=== PATIENT | male | born 1980 | race African-American/Black ===

== ENCOUNTER 2018-01-26 19:13 | Observation (INO) | payer OTHER ==
[2018-01-26] MEDS ORDERED: SODIUM CHLORIDE 0.9% 500 ML INFUS.BAG IV ONE ×2 (20:24→22:55)
[2018-01-26] MEDS ORDERED: ONDANSETRON 4 MG/2 ML VIAL IVPUSH ONE (20:25)
--- NOTE | 2018-01-26 20:30 | PDOC ---
History of Present Illness - General Chief Complaint: Blood Sugar Problem Stated Complaint: VOMIT,DIABETIC,ABD PAIN Time Seen by Provider: 01/26/18 20:07 History Source: Patient Exam Limitations: No Limitations - History of Present Illness Initial Comments: 37 yo M w a hx of diabetes presents to the ER via taxi with his mother stating he has abdominal pain, SOB and difficulty breathing, nausea, vomiting, and fevers up to 102. He went to [facility] yesterday where he said they did bloodwork , urine work, and a chest X-ray but everything looked okay so they discharged him home. He says he is back here for the same reason. He is afebrile here in the ER and he reports that he has not taken any medications for pain or fever. PCP: Darrell Saldana Allergies: Penicillin Social Hx: Denies smoking, drinking, or other illicit drug usage Past History - Past Medical History Allergies/Adverse Reactions: Allergies Allergy/AdvReac Type Severity Reaction Status Date / Time Penicillins AdvReac Verified 01/26/18 19:36 Home Medications: Ambulatory Orders Dulaglutide [Trulicity] 0.75 mg SQ WEEKLY 01/27/18 Glipizide Xl [Glucotrol Xl -] 2.5 mg PO DAILY 01/27/18 Lisinopril 5 mg PO DAILY 01/27/18 - Suicide/Smoking/Psychosocial Hx Smoking History: Current some day smoker Have you smoked in the past 12 months: No Information on smoking cessation initiated: No Hx Alcohol Use: No Drug/Substance Use Hx: No Review of Systems - Review of Systems Able to Perform ROS?: Yes Comments:: CONSTITUTIONAL: Present: Fever, chills Absent: no fatigue EYES: Absent: visual changes ENT: Absent: ear pain, no sore throat CARDIOVASCULAR: Absent: chest pain, no palpitations RESPIRATORY: Present: SOB Absent: cough GI: Present: Abdominal pain, nausea Absent: no vomiting, no constipation, no diarrhea GENITOURINARY: Absent: dysuria, no frequency, no hematuria MUSKULOSKELETAL: Absent: back pain, no arthralgia, no myalgia SKIN: Absent: rash NEURO: Absent: headache *Physical Exam - Vital Signs Last Vital Signs Temp Pulse Resp BP Pulse Ox 98.3 F 103 H 18 125/80 100 01/26/18 19:32 01/26/18 19:32 01/26/18 19:32 01/26/18 19:32 01/26/18 19:32 - Physical Exam General Appearance: Yes: Nourished, Appropriately Dressed, Moderate Distress HEENT: positive: EOMI, PRO, Normal ENT Inspection, Normal Voice Neck: positive: Trachea midline. negative: Decreased range of motion, Stridor Respiratory/Chest: positive: Lungs Clear, Normal Breath Sounds. negative: Respiratory Distress, Accessory Muscle Use, Labored Respiration Cardiovascular: positive: S1, S2, Tachycardia. negative: Edema, Murmur Vascular Pulses: Dorsalis-Pedis (R): 2+, Doralis-Pedis (L): 2+ Gastrointestinal/Abdominal: positive: Normal Bowel Sounds, Tender, Flat, Soft. negative: Distended, Guarding, Rebound Lymphatic: negative: Adenopathy Musculoskeletal: positive: Normal Inspection. negative: CVA Tenderness Extremity: positive: Normal Capillary Refill Integumentary: positive: Normal Color, Dry, Warm Neurologic: positive: pay per click strategist II-XII NML intact, Fully Oriented, Alert, Normal Mood/ Affect Moderate Sedation - Procedure Monitoring Vital Signs: Procedure Monitoring Vital Signs Temperature 98.3 F 01/26/18 19:32 Pulse Rate 103 H 01/26/18 19:32 Respiratory Rate 18 01/26/18 19:32 Blood Pressure 125/80 01/26/18 19:32 O2 Sat by Pulse Oximetry (%) 100 01/26/18 19:32 ED Treatment Course - LABORATORY CBC & Chemistry Diagram: 01/26/18 21:45 01/26/18 21:45 Medical Decision Making - Medical Decision Making 37 yo M w a hx of diabetes presents to the ER via taxi with his mother stating he has abdominal pain, SOB and difficulty breathing, nausea, vomiting, and fevers up to 102. DDx IBNLT: DKA, HHNS, Appendicitis, cholecystitis, other infection, dehydration , URI, PNA Plan: Cbc, Cmp, Acetone, UA/UC, CXR, IV hydration, Zofran, CT with contrast, re- assess. Blood glucose mildly elevated in high 200's CTAP showed sigmoid colitis which can explain the patients symptoms. He has received 4 liters of fluid and still not urinated. Despite getting zofran he cannot tolerate PO. Will admit patient for colitis and dehydration. *DC/Admit/Observation/Transfer Diagnosis at time of Disposition: Colitis, Dehydration, Unable to eat - Discharge Dispostion Condition at time of disposition: Guarded Decision to Admit order: Yes - Referrals - Patient Instructions - Post Discharge Activity
[2018-01-26 21:54] LABS: EOS % 0.1 % (0-4.5); HEMOGLOBIN 14.9 GM/dL (11.7-16.9); LYMPH % 20.7 % (8-40); MCH 32.4 pg (25.7-33.7); MCHC 35.6 g/dl (32.0-35.9); MEAN PLT VOLUME 8.5 fl (7.5-11.1); MONO % 9.7 % (3.8-10.2); NEUT % 68.5 % (42.8-82.8); PLATELET COUNT 270 K/MM3 (134-434); RBC 4.61 M/mm3 (4.00-5.60); WHITE BLOOD COUNT 9.2 K/mm3 (4.0-10.0)
[2018-01-26] MEDS ORDERED: ONDANSETRON 4 MG/2 ML VIAL ONE (21:58)
[2018-01-26 22:13] LABS: ACETONE SERUM TRACE (NEGATIVE)
[2018-01-26 22:25] LABS: ALBUMIN 3.7 g/dl (3.4-5.0); ALK PHOS 80 U/L (45-117); ANION GAP 11 MMOL/L (8-16); BILIRUBIN,TOTAL 1.1 mg/dL (0.2-1); BLOOD UREA NITROGEN 22 mg/dL (7-18); CALCIUM 8.6 mg/dL (8.5-10.1); CHLORIDE 101 mmol/L (98-107); CO2 23 mmol/L (21-32); CREATININE 1.2 mg/dL (0.55-1.3); GLUCOSE,RANDOM 285 mg/dL (74-106); POTASSIUM 4.6 mmol/L (3.5-5.1); SGOT/AST 24 U/L (15-37); SGPT/ALT 29 U/L (13-61); SODIUM 135 mmol/L (136-145); TOT PROT 6.6 g/dl (6.4-8.2)
--- NOTE | 2018-01-26 22:55 | PDOC ---
Attending Attestation - Resident Resident Name: Murali Aburto - ED Attending Attestation I have performed the following: I have examined & evaluated the patient, The case was reviewed & discussed with the resident, I agree w/resident's findings & plan, Exceptions are as noted - HPI HPI: 01/26/18 22:50 37 yo male h/o DM here with c/o n/v since 3 days. pt states he hasn't urinated in few days. no f/c c/o generalized abd pain, worse in rlq . no diarreha. no prior abd surgeries. was seen at [facility], had ua cxr and labs. was dc home. since that time pt nausea nd pain has worsenend. unable to tolerate PO. no urinary complaints except he hasnt urinated. - Physicial Exam PE: 01/26/18 22:52 awake alert dry mucous membranes. lungs clear bilaterally heart reg tachycardia. abd soft mild rlq ttp. no rebound no guarding. no cva tenderness. extwwp no rash. no edema. nuero alert oriented. - Medical Decision Making 01/26/18 22:53 37 yo m with h/o dm n/v. differnetial diagnosis includes renal failure, appendicitis, renal colic, dka electrolyte abnormalityl. pt dry on exam. will hydrate with 2 L NS, labs ct a/p ua. antiemetics, Heart Score/ECG Review #1 General ECG Interpretation: Sinus Rhythm, Normal Rate (81), Normal Intervals, No acute ischemic changes
[2018-01-26] MEDS ORDERED: ACETAMINOPHEN 1000 MG/100 ML VIAL (NON FORMULARY) IVPB ONE (23:00)
[2018-01-26] MEDS ORDERED: ACETAMINOPHEN INJECTION 100 ML IVPB ONE (23:16)
[2018-01-27] MEDS ORDERED: SODIUM CHLORIDE 0.9% 500 ML INFUS.BAG IV ONE (01:27)
[2018-01-27] MEDS ORDERED: METOCLOPRAMIDE HCL INJECTION 10 MG/2 ML VIAL IVPUSH ONE (02:05)
[2018-01-27] MEDS ORDERED: METOCLOPRAMIDE HCL INJECTION 10 MG/2 ML VIAL ONE (02:24)
[2018-01-27] MEDS ORDERED: INSULIN SLIDING SCALE (NOVOLOG) 1 VIAL SQ SCH (03:30)
[2018-01-27] MEDS ORDERED: PANTOPRAZOLE SODIUM 40 MG VIAL IVPUSH ONE (03:34)
--- NOTE | 2018-01-27 03:34 | PN ---
Teaching Attending Note Name of Resident: Moshe Martinez ATTENDING PHYSICIAN STATEMENT I saw and evaluated the patient. I reviewed the resident's note and discussed the case with the resident. I agree with the resident's findings and plan as documented. SUBJECTIVE: Seen and examined; is a 37 y/o AAM with a PMH of IDDM2 and HTN who presents with a CC of abdominal pain and vomiting since thrsday; was seen at [facility] and discharged home, per him, without any medications at home. Nothing making his sx better or worse. There was some streaky red blood/dark vomit x1 earlier today; after the red blood went darkish and green, gastric occult blood pending but BUN slightly elevated. He does relay a h/o wretching. No h/o cirrhosis, etc. He tells us his last A1c >10. No prior h/o DM gastroparesis, no mmj use, etc. Denies any history of diarrhea, bloody stool, etc. CT scan shows colitis. Was hydrated and given antiemetics and analgesia in the ER which did improve his sx slightly. He hasn't seen GI or been scoped in the past. He will be willing to try oral abx once he is cleared by GI. 10 sys ROS done and negative aside from HPI PMH and PSH reviewed FH asked and noncontributory Socially he denies drug or alcohol abuse and is a former smoker Medication list reviewed OBJECTIVE: VS, labs, imaging reviewed NAD, resting in bed CN2-12 wnl, no fnd Mildly diffusely tender without any rebound or guarding, +BS, nondistended Normal mood, appropirate behavior Lungs CTAB, sym exp Labs reviewed; slightly elevated BUN. CBC wnl. Imaging reviewed; L-sided distal colitis from splenic flexure to sigmoid, final report to follow EKG reviewed Not on the monitor ASSESSMENT AND PLAN: This is a 37 y/o AAM presenting to the ER with a CC of abdominal pain and vomiting found to have colitis; he had 1x blood in vomit with wretching and cyclical vomiting which is also suspicious for MW tear 1) Acute Colitis -Seen on CT; no wbc, no fever here but was febrile at home -IV metro/levaquin; switch to oral when cleared to by GI -Followup blood and stool cx -Checking ESR/CRP, lactoferrin, Cdif 2) Blood in Vomit -History suggests MW tear but of course will be mindful of other causes. NPO, LR@100 when NPO, IV BID Protonix, GI consult. No h/o cirrhosis, etc. Plts normal. BUN slightly elevated. Change abx to PO when OK to tolerate PO. May need procedure. Appreciate subspecialist input. Will ultimately defer management to their service and of course will contact overnight should the patient decompensate. 3) Cyclical Vomiting -As colitis is acutely the issue on CT we will treat that and manage the vomiting PRN with zofran. -If persists despite treatment consider other causes (check for DM gastroparesis , etc.) 4) Uncontrolled DM -Check A1c, SSI q4h when NPO and then move to AC+HS when eating 5) HTN -Monitor, tx if >160, confirm medications with pharmacy and ensure is on optimal tx in accordance with guidelines. FENA -LR@100 -PRN replete -NPO -As tolerated Consultants: GI Dispo: Once cleared by GI, if he is tolerating PO abx and symptomatically improved can prep for DC Full Code
[2018-01-27] MEDS ORDERED: METOCLOPRAMIDE HCL INJECTION 10 MG/2 ML VIAL IVPUSH PRN (03:37)
[2018-01-27] MEDS ORDERED: ACETAMINOPHEN 1000 MG/100 ML VIAL (NON FORMULARY) IVPB PRN (03:38)
--- NOTE | 2018-01-27 03:41 | HP ---
CHIEF COMPLAINT: Nausea, vomiting, Abdominal pain PCP: Darrell Saldana HISTORY OF PRESENT ILLNESS: 37 yo male with NIDDM, HTN, admitted following 3 days of severe abdominal pain, nausea and vomiting with intolerance to PO intake. He states he has never had anything like this before, and he denies eating any unusual foods or anything he things could have possibly gone bad. He endorses now 3 days without tolerating anything PO, saying that most of everything he attempts to eat or drink is vomited up within 5 minutes. He endorses a fever today at home of 102 orally which prompted him to come to the ED for further evaluation. He endorses a very small amount of blood in his vomit that has started today and was not initially present but otherwise states that all of his vomit comes up brown regardless of what he has tried to eat or drink. He has had an episode of gastritis 10 years ago which was treated with pepsid and resolved. He states that this is very different from that episode and the pain is worse and located on the right side of his abdomen. When asked about his diabetic history he claims he follows up with his primary care physician every 3-6 months and that he thinks his last A1C was around 12. Of note he also states that he has not moved his bowels since (4 days ago) and has not urinated since Saturday ( 3 days ago). Pts mother is present for the entirety of the interview and exam. ER course was notable for: (1) 4L NS bolus (2) Zofran and Reglan without much relief (3) CT abd/pelv noted with wall thickening consistent for colitis and a large full bladder Recent Travel: none PAST MEDICAL HISTORY: NIDDM, HTN PAST SURGICAL HISTORY: T&A as a child Social History: Smoking: Former, quit 6 months ago, hx of one black and mild a day Alcohol: Denies Drugs: Denies Family History: Allergies Penicillins Adverse Reaction (Verified 01/26/18 19:36) HOME MEDICATIONS: Home Medications Medication Instructions Recorded Dulaglutide [Trulicity] 0.75 mg SQ WEEKLY 01/27/18 Glipizide Xl [Glucotrol Xl -] 2.5 mg PO DAILY 01/27/18 Lisinopril 5 mg PO DAILY 01/27/18 REVIEW OF SYSTEMS CONSTITUTIONAL: Absent: fever, chills, diaphoresis, generalized weakness, malaise, loss of appetite, weight change HEENT: Absent: rhinorrhea, nasal congestion, throat pain, throat swelling, difficulty swallowing, mouth swelling, ear pain, eye pain, visual changes CARDIOVASCULAR: Absent: chest pain, syncope, palpitations, irregular heart rate, lightheadedness , peripheral edema RESPIRATORY: Absent: cough, shortness of breath, dyspnea with exertion, orthopnea, wheezing , stridor, hemoptysis GASTROINTESTINAL: abdominal pain, nausea, vomiting Absent: abdominal distension, , diarrhea, constipation, melena, hematochezia GENITOURINARY: Absent: dysuria, frequency, urgency, hesitancy, hematuria, flank pain, genital pain MUSCULOSKELETAL: Absent: myalgia, arthralgia, joint swelling, back pain, neck pain SKIN: Absent: rash, itching, pallor HEMATOLOGIC/IMMUNOLOGIC: Absent: easy bleeding, easy bruising, lymphadenopathy, frequent infections ENDOCRINE: Absent: unexplained weight gain, unexplained weight loss, heat intolerance, cold intolerance NEUROLOGIC: Absent: headache, focal weakness or paresthesias, dizziness, unsteady gait, seizure, mental status changes, bladder or bowel incontinence PSYCHIATRIC: Absent: anxiety, depression, suicidal or homicidal ideation, hallucinations. PHYSICAL EXAMINATION Vital Signs - 24 hr 01/26/18 01/27/18 19:32 03:35 Temperature 98.3 F 98.4 F Pulse Rate 103 H Pulse Rate [ 85 Apical] Respiratory 18 18 Rate Blood Pressure 125/80 Blood Pressure 120/84 [Left] O2 Sat by Pulse 100 100 Oximetry (%) GENERAL: A&O, mild acute distress HEAD: Normocephalic, atraumatic. EYES: PERRL, no scleral icterus EARS, NOSE, THROAT: oropharynx clear without exudates. Moist mucous membranes. NECK: supple without lymphadenopathy LUNGS: CTA b/l, no crackles or wheezes HEART: Regular rate and rhythm, normal S1 and S2 without murmur ABDOMEN: Soft, mildly tender to palpation moreso on the right, hyperoactive bowel sounds EXTREMITIES: 2+ pulses, warm, well-perfused. No peripheral edema. NEUROLOGICAL: Cranial nerves II-XII grossly intact. Normal speech. PSYCHIATRIC: Cooperative. Good eye contact. Appropriate mood and affect. SKIN: Warm, dry, no rashes or lesions noted Laboratory Results - last 24 hr 01/26/18 01/26/18 21:45 21:45 WBC 9.2 RBC 4.61 Hgb 14.9 Hct 42.0 MCV 91.0 MCH 32.4 MCHC 35.6 RDW 13.0 Plt Count 270 MPV 8.5 Absolute Neuts (auto) 6.3 Neutrophils % 68.5 Lymphocytes % 20.7 Monocytes % 9.7 Eosinophils % 0.1 Basophils % 1.0 Nucleated RBC % 0 Sodium 135 L Potassium 4.6 Chloride 101 Carbon Dioxide 23 Anion Gap 11 BUN 22 H Creatinine 1.2 Creat Clearance w eGFR > 60 Random Glucose 285 H Calcium 8.6 Total Bilirubin 1.1 H AST 24 ALT 29 Alkaline Phosphatase 80 Total Protein 6.6 Albumin 3.7 Urine Acetone Cancelled Acetone, Qual Trace ASSESSMENT/PLAN: 37 yo male with NIDDM, HTN, admitted following 3 days of severe abdominal pain, nausea and vomiting with intolerance to PO intake. Nausea/Vomiting/Abdominal pain -CT scan noted with signs of colitis, though pt claims no bowel movements for 4 days -Febrile at home but not since arrival to the hospital -WBC count 9.2 -Pt claims 2 episodes of vomiting since arrival to the hospital though have not been witnessed by staff -Reglan and Zofran given with minimal relief -Reglan 10 mg Q6 PRN -Protonix 80 mg IV push followed by 40 mg IV BID -Levaquin/Flagyl -Gastric for occult blood -Consider GI evaluation and possibility of upper endoscopy for possible Dorinda Lopez tear -Lactoferrin -Stool for occult blood, WBCs, Ova and Parasites, C.dif, Culture, H. pylori -Lactic Acid, ESR, CRP, CK -Direct Bilirubin NIDDM -Elevated blood glucose at 285 on admission -Will recheck BGM now and administer insulin appropriately -BGMs Q4 while NPO with Sliding scale coverage -A1C -Pt states he did not take his weekly trulicity today HTN -Lisinopril 5 mg PO Daily DVT Prophylaxis -Heparin 5000 units SQ TID FEN -Fluids: NS @ 100 cc/hr -Electrolytes: No electrolyte abnormalities, BMP in AM -Nutrition: NPO Disposition Observation, may need full admission depending on next 24 hours Visit type - Emergency Visit Emergency Visit: Yes ED Registration Date: 01/27/18 Care time: The patient presented to the Emergency Department on the above date and was hospitalized for further evaluation of their emergent condition. - New Patient This patient is new to me today: Yes Date on this admission: 01/27/18 - Critical Care Critical Care patient: No
[2018-01-27] MEDS ORDERED: PANTOPRAZOLE SODIUM 40 MG VIAL ONE (04:14)
[2018-01-27] MEDS ORDERED: INSULIN (NOVOLOG) ASPART 100 UNITS/ML 10ML VIAL ONE (04:15)
[2018-01-27] MEDS: SODIUM CHLORIDE 1,000 ML IV SCH (04:29)
[2018-01-27] MEDS ORDERED: HEMOQUE TEST 1 EACH EACH ONE (04:34)
[2018-01-27 05:49] VITALS: BMI 22.4
[2018-01-27] MEDS ORDERED: PNEUMOC 13-VAL CONJ-DIP CRM/PF 0.5 ML DISP.SYRIN IM ONE (05:50)
[2018-01-27] MEDS: INSULIN SLIDING SCALE (NOVOLOG) 1 VIAL SQ SCH ×5 (06:08→21:59)
[2018-01-27] MEDS: HEPARIN NA (PORCINE) 5,000 UNITS/ML 1ML VIAL SQ SCH ×2 (06:09→13:42)
[2018-01-27 07:19] LABS: BASO % 0.4 % (0-2.0); EOS % 0.4 % (0-4.5); HEMATOCRIT 38.3 % (35.4-49); HEMOGLOBIN 12.9 GM/dL (11.7-16.9); LYMPH % 33.7 % (8-40); MCH 30.7 pg (25.7-33.7); MCHC 33.7 g/dl (32.0-35.9); MEAN CELL VOLUME 91.1 fl (80-96); MEAN PLT VOLUME 7.9 fl (7.5-11.1); NEUT % 54.5 % (42.8-82.8); PLATELET COUNT 209 K/MM3 (134-434); RBC 4.21 M/mm3 (4.00-5.60); RDW 12.7 % (11.9-15.9); WHITE BLOOD COUNT 8.5 K/mm3 (4.0-10.0)
[2018-01-27 07:49] LABS: ALK PHOS 66 U/L (45-117); ANION GAP 7 MMOL/L (8-16); BLOOD UREA NITROGEN 17 mg/dL (7-18); CALCIUM 7.6 mg/dL (8.5-10.1); CHLORIDE 109 mmol/L (98-107); CO2 24 mmol/L (21-32); CREATININE 1.1 mg/dL (0.55-1.3); GLUCOSE,RANDOM 90 mg/dL (74-106); MAGNESIUM 1.8 mg/dL (1.8-2.4); PHOSPHOROUS 1.9 mg/dL (2.5-4.9); POTASSIUM 3.2 mmol/L (3.5-5.1); SGOT/AST 18 U/L (15-37); SGPT/ALT 24 U/L (13-61); SODIUM 140 mmol/L (136-145); TOT PROT 5.6 g/dl (6.4-8.2)
[2018-01-27] MEDS ORDERED: POTASSIUM PHOSPHATE 30 MM in SODIUM CHLORIDE 250 ML IVPB ONE (08:43)
[2018-01-27] MEDS ORDERED: POTASSIUM PHOSPHATE 30 MM in SODIUM CHLORIDE 500 ML IVPB ONE (08:55)
[2018-01-27 09:08] LABS: URINE APPEARANCE CLEAR; URINE BILIRUBIN NEGATIVE (<2.0 mg/dL); URINE COLOR YELLOW; URINE GLUCOSE (UA) 3+ (NEGATIVE); URINE KETONE 2+ (NEGATIVE); URINE LEUK ESTERASE NEGATIVE (NEGATIVE); URINE NITRITE NEGATIVE (NEGATIVE); URINE PROTEIN NEGATIVE (NEGATIVE)
--- NOTE | 2018-01-27 09:48 | EKG ---
Test Reason : Blood Pressure : / mmHG Vent. Rate : 081 BPM Atrial Rate : 081 BPM P-R Int : 148 ms QRS Dur : 090 ms QT Int : 372 ms P-R-T Axes : 067 069 044 degrees QTc Int : 432 ms NORMAL SINUS RHYTHM NORMAL ECG NO PREVIOUS ECGS AVAILABLE Confirmed by SHAINA ABREU MD ([id number]) on 01/27/2018 9:48:12 AM Referred By: Confirmed By:SHAINA ABREU MD
[2018-01-27] MEDS ORDERED: PANTOPRAZOLE SODIUM 40 MG VIAL IVPUSH SCH (10:00)
[2018-01-27] MEDS: PANTOPRAZOLE SODIUM 40 MG VIAL IVPUSH SCH ×2 (10:01→21:59)
[2018-01-27] MEDS: LISINOPRIL 5 MG TABLET (FP) PO SCH (10:01)
[2018-01-27] MEDS ORDERED: PT OWN MED DRAWER 7, Y5N ONE (11:11)
[2018-01-27] MEDS ORDERED: ACETAMINOPHEN 1000 MG/100 ML VIAL (NON FORMULARY) IVPB ONE (14:23)
--- NOTE | 2018-01-27 14:28 | PN ---
Teaching Attending Note Name of Resident: Laith Singh ATTENDING PHYSICIAN STATEMENT I saw and evaluated the patient. I reviewed the resident's note and discussed the case with the resident. I agree with the resident's findings and plan as documented. SUBJECTIVE: Feeling better - no more episodes of vomiting since up from ER. No abdo discomfort currently. No melena/hematochezia. OBJECTIVE: Afebrile, Hemodynamically Stable. Last Vital Signs Temp Pulse Resp BP Pulse Ox 98.8 F 86 18 120/71 99 01/27/18 13:28 01/27/18 13:28 01/27/18 13:28 01/27/18 13:28 01/27/18 10:00 HEENT - No pharyngeal erythema/exudate. No lymphadenopathy. Heart - S1, S2, RRR Lungs - Clear to auscultation - no crackles/wheeze Abdomen - soft, non-tender. Bowel Sounds normal. Extremities - no edema, no calf tenderness. Laboratory Results - last 24 hr 01/26/18 01/26/18 01/27/18 21:45 21:45 04:43 WBC 9.2 RBC 4.61 Hgb 14.9 Hct 42.0 MCV 91.0 MCH 32.4 MCHC 35.6 RDW 13.0 Plt Count 270 MPV 8.5 Absolute Neuts (auto) 6.3 Neutrophils % 68.5 Lymphocytes % 20.7 Monocytes % 9.7 Eosinophils % 0.1 Basophils % 1.0 Nucleated RBC % 0 ESR Sodium 135 L Potassium 4.6 Chloride 101 Carbon Dioxide 23 Anion Gap 11 BUN 22 H Creatinine 1.2 Creat Clearance w eGFR > 60 POC Glucometer Random Glucose 285 H Hemoglobin A1c % Lactic Acid Calcium 8.6 Phosphorus Magnesium Total Bilirubin 1.1 H Direct Bilirubin 0.2 AST 24 ALT 29 Alkaline Phosphatase 80 Creatine Kinase Total Protein 6.6 Albumin 3.7 Urine Color Urine Appearance Urine pH Ur Specific [place] Urine Protein Urine Glucose (UA) Urine Ketones Urine Blood Urine Nitrite Urine Bilirubin Urine Acetone Cancelled Urine Urobilinogen Ur Leukocyte Esterase Acetone, Qual Trace 01/27/18 01/27/18 01/27/18 04:43 04:43 04:43 WBC RBC Hgb Hct MCV MCH MCHC RDW Plt Count MPV Absolute Neuts (auto) Neutrophils % Lymphocytes % Monocytes % Eosinophils % Basophils % Nucleated RBC % ESR 7 Sodium Potassium Chloride Carbon Dioxide Anion Gap BUN Creatinine Creat Clearance w eGFR POC Glucometer Random Glucose Hemoglobin A1c % Lactic Acid 0.9 Calcium Phosphorus Magnesium Total Bilirubin Direct Bilirubin AST ALT Alkaline Phosphatase Creatine Kinase 49 Total Protein Albumin Urine Color Urine Appearance Urine pH Ur Specific [place] Urine Protein Urine Glucose (UA) Urine Ketones Urine Blood Urine Nitrite Urine Bilirubin Urine Acetone Urine Urobilinogen Ur Leukocyte Esterase Acetone, Qual 01/27/18 01/27/18 01/27/18 06:06 07:00 07:00 WBC 8.5 RBC 4.21 Hgb 12.9 Hct 38.3 MCV 91.1 MCH 30.7 MCHC 33.7 RDW 12.7 Plt Count 209 D MPV 7.9 Absolute Neuts (auto) 4.7 Neutrophils % 54.5 D Lymphocytes % 33.7 D Monocytes % 11.0 H Eosinophils % 0.4 D Basophils % 0.4 Nucleated RBC % 0 ESR Sodium 140 Potassium 3.2 L Chloride 109 H Carbon Dioxide 24 Anion Gap 7 L BUN 17 Creatinine 1.1 Creat Clearance w eGFR > 60 POC Glucometer 205 Random Glucose 90 Hemoglobin A1c % Lactic Acid Calcium 7.6 L Phosphorus 1.9 L Magnesium 1.8 Total Bilirubin 1.0 Direct Bilirubin AST 18 ALT 24 Alkaline Phosphatase 66 Creatine Kinase Total Protein 5.6 L Albumin 3.0 L Urine Color Urine Appearance Urine pH Ur Specific [place] Urine Protein Urine Glucose (UA) Urine Ketones Urine Blood Urine Nitrite Urine Bilirubin Urine Acetone Urine Urobilinogen Ur Leukocyte Esterase Acetone, Qual 01/27/18 01/27/18 01/27/18 07:00 08:00 11:21 WBC RBC Hgb Hct MCV MCH MCHC RDW Plt Count MPV Absolute Neuts (auto) Neutrophils % Lymphocytes % Monocytes % Eosinophils % Basophils % Nucleated RBC % ESR Sodium Potassium Chloride Carbon Dioxide Anion Gap BUN Creatinine Creat Clearance w eGFR POC Glucometer 128 Random Glucose Hemoglobin A1c % 14.5 H Lactic Acid Calcium Phosphorus Magnesium Total Bilirubin Direct Bilirubin AST ALT Alkaline Phosphatase Creatine Kinase Total Protein Albumin Urine Color Yellow Urine Appearance Clear Urine pH 5.0 Ur Specific [place] > 1.060 H Urine Protein Negative Urine Glucose (UA) 3+ H Urine Ketones 2+ H Urine Blood Negative Urine Nitrite Negative Urine Bilirubin Negative Urine Acetone Urine Urobilinogen 2.0 Ur Leukocyte Esterase Negative Acetone, Qual Current Medications Generic Name Dose Route Start Last Admin Trade Name Freq PRN Reason Stop Dose Admin Acetaminophen 1,000 mg 01/27/18 03:38 Ofirmev Injection - IVPB Q6H PRN PAIN OR FEVER Heparin Sodium (Porcine) 5,000 unit 01/27/18 06:00 01/27/18 13:42 Heparin - SQ 5,000 unit TID ANDI Administration Sodium Chloride 1,000 mls @ 100 mls/hr 01/27/18 03:30 01/27/18 04:29 Normal Saline - IV 100 mls/hr ASDIR ANDI Administration Metronidazole 500 mg in 100 mls @ 100 mls/hr 01/27/18 03:45 01/27/18 10:01 Flagyl 500mg Premixed Ivpb - IVPB 100 mls/hr Q8H-IV ANDI Administration Levofloxacin 750 mg in 150 mls @ 100 mls/hr 01/27/18 04:45 01/27/18 11:18 Levaquin 750 Mg Premixed Ivpb - IVPB 100 mls/hr DAILY ANDI Administration Protocol Potassium Phosphate 30 mm/ 510 mls @ 62.5 mls/hr 01/27/18 08:55 01/27/18 13: 39 Sodium Chloride IVPB 01/27/18 17:04 62.5 mls/hr ONCE ONE Administration Insulin Aspart 1 vial 01/27/18 04:36 01/27/18 11:27 Novolog Vial Sliding Scale - SQ Not Given Q4HPO [facility] Protocol Lisinopril 5 mg 01/27/18 10:00 01/27/18 10:01 Prinivil PO 5 mg DAILY ANDI Administration Metoclopramide HCl 10 mg 01/27/18 03:37 Reglan Injection - IVPUSH Q6H PRN NAUSEA AND/OR VOMITING Pantoprazole Sodium 40 mg 01/27/18 10:00 01/27/18 10:01 Protonix Iv IVPUSH 40 mg BID ANDI Administration ASSESSMENT AND PLAN: 37 year old male with DM 2, HTN, admitted with 3 day history of abdominal pain/ nausea/vomiting/fever (subjective T 102 at home), with some bloody streaks in vomitus over past 1-[address] A/P on-call read suspicious for Colitis, not endorsed on final radiology report. 1. Acute Colitis ruled out No fever/chills/leukocytosis. Discontinue Levofloxacin/Flagyl No diarrhea. No further vomiting/hematemesis. No history of gastroparesis or recent MJ use to explain cyclic vomiting. Utox pending. 2. Hematemesis Possible MV tear. H/H appears stable. Will monitor. NPO, PPI, GI consult, IV Fluids. 3. DM 2 - Uncontrolled. Claims compliance with Trulicity and Glipizide. A1C 14.5 Continue SSI q4 whle NPO pending GI consult. 4. Electrolyte abnormalities - Hypokalemia/Hypophosphatemia - sec to Vomiting Repleted. 5. HTN - Continue Lisinopril. DVT Px - SCDs GI Px - PPI.
--- NOTE | 2018-01-27 16:41 | CON.GI ---
Consult Consult Specialty:: GI Referred by:: Medicine Reason for Consultation:: hematemesis - History of Present Illness Chief Complaint: N/V History of Present Illness: 36M with h/o DM, HTN admitted for evaluation of N/V that began on Saturday, with subjective fever at home to 102. He reports vomiting 15-20 times between Saturday and Saturday, and then on Saturday had a few episodes of blood streaked emesis. Denies abdominal pain. No vomiting today. No diarrhea - in fact no bm in a few days. No rectal bleeding. Most recent A1c 14.5. - Alcohol/Substance Use Hx Alcohol Use: No - Smoking History Smoking history: Current some day smoker Have you smoked in the past 12 months: No Home Medications - Allergies Allergies/Adverse Reactions: Allergies Allergy/AdvReac Type Severity Reaction Status Date / Time Penicillins AdvReac Verified 01/26/18 19:36 - Home Medications Home Medications: Ambulatory Orders Dulaglutide [Trulicity] 0.75 mg SQ WEEKLY 01/27/18 Glipizide Xl [Glucotrol Xl -] 2.5 mg PO DAILY 01/27/18 Lisinopril 5 mg PO DAILY 01/27/18 Review of Systems - Review of Systems Constitutional: reports: Chills Eyes: reports: No Symptoms HENT: reports: No Symptoms Neck: reports: No Symptoms Cardiovascular: reports: No Symptoms Respiratory: reports: No Symptoms Gastrointestinal: reports: Nausea, Vomiting, Vomiting Blood Genitourinary: reports: No Symptoms Musculoskeletal: reports: No Symptoms Integumentary: reports: No Symptoms Neurological: reports: No Symptoms Endocrine: reports: No Symptoms Hematology/Lymphatic: reports: No Symptoms Psychiatric: reports: No Symptoms Physical Exam-GI Vital Signs: Vital Signs Temperature 98.8 F 01/27/18 13:28 Pulse Rate 86 01/27/18 13:28 Respiratory Rate 18 01/27/18 13:28 Blood Pressure 120/71 01/27/18 13:28 O2 Sat by Pulse Oximetry (%) 99 01/27/18 10:00 Constitutional: Yes: Well Nourished, No Distress Eyes: Yes: Conjunctiva Clear, EOM Intact HENT: Yes: Atraumatic, Normocephalic Neck: Yes: Supple, Trachea Midline Cardiovascular: Yes: Regular Rate and Rhythm Respiratory: Yes: CTA Bilaterally ...Auscultate: Yes: Normoactive Bowel Sounds ...Palpate: Yes: Soft. No: Guarding, Tenderness ...Rectal Exam: Yes: Deferred Extremities: Yes: WNL Neurological: Yes: WNL, Alert, Oriented Psychiatric: Yes: WNL, Alert Labs: CBC, BMP 01/27/18 07:00 01/27/18 07:00 Hepatic Panel Total Bilirubin 1.0 mg/dL (0.2-1) 01/27/18 07:00 Direct Bilirubin 0.2 mg/dL (0.0-0.2) 01/27/18 04:43 AST 18 U/L (15-37) 01/27/18 07:00 ALT 24 U/L (13-61) 01/27/18 07:00 Alkaline Phosphatase 66 U/L (45-117) 01/27/18 07:00 Albumin 3.0 g/dl (3.4-5.0) L 01/27/18 07:00 Imaging - Results Cat Scan: Report Reviewed Assessment/Plan Hematemesis - likely Dorinda Lopez vs esophagitis in the setting of recurrent emesis. Would start BID PPI. Given resolution, no need for endoscopy at this point. Would start clears and advance as tolerated. Should have GI follow up on discharge.
--- NOTE | 2018-01-27 18:12 | PN ---
Physical Exam: SUBJECTIVE: Patient seen and examined. Says he feels better this morning. Denies pain, nausea, vomiting, melena, hematochezia. OBJECTIVE: Vital Signs Period Temp Pulse Resp BP Sys/Quiñonez Pulse Ox Last 24 Hr 98.3 F-98.8 F 20-103 18-18 116-127/55-84 99-100 GENERAL: The patient is awake, alert, and fully oriented, in no acute distress. EYES: PERRL, extraocular movements intact, sclera anicteric ENT: moist mucous membranes. NECK: supple. LUNGS: Breath sounds equal, clear to auscultation bilaterally HEART: RRR ABDOMEN: Soft, nontender, nondistended, normoactive bowel sounds EXTREMITIES: 2+ pulses NEUROLOGICAL: Cranial nerves II through XII grossly intact Laboratory Results - last 24 hr 01/26/18 01/26/18 01/27/18 21:45 21:45 04:43 WBC 9.2 RBC 4.61 Hgb 14.9 Hct 42.0 MCV 91.0 MCH 32.4 MCHC 35.6 RDW 13.0 Plt Count 270 MPV 8.5 Absolute Neuts (auto) 6.3 Neutrophils % 68.5 Lymphocytes % 20.7 Monocytes % 9.7 Eosinophils % 0.1 Basophils % 1.0 Nucleated RBC % 0 ESR Sodium 135 L Potassium 4.6 Chloride 101 Carbon Dioxide 23 Anion Gap 11 BUN 22 H Creatinine 1.2 Creat Clearance w eGFR > 60 POC Glucometer Random Glucose 285 H Hemoglobin A1c % Lactic Acid Calcium 8.6 Phosphorus Magnesium Total Bilirubin 1.1 H Direct Bilirubin 0.2 AST 24 ALT 29 Alkaline Phosphatase 80 Creatine Kinase Total Protein 6.6 Albumin 3.7 Urine Color Urine Appearance Urine pH Ur Specific [place] Urine Protein Urine Glucose (UA) Urine Ketones Urine Blood Urine Nitrite Urine Bilirubin Urine Acetone Cancelled Urine Urobilinogen Ur Leukocyte Esterase Acetone, Qual Trace 01/27/18 01/27/18 01/27/18 04:43 04:43 04:43 WBC RBC Hgb Hct MCV MCH MCHC RDW Plt Count MPV Absolute Neuts (auto) Neutrophils % Lymphocytes % Monocytes % Eosinophils % Basophils % Nucleated RBC % ESR 7 Sodium Potassium Chloride Carbon Dioxide Anion Gap BUN Creatinine Creat Clearance w eGFR POC Glucometer Random Glucose Hemoglobin A1c % Lactic Acid 0.9 Calcium Phosphorus Magnesium Total Bilirubin Direct Bilirubin AST ALT Alkaline Phosphatase Creatine Kinase 49 Total Protein Albumin Urine Color Urine Appearance Urine pH Ur Specific [place] Urine Protein Urine Glucose (UA) Urine Ketones Urine Blood Urine Nitrite Urine Bilirubin Urine Acetone Urine Urobilinogen Ur Leukocyte Esterase Acetone, Qual 01/27/18 01/27/18 01/27/18 06:06 07:00 07:00 WBC 8.5 RBC 4.21 Hgb 12.9 Hct 38.3 MCV 91.1 MCH 30.7 MCHC 33.7 RDW 12.7 Plt Count 209 D MPV 7.9 Absolute Neuts (auto) 4.7 Neutrophils % 54.5 D Lymphocytes % 33.7 D Monocytes % 11.0 H Eosinophils % 0.4 D Basophils % 0.4 Nucleated RBC % 0 ESR Sodium 140 Potassium 3.2 L Chloride 109 H Carbon Dioxide 24 Anion Gap 7 L BUN 17 Creatinine 1.1 Creat Clearance w eGFR > 60 POC Glucometer 205 Random Glucose 90 Hemoglobin A1c % Lactic Acid Calcium 7.6 L Phosphorus 1.9 L Magnesium 1.8 Total Bilirubin 1.0 Direct Bilirubin AST 18 ALT 24 Alkaline Phosphatase 66 Creatine Kinase Total Protein 5.6 L Albumin 3.0 L Urine Color Urine Appearance Urine pH Ur Specific [place] Urine Protein Urine Glucose (UA) Urine Ketones Urine Blood Urine Nitrite Urine Bilirubin Urine Acetone Urine Urobilinogen Ur Leukocyte Esterase Acetone, Qual 01/27/18 01/27/18 01/27/18 07:00 08:00 11:21 WBC RBC Hgb Hct MCV MCH MCHC RDW Plt Count MPV Absolute Neuts (auto) Neutrophils % Lymphocytes % Monocytes % Eosinophils % Basophils % Nucleated RBC % ESR Sodium Potassium Chloride Carbon Dioxide Anion Gap BUN Creatinine Creat Clearance w eGFR POC Glucometer 128 Random Glucose Hemoglobin A1c % 14.5 H Lactic Acid Calcium Phosphorus Magnesium Total Bilirubin Direct Bilirubin AST ALT Alkaline Phosphatase Creatine Kinase Total Protein Albumin Urine Color Yellow Urine Appearance Clear Urine pH 5.0 Ur Specific [place] > 1.060 H Urine Protein Negative Urine Glucose (UA) 3+ H Urine Ketones 2+ H Urine Blood Negative Urine Nitrite Negative Urine Bilirubin Negative Urine Acetone Urine Urobilinogen 2.0 Ur Leukocyte Esterase Negative Acetone, Qual 01/27/18 15:21 WBC RBC Hgb Hct MCV MCH MCHC RDW Plt Count MPV Absolute Neuts (auto) Neutrophils % Lymphocytes % Monocytes % Eosinophils % Basophils % Nucleated RBC % ESR Sodium Potassium Chloride Carbon Dioxide Anion Gap BUN Creatinine Creat Clearance w eGFR POC Glucometer 156 Random Glucose Hemoglobin A1c % Lactic Acid Calcium Phosphorus Magnesium Total Bilirubin Direct Bilirubin AST ALT Alkaline Phosphatase Creatine Kinase Total Protein Albumin Urine Color Urine Appearance Urine pH Ur Specific [place] Urine Protein Urine Glucose (UA) Urine Ketones Urine Blood Urine Nitrite Urine Bilirubin Urine Acetone Urine Urobilinogen Ur Leukocyte Esterase Acetone, Qual Active Medications Generic Name Dose Route Start Last Admin Trade Name Angq PRN Reason Stop Dose Admin Acetaminophen 1,000 mg 01/27/18 03:38 Ofirmev Injection - IVPB Q6H PRN PAIN OR FEVER Sodium Chloride 1,000 mls @ 100 mls/hr 01/27/18 03:30 01/27/18 04:29 Normal Saline - IV 100 mls/hr ASDIR ANDI Administration Potassium Phosphate 30 mm/ 510 mls @ 62.5 mls/hr 01/27/18 08:55 01/27/18 13: 39 Sodium Chloride IVPB 01/27/18 17:04 62.5 mls/hr ONCE ONE Administration Insulin Aspart 1 vial 01/27/18 04:36 01/27/18 15:22 Novolog Vial Sliding Scale - SQ Not Given Q4HPO [facility] Protocol Lisinopril 5 mg 01/27/18 10:00 01/27/18 10:01 Prinivil PO 5 mg DAILY ANDI Administration Metoclopramide HCl 10 mg 01/27/18 03:37 Reglan Injection - IVPUSH Q6H PRN NAUSEA AND/OR VOMITING Pantoprazole Sodium 40 mg 01/27/18 10:00 01/27/18 10:01 Protonix Iv IVPUSH 40 mg BID ANDI Administration ASSESSMENT/PLAN: 37 year old male with DM 2, HTN, admitted with 3 day history of abdominal pain/ nausea/vomiting/fever (subjective T 102 at home), with some bloody streaks in vomitus over past 1-2 days. #Acute Colitis - ruled out -Initial CT A/P on-call read suspicious for Colitis, not endorsed on final radiology report. No fever/chills/leukocytosis. Discontinue Levofloxacin/Flagyl No diarrhea. No further vomiting/hematemesis. No history of gastroparesis or recent MJ use to explain cyclic vomiting. Utox pending. GI following: #Hematemesis Likely MW tear vs Esophagitis Protonix 40mg BID IV per GI H/H appears stable. Will monitor. GI on board IV fluids Clear liquid diet #DM 2 -Uncontrolled. Claims compliance with Trulicity and Glipizide. -A1C 14.5 -Continue SSI q4 whle NPO pending GI consult. #Electrolyte abnormalities -Hypokalemia/Hypophosphatemia - sec to Vomiting -monitor -replete as needed #HTN -Continue Lisinopril. #DVT Px -SCDs #GI Px -PPI. dispo: monitor overnight. follow CBC tomorrow. possible AM d/c Visit type - Emergency Visit Emergency Visit: Yes ED Registration Date: 01/27/18 Care time: The patient presented to the Emergency Department on the above date and was hospitalized for further evaluation of their emergent condition. - New Patient This patient is new to me today: Yes Date on this admission: 01/27/18 - Critical Care Critical Care patient: No
[2018-01-27] MEDS: ACETAMINOPHEN 325 MG TABLET (FP) PO PRN (20:41)
[2018-01-27 21:00] LABS: METHADONE, UR NEGATIVE ng/ml (CUTOFF=300); PHENCYCLIDINE,URINE NEGATIVE ng/ml (CUTOFF=25); URINE BENZODIAZEPINES NEGATIVE ng/ml (CUTOFF=200)
[2018-01-27 21:01] LABS: COCAINE, UR NEGATIVE ng/ml (CUTOFF=300); URINE AMPHETAMINES NEGATIVE ng/ml (CUTOFF=500); URINE BARBITURATES NEGATIVE ng/ml (CUTOFF=200)
[2018-01-27 21:04] LABS: OPIATES, URI POSITIVE ng/ml (CUTOFF=300)
[2018-01-27] MEDS ORDERED: SODIUM CHLORIDE NASAL SPRAY 44 ML BOTTLE NS PRN (22:11)
[2018-01-28] MEDS: ACETAMINOPHEN 325 MG TABLET (FP) PO PRN (01:12)
[2018-01-28] MEDS: SODIUM CHLORIDE 1,000 ML IV SCH ×2 (01:17→03:31)
[2018-01-28] MEDS: INSULIN SLIDING SCALE (NOVOLOG) 1 VIAL SQ SCH ×3 (01:53→10:51)
[2018-01-28 07:22] LABS: HEMATOCRIT 36.6 % (35.4-49); HEMOGLOBIN 12.3 GM/dL (11.7-16.9); MCH 30.9 pg (25.7-33.7); MCHC 33.6 g/dl (32.0-35.9); MEAN CELL VOLUME 92.2 fl (80-96); MEAN PLT VOLUME 8.7 fl (7.5-11.1); PLATELET COUNT 198 K/MM3 (134-434); RBC 3.97 M/mm3 (4.00-5.60); RDW 12.8 % (11.9-15.9); WHITE BLOOD COUNT 7.1 K/mm3 (4.0-10.0)
[2018-01-28 07:58] LABS: ALK PHOS 59 U/L (45-117); ANION GAP 9 MMOL/L (8-16); BILIRUBIN,TOTAL 1.3 mg/dL (0.2-1); BLOOD UREA NITROGEN 9 mg/dL (7-18); CALCIUM 7.8 mg/dL (8.5-10.1); CHLORIDE 107 mmol/L (98-107); CO2 21 mmol/L (21-32); CREATININE 0.9 mg/dL (0.55-1.3); GLUCOSE,RANDOM 146 mg/dL (74-106); POTASSIUM 3.9 mmol/L (3.5-5.1); SGOT/AST 17 U/L (15-37); SGPT/ALT 21 U/L (13-61); SODIUM 138 mmol/L (136-145); TOT PROT 5.1 g/dl (6.4-8.2)
[2018-01-28 08:10] LABS: ALBUMIN 2.8 g/dl (3.4-5.0); MAGNESIUM 1.6 mg/dL (1.8-2.4)
--- NOTE | 2018-01-28 09:13 | PN ---
Teaching Attending Note Name of Resident: Félix Dukes ATTENDING PHYSICIAN STATEMENT I saw and evaluated the patient. I reviewed the resident's note and discussed the case with the resident. I agree with the resident's findings and plan as documented with exceptions below. SUBJECTIVE: Patient seen and examined. Reports one episode of watery stool after solid food. SOme epigastric soreness but improved. No further nausea, vomiting or blood noted. OBJECTIVE: Vital Signs Period Temp Pulse Resp BP Sys/Quiñonez Pulse Ox Last 24 Hr 98.3 F-98.8 F 80-92 18-20 116-145/55-76 99-99 Intake & Output 01/25/18 01/26/18 01/27/18 01/28/18 23:59 23:59 23:59 23:59 Intake Total 1475 1000 Balance 1475 1000 Weight 160 lb 156 lb 1 oz General: lying in bed in no acute distress Chest: CTAB, no rales or wheezing Abdomen: soft, mild epigastric tenderness, no voluntary or involuntary guarding or rigidity, NT otherwise, positive bowel sounds Extremities: no edema Home Medications Medication Instructions Recorded Dulaglutide [Trulicity] 0.75 mg SQ WEEKLY 01/27/18 Glipizide Xl [Glucotrol Xl -] 2.5 mg PO DAILY 01/27/18 Lisinopril 5 mg PO DAILY 01/27/18 Dapagliflozin/Metformin HCl 1 each PO DAILY 01/28/18 [Xigduo Xr 10 mg-1,000 mg Tab] Glipizide 10 mg PO DAILY 01/28/18 Pioglitazone HCl [Actos] 45 mg PO DAILY 01/28/18 Simvastatin 20 mg PO HS 01/28/18 Active Medications Acetaminophen (Tylenol -) 650 mg PO Q4H PRN PRN Reason: PAIN LEVEL 1-5 OR FEVER Last Admin: 01/28/18 01:12 Dose: 650 mg Sodium Chloride (Normal Saline -) 1,000 mls @ 100 mls/hr IV ASDIR [facility] Last Admin: 01/28/18 03:31 Dose: Not Given Insulin Aspart (Novolog Vial Sliding Scale -) 1 vial SQ Q4HPO [facility]; Protocol Last Admin: 01/28/18 07:16 Dose: Not Given Lisinopril (Prinivil) 5 mg PO DAILY [facility] Last Admin: 01/27/18 10:01 Dose: 5 mg Metoclopramide HCl (Reglan Injection -) 10 mg IVPUSH Q6H PRN PRN Reason: NAUSEA AND/OR VOMITING Pantoprazole Sodium (Protonix Iv) 40 mg IVPUSH BID ANDI Last Admin: 01/27/18 21:59 Dose: 40 mg Sodium Chloride ([place] -) 2 spray NS BID PRN PRN Reason: NASAL CONGESTION Last Admin: 01/27/18 23:24 Dose: 2 sprays Laboratory Results - last 24 hr 01/27/18 01/27/18 01/27/18 11:21 15:21 18:30 WBC RBC Hgb Hct MCV MCH MCHC RDW Plt Count MPV Sodium Potassium Chloride Carbon Dioxide Anion Gap BUN Creatinine Creat Clearance w eGFR POC Glucometer 128 156 Random Glucose Calcium Phosphorus Magnesium Total Bilirubin AST ALT Alkaline Phosphatase Total Protein Albumin Stool Occult Blood Opiates Screen Positive A* Methadone Screen Negative Barbiturate Screen Negative Phencyclidine Screen Negative Ur Amphetamines Screen Negative MDMA (Ecstasy) Screen Negative Benzodiazepines Screen Negative Cocaine Screen Negative U Marijuana (THC) Screen Positive A* 01/27/18 01/27/18 01/27/18 19:08 21:58 23:50 WBC RBC Hgb Hct MCV MCH MCHC RDW Plt Count MPV Sodium Potassium Chloride Carbon Dioxide Anion Gap BUN Creatinine Creat Clearance w eGFR POC Glucometer 207 120 Random Glucose Calcium Phosphorus Magnesium Total Bilirubin AST ALT Alkaline Phosphatase Total Protein Albumin Stool Occult Blood Negative Opiates Screen Methadone Screen Barbiturate Screen Phencyclidine Screen Ur Amphetamines Screen MDMA (Ecstasy) Screen Benzodiazepines Screen Cocaine Screen U Marijuana (THC) Screen 01/28/18 01/28/18 01/28/18 06:15 06:15 07:07 WBC 7.1 RBC 3.97 L Hgb 12.3 Hct 36.6 MCV 92.2 MCH 30.9 MCHC 33.6 RDW 12.8 Plt Count 198 MPV 8.7 D Sodium 138 Potassium 3.9 Chloride 107 Carbon Dioxide 21 Anion Gap 9 BUN 9 Creatinine 0.9 Creat Clearance w eGFR > 60 POC Glucometer 143 Random Glucose 146 H Calcium 7.8 L Phosphorus 3.0 Magnesium 1.6 L Total Bilirubin 1.3 H AST 17 ALT 21 Alkaline Phosphatase 59 Total Protein 5.1 L Albumin 2.8 L Stool Occult Blood Opiates Screen Methadone Screen Barbiturate Screen Phencyclidine Screen Ur Amphetamines Screen MDMA (Ecstasy) Screen Benzodiazepines Screen Cocaine Screen U Marijuana (THC) Screen Microbiology 01/27/18 08:00 Urine - Urine Clean Catch Urine Culture - Final NO GROWTH OBTAINED Utox results reviewed ASSESSMENT AND PLAN: 37 year old male with DM 2, HTN, admitted with 3 day history of abdominal pain/ nausea/vomiting/fever (subjective T 102 at home), with some bloody streaks in vomitus over past 1-[address] A/P on-call read suspicious for Colitis, not endorsed on final radiology report. -Nausea/vomiting, ?cyclical vomitting given positive utox for marihuana -Hemetemsis, suspect jeffrey zuniga tear, resolved -Poorly controlled IDDM, A1c 14.5 -Hypokalemia -Hypophosphatemia -HTN PLan: Off levaquin/flagyl. No fever/chills/leukocytosis. Marihuana cessation counseling. GI input noted. H/h stable, no further events. Continue PPI, advance diet. Diabetic education. Patient reports getting his medications from PCP Dr. Darrell Saldana's office. Hold metformin x 48 hours on d/c COntinue lisinopril Replete lytes prn Dispo later today if tolerating diet and no concerns. Plan discussed with patient and nursing in detail, all questions answered.
[2018-01-28] MEDS: PANTOPRAZOLE SODIUM 40 MG VIAL IVPUSH SCH (09:20)
[2018-01-28] MEDS: LISINOPRIL 5 MG TABLET (FP) PO SCH (09:20)
[2018-01-28] MEDS ORDERED: INSULIN (NOVOLOG) ASPART 100 UNITS/ML 10ML VIAL ONE (10:50)
--- NOTE | 2018-01-28 14:01 | DS ---
Physical Exam: SUBJECTIVE: Patient seen and examined this AM. He states that his n/v has improved. He states that he had one episode of diarrhea following breakfast this morning. Pt denied any blood in the stool. He states he is otherwise tolerating his diet well. OBJECTIVE: Vital Signs Period Temp Pulse Resp BP Sys/Quiñonez Pulse Ox Last 24 Hr 98.2 F-98.8 F 74-85 18-20 124-145/65-76 99-99 PHYSICAL EXAM GENERAL: A&O, no acute distress HEAD: Normocephalic, atraumatic. EYES: PERRL, no scleral icterus EARS, NOSE, THROAT: oropharynx clear without exudates. Moist mucous membranes. NECK: supple without lymphadenopathy LUNGS: CTA b/l, no crackles or wheezes HEART: Regular rate and rhythm, normal S1 and S2 without murmur ABDOMEN: Soft, mildly tender to palpation more so on the right, normoactive bowel sounds EXTREMITIES: 2+ pulses, warm, well-perfused. No peripheral edema. NEUROLOGICAL: Cranial nerves II-XII grossly intact. Normal speech. PSYCHIATRIC: Cooperative. Good eye contact. Appropriate mood and affect. SKIN: Warm, dry, no rashes or lesions noted LABS Laboratory Results - last 24 hr 01/27/18 01/27/18 01/27/18 15:21 18:30 19:08 WBC RBC Hgb Hct MCV MCH MCHC RDW Plt Count MPV Sodium Potassium Chloride Carbon Dioxide Anion Gap BUN Creatinine Creat Clearance w eGFR POC Glucometer 156 207 Random Glucose Calcium Phosphorus Magnesium Total Bilirubin AST ALT Alkaline Phosphatase Total Protein Albumin Stool Occult Blood Opiates Screen Positive A* Methadone Screen Negative Barbiturate Screen Negative Phencyclidine Screen Negative Ur Amphetamines Screen Negative MDMA (Ecstasy) Screen Negative Benzodiazepines Screen Negative Cocaine Screen Negative U Marijuana (THC) Screen Positive A* 01/27/18 01/27/18 01/28/18 21:58 23:50 06:15 WBC 7.1 RBC 3.97 L Hgb 12.3 Hct 36.6 MCV 92.2 MCH 30.9 MCHC 33.6 RDW 12.8 Plt Count 198 MPV 8.7 D Sodium Potassium Chloride Carbon Dioxide Anion Gap BUN Creatinine Creat Clearance w eGFR POC Glucometer 120 Random Glucose Calcium Phosphorus Magnesium Total Bilirubin AST ALT Alkaline Phosphatase Total Protein Albumin Stool Occult Blood Negative Opiates Screen Methadone Screen Barbiturate Screen Phencyclidine Screen Ur Amphetamines Screen MDMA (Ecstasy) Screen Benzodiazepines Screen Cocaine Screen U Marijuana (THC) Screen 01/28/18 01/28/18 01/28/18 06:15 07:07 10:49 WBC RBC Hgb Hct MCV MCH MCHC RDW Plt Count MPV Sodium 138 Potassium 3.9 Chloride 107 Carbon Dioxide 21 Anion Gap 9 BUN 9 Creatinine 0.9 Creat Clearance w eGFR > 60 POC Glucometer 143 237 Random Glucose 146 H Calcium 7.8 L Phosphorus 3.0 Magnesium 1.6 L Total Bilirubin 1.3 H AST 17 ALT 21 Alkaline Phosphatase 59 Total Protein 5.1 L Albumin 2.8 L Stool Occult Blood Opiates Screen Methadone Screen Barbiturate Screen Phencyclidine Screen Ur Amphetamines Screen MDMA (Ecstasy) Screen Benzodiazepines Screen Cocaine Screen U Marijuana (THC) Screen IMAGING: CXR: no evidence of active pulmonary disease CT Abd/Pelv: Essentially normal CT without any signs of acute pathology HOSPITAL COURSE: Date of Admission:01/27/18 Date of Discharge: 01/28/18 HPI on Admission: 37 yo male with NIDDM, HTN, admitted following 3 days of severe abdominal pain, nausea and vomiting with intolerance to PO intake. He states he has never had anything like this before, and he denies eating any unusual foods or anything he things could have possibly gone bad. He endorses now 3 days without tolerating anything PO, saying that most of everything he attempts to eat or drink is vomited up within 5 minutes. He endorses a fever today at home of 102 orally which prompted him to come to the ED for further evaluation. He endorses a very small amount of blood in his vomit that has started today and was not initially present but otherwise states that all of his vomit comes up brown regardless of what he has tried to eat or drink. He has had an episode of gastritis 10 years ago which was treated with pepsid and resolved. He states that this is very different from that episode and the pain is worse and located on the right side of his abdomen. When asked about his diabetic history he claims he follows up with his primary care physician every 3-6 months and that he thinks his last A1C was around 12. Of note he also states that he has not moved his bowels since (4 days ago) and has not urinated since Saturday ( 3 days ago). Pts mother is present for the entirety of the interview and exam. Hospital Course Pt was seen by GI who did not recommend any acute EGD at this point as n/v resolved and minimal blood in emesis likely secondary to small Dorinda-Lopez tear vs esophagitis. Recommended advancing diet as tolerated and outpatient GI follow up. Pts blood sugar was 285 on admission, though pt stated compliance with all of his medications. A1C resulted at 14. However, sugars were well controlled in the hospital with insulin sliding scale and minimal insulin requirement. Pt was deemed medically safe for discharge but stressed importance of close follow up with PCP for closer glycemic monitoring and control in addition to strict adherence to diabetic diet. Minutes to complete discharge: 35 Discharge Summary Reason For Visit: VOMIT,DIABETIC,ABD PAIN Current Active Problems Colitis (Acute) Dehydration (Acute) Unable to eat (Acute) Condition: Stable - Instructions Diet, Activity, Other Instructions: You were admitted to the hospital for severe abdominal pain with associated nausea and vomiting. A CT scan was performed which did not reveal any concerning abnormalities. You also had some blood in your vomit so there was some concern for a small tear in your esophagus. This resolved and you were seen by a GI specialist who did not recommend any emergent procedures or endoscopy, though recommended outpatient follow up in the office after you are discharged from the hospital. Your pain, nausea, and vomiting have improved and at this time you are medically safe for discharge. Of note, your blood sugar levels were noted to be very high when you were admitted to the hospital. Your A1C (shows how well your sugars are controlled) was 14 which is very high. Your blood sugars were controlled well in the hospital using insulin. It is important that you follow up with your primary care physician very soon after you are discharged from the hospital. You will likely require continued insulin therapy in addition to better diet management for better control of your blood sugar. DIET: Diabetic diet ACTIVITY: as tolerated. Strongly recommend marijuana cessation. Home blood glucose monitoring before meals and at bedtime and maintain a diary. Notify doctor if <75 or persistently > 140 noted. If you are not eating well or blood sugars persistently < 80 please come to ED or hold your diabetes medications and call your doctor. MEDICATION CHANGES: HOLD DAPAGLIFLOZIN/METFORMIN (XIGDUO XR 10-1000) FOR 48 HOURS AND THEN RESUME IF EATING WELL. Continue other medications as before. FOLLOW UP: You should follow up with your primary care physician within one week of discharge from the hospital. You should also follow up with the GI specialist that saw you in the hospital for further management and follow up. If you have any concerning nausea, vomiting, or abdominal pain or any concerning symptoms of any kind, it is important that you be seen by your primary care physician or return to the Emergency Department Referrals: Darrell Saldana MD [Non Staff, Medical] - Cassi Vieira MD [Staff Physician] - Disposition: HOME - Home Medications Comprehensive Discharge Medication List: Ambulatory Orders Dulaglutide [Trulicity] 0.75 mg SQ WEEKLY 01/27/18 Lisinopril 5 mg PO DAILY 01/27/18 Glipizide 10 mg PO DAILY 01/28/18 Pioglitazone HCl [Actos] 45 mg PO DAILY 01/28/18 Simvastatin 20 mg PO HS 01/28/18 This patient is new to me today: No Emergency Visit: Yes ED Registration Date: 01/27/18 Care time: The patient presented to the Emergency Department on the above date and was hospitalized for further evaluation of their emergent condition. Critical Care patient: No - Discharge Referral Referred to [facility] Med [facility] No
[2018-01-28 14:24] VITALS: BP 123/71; PULSE 71; TEMP 98.6
[2018-01-28] MEDS ORDERED: INSULIN SLIDING SCALE (NOVOLOG) 1 VIAL SQ SCH (16:30)
== END 2018-01-28 17:20 | disposition home or self-care (01) ==
LOC: JER 19:13 → JERBED 01-27 02:04 → J7W 01-27 05:15
PROVIDERS: ADMIT Internal Medicine; ATTEND Hospitalist
PROC: 3E03329 Introduction of Other Anti-infective into Peripheral Vein, Percutaneous Approach (ICD-10-PCS; principal; 2018-01-27)
PROC: 3E033NZ Introduction of Analgesics, Hypnotics, Sedatives into Peripheral Vein, Percutaneous Approach (ICD-10-PCS; 2018-01-27)
PROC: 3E033GC Introduction of Other Therapeutic Substance into Peripheral Vein, Percutaneous Approach (ICD-10-PCS; 2018-01-27)
PROC: 3E0337Z Introduction of Electrolytic and Water Balance Substance into Peripheral Vein, Percutaneous Approach (ICD-10-PCS; 2018-01-27)
PROC: 3E013VG Introduction of Insulin into Subcutaneous Tissue, Percutaneous Approach (ICD-10-PCS; 2018-01-27)
PROC: 3E013GC Introduction of Other Therapeutic Substance into Subcutaneous Tissue, Percutaneous Approach (ICD-10-PCS; 2018-01-27)
PROC: 3E0234Z Introduction of Serum, Toxoid and Vaccine into Muscle, Percutaneous Approach (ICD-10-PCS; 2018-01-27)
DX: K92.0 Hematemesis (principal); G43.A0 Cyclical vomiting, in migraine, not intractable; E86.0 Dehydration; E11.65 Type 2 diabetes mellitus with hyperglycemia; E87.8 Other disorders of electrolyte and fluid balance, not elsewhere classified; E87.6 Hypokalemia; E83.39 Other disorders of phosphorus metabolism; I10 Essential (primary) hypertension; R63.8 Other symptoms and signs concerning food and fluid intake; R79.89 Other specified abnormal findings of blood chemistry; F17.210 Nicotine dependence, cigarettes, uncomplicated; Z79.84 Long term (current) use of oral hypoglycemic drugs; Z88.0 Allergy status to penicillin; Z23 Encounter for immunization
CPT/HCPCS: 36415; 71046-TC-FY; 74177-TC; 80053; 80307; 81003; 82009; 82248; 82272; 82550; 82962; 83036; 83605; 83735; 84100; 85025; 85027; 85651; 87086; 87205; 87324; 87449; 90471; 90670; 93005; 93010; 96365; 96366; 96372; 96375; 96376; 99285-25; G0378; J0131; J1644; J7030; Q9967

== ENCOUNTER 2019-08-12 06:39 | Inpatient (IN) | payer OTHER ==
[2019-08-12] MEDS ORDERED: PANTOPRAZOLE SODIUM 40 MG VIAL IVPUSH ONE (07:38)
[2019-08-12] MEDS ORDERED: LACTATED RINGERS SOLUTION 1,000 ML/1,000 ML INFUS.BAG IV STA ×2 (07:38→09:07)
[2019-08-12] MEDS ORDERED: METOCLOPRAMIDE HCL INJECTION 10 MG/2 ML VIAL IVPUSH ONE ×2 (07:39→15:06)
[2019-08-12] MEDS ORDERED: METOCLOPRAMIDE HCL INJECTION 10 MG/2 ML VIAL ONE ×2 (07:43→15:06)
[2019-08-12] MEDS ORDERED: PANTOPRAZOLE SODIUM 80 MG/200 ML BAG IVPB ONE (07:44)
[2019-08-12 08:52] LABS: BASO % 0.1 % (0-2.0); HEMATOCRIT 45.4 % (35.4-49); HEMOGLOBIN 14.9 GM/dL (11.7-16.9); LYMPH % 7.7 % (8-40); MCH 31.5 pg (25.7-33.7); MCHC 32.9 g/dl (32.0-35.9); MEAN CELL VOLUME 95.7 fl (80-96); MEAN PLT VOLUME 9.2 fl (7.5-11.1); MONO % 5.6 % (3.8-10.2); NEUT % 86.6 % (42.8-82.8); PLATELET COUNT 285 K/MM3 (134-434); RBC 4.74 M/mm3 (4.00-5.60); RDW 14.4 % (11.9-15.9); WHITE BLOOD COUNT 13.3 K/mm3 (4.0-10.0)
[2019-08-12 09:00] LABS: INR 1.13 (0.83-1.09); PROTHROMBIN TIME (PATIENT) 13.3 SEC (9.7-13.0)
--- NOTE | 2019-08-12 09:06 | PDOC ---
Documentation entered by Lana Baldwin SCRIBE, acting as scribe for Martinez Chopra MD. Martinez Chopra MD: This documentation has been prepared by the Denny fenton Sydney, SCRIBE, under my direction and personally reviewed by me in its entirety. I confirm that the documentation accurately reflects all work, treatment, procedures, and medical decision making performed by me. History of Present Illness - General Chief Complaint: Nausea/Vomiting Stated Complaint: VOMITING History Source: Patient Exam Limitations: No Limitations - History of Present Illness Initial Comments: 08/12/19 07:49 Patient is a 38 year old male with a significant past medical history of DM, HTN who presents to the ED with one day of diffuse abdominal pain with associated nausea and vomiting. As per patient, his emesis originally had gastric contents, but now is coffee ground emesis. He notes his abdominal is severe, constant, and non-radiating. Patient reports an EGD six months ago that was unremarkable. Denies headache, fever, chills, chest pain, diarrhea, constipation. Denies dysuria, hematuria, frequency, or urgency. Social history: No reported hx of tobacco use, alcohol use or illicit drug use. Past History - Medical History Allergies/Adverse Reactions: Allergies Allergy/AdvReac Type Severity Reaction Status Date / Time Penicillins AdvReac Verified 06/30/19 15:00 Home Medications: Ambulatory Orders Lisinopril 5 mg PO DAILY 01/27/18 Simvastatin 20 mg PO HS 01/28/18 Albuterol Sulfate [Albuterol Sulfate Hfa] 8.5 gm IH Q6H PRN 06/30/19 Cholecalciferol (Vitamin D3) [Vitamin D3 -] 50,000 unit PO WEEKLY 06/30/19 Metoclopramide HCl [Reglan] 5 mg PO Q12H #14 tablet 07/02/19 Pantoprazole Sodium [Protonix] 40 mg PO DAILY #30 tablet. 07/02/19 Insulin Glargine,Hum.rec.anlog [Basaglar Kwikpen U-100] 20 unit SQ HS 08/12/19 Anemia: No Asthma: No Cancer: No Cardiac Disorders: No CVA: No COPD: No CHF: No Dementia: No Diabetes: Yes GI Disorders: No Disorders: No HTN: Yes Hypercholesterolemia: No Liver Disease: No Seizures: No Thyroid Disease: No - Surgical History Abdominal Surgery: No Appendectomy: No Cardiac Surgery: No Cholecystectomy: No Lung Surgery: No Neurologic Surgery: No Orthopedic Surgery: No - Immunization History Td Vaccination: Yes Immunization Up to Date: Yes - Psycho-Social/Smoking History Smoking History: Never smoked Have you smoked in the past 12 months: No If you are a former smoker, when did you quit?: 3 years Review of Systems - Review of Systems Able to Perform ROS?: Yes Comments:: 08/12/19 07:50 CONSTITUTIONAL: No fever, no chills, no fatigue EYES: No visual changes ENT: No ear pain, no sore throat CARDIOVASCULAR: No chest pain, no palpitations RESPIRATORY: No cough, no SOB GI: + abdominal pain, nausea, vomiting. No constipation, no diarrhea GENITOURINARY: No dysuria, no frequency, no hematuria MUSKULOSKELETAL: No back pain, no joint pain, no myalgias SKIN: No rash NEURO: No headache *Physical Exam - Physical Exam 08/12/19 09:01 EXAMINATION CONSTITUTIONAL: AOx3, well nourished, actively vomitting HEAD: Normocephalic; atraumatic EYES: PERRL; EOM intact, no icterus ENMT: External appears normal; mm-dry NECK: Supple; non-tender; no cervical lymphadenopathy CARD: Normal S1, S2; no murmurs, rubs, or gallops RESP: Normal chest excursion with respiration; breath sounds clear and equal bilaterally; no wheezes, rhonchi, or rales ABD: Soft, non-distended; +epig tender; no palpable organomegaly, no palpable hernias EXT: Normal ROM in all four extremities; non-tender to palpation; distal pulses intact SKIN: Warm, dry, no rash NEURO: No focal neurological deficiencies. ED Treatment Course - LABORATORY CBC & Chemistry Diagram: 08/12/19 14:00 08/12/19 07:40 Medical Decision Making - Medical Decision Making 08/12/19 09:04 Patient is a 38-year-old male with history of diabetes, diabetic gastroparesis, hypertension who presents with nausea, and persistent initially gastric content but now coffee-ground emesis associated with epigastric pain. Patient is hemodynamically stable with mild focal epigastric discomfort on physical exam. Vital signs are noted. I suspect Dorinda-Lopez versus gastritis versus esophagitis. Will administer IV fluids, IV Protonix, IV Reglan and Benadryl. Will obtain CBC/CMP/lipase. Will obtain type and screen. Will consult GI. Likely admission. 08/12/19 09:59 Patient hemodynamically stable. Vomiting has ceased. First hematocrit is noted to be 45. No indication for packed RBC transfusion at this time. Will consult GI. Will admit. 08/12/19 09:59 08/12/19 15:05 Patient complaining of nausea. Will administer Reglan and Benadryl. Discharge - Discharge Information Problems reviewed: Yes Clinical Impression/Diagnosis: Upper GI bleed, Diabetic gastroparesis, Coffee ground emesis Condition: Fair - Admission Yes - Follow up/Referral - Patient Discharge Instructions - Post Discharge Activity
[2019-08-12 09:38] LABS: ALBUMIN 4.4 g/dl (3.4-5.0); BILIRUBIN,TOTAL 1.2 mg/dL (0.2-1); BLOOD UREA NITROGEN 25.7 mg/dL (7-18); CALCIUM 9.6 mg/dL (8.5-10.1); TOT PROT 7.9 g/dl (6.4-8.2)
[2019-08-12 09:41] LABS: CREATININE 1.5 mg/dL (0.55-1.3)
--- NOTE | 2019-08-12 13:18 | CON.GI ---
Consult - History of Present Illness History of Present Illness: The patient is a 38 yo male who presents today for abdominal pain associated with nausea and coffee ground emesis. His pain is around a 6 out of 10. His last vomiting was on the way to the hospital. His GI physician is associated with [facility]. The last time he had an egd and colonoscopy were approximately 3 to 4 months ago and were negative as per the patient. He had a BM yesterday which was loose and then followed by a soft BM. He denies any fever/chills/cough. - History Source History Provided By: Patient Limitations to Obtaining History: No Limitations - Past Medical History Cardio/Vascular: Yes: HTN Pulmonary: Yes: Asthma (last used inhaler 1 week ago) Gastrointestinal: Yes: Gastritis (for 10-11 years, GI doctor at [facility] last EGD 3 to 4 months ago, as well as colonscopy(different times)), Other (gastroparesis) Hepatobiliary: Yes: Other (no history of HIV). No: Hepatitis A, Hepatitis B, Hepatitis C Heme/Onc: No: Bleeding Disorder Infectious Disease: No: HIV Endocrine: Yes: Diabetes Mellitus - Past Surgical History Past Surgical History: Yes: Tonsillectomy - Alcohol/Substance Use Hx Alcohol Use: No History of Substance Use: reports: None - Smoking History Smoking history: Never smoked Have you smoked in the past 12 months: No If you are a former smoker, when did you quit?: 3 years <Rody Shell - Last Filed: 08/12/19 13:51> Home Medications <Rody Shell - Last Filed: 08/12/19 13:51> <Irina Gagnon - Last Filed: 08/12/19 16:43> - Allergies Allergies/Adverse Reactions: Allergies Allergy/AdvReac Type Severity Reaction Status Date / Time Penicillins AdvReac Verified 06/30/19 15:00 - Home Medications Home Medications: Ambulatory Orders Lisinopril 5 mg PO DAILY 01/27/18 Simvastatin 20 mg PO HS 01/28/18 Albuterol Sulfate [Albuterol Sulfate Hfa] 8.5 gm IH Q6H PRN 06/30/19 Cholecalciferol (Vitamin D3) [Vitamin D3 -] 50,000 unit PO WEEKLY 06/30/19 Metoclopramide HCl [Reglan] 5 mg PO Q12H #14 tablet 07/02/19 Pantoprazole Sodium [Protonix] 40 mg PO DAILY #30 tablet. 07/02/19 Insulin Glargine,Hum.rec.anlog [Carlos A Vance U-100] 20 unit SQ HS 08/12/19 Review of Systems - Review of Systems Constitutional: denies: Chills, Fever Cardiovascular: denies: Chest Pain, Palpitations Respiratory: denies: Cough, SOB Gastrointestinal: reports: Abdominal Pain, Nausea, Vomiting Blood. denies: Constipation, Melena Genitourinary: denies: Burning, Dysuria <Metzen,Rody - Last Filed: 08/12/19 13:51> Physical Exam-GI Vital Signs: Vital Signs Temperature 98.7 F 08/12/19 08:12 Pulse Rate 85 08/12/19 08:12 Respiratory Rate 18 08/12/19 08:12 Blood Pressure 142/71 08/12/19 08:12 O2 Sat by Pulse Oximetry (%) 100 08/12/19 08:12 Eyes: No: Sclera Icterus HENT: Yes: Atraumatic, Normocephalic Cardiovascular: Yes: WNL, Regular Rate and Rhythm Respiratory: Yes: WNL, Regular, CTA Bilaterally Gastrointestinal Inspection: No: Distention ...Palpate: Yes: Mass, Soft, Tenderness, Epigastium (tenderness to epigastric ar ea>RUQ. Mild RUQ tenderness). No: Guarding, Tenderness, Rebound ...Rectal Exam: Yes: Sphincter Tone Normal, Other (no gross blood with examination). No: Mass Edema: No Psychiatric: Yes: WNL, Alert, Oriented Labs: CBC, BMP 08/12/19 07:40 08/12/19 07:40 INR, PTT INR 1.13 (0.83-1.09) H 08/12/19 07:40 Laboratory Tests 07/02/19 07/02/19 08/12/19 08:05 08:05 07:40 WBC 11.3 H Hgb 14.7 Hct 41.6 BUN 16.1 Creatinine 0.9 POC Glucometer Random Glucose 98 291 H Total Bilirubin 1.0 1.2 H AST 21 18 ALT 20 32 Alkaline Phosphatase 76 87 Total Protein 6.7 7.9 Albumin 3.6 4.4 Lipase 32 L COVID-19 ([facility]) 08/12/19 08/12/19 09:04 09:08 WBC Hgb Hct BUN Creatinine POC Glucometer 292 Random Glucose Total Bilirubin AST ALT Alkaline Phosphatase Total Protein Albumin Lipase COVID-19 ([facility]) Pending <Rody Shell - Last Filed: 08/12/19 13:51> Vital Signs: Vital Signs Temperature 98.7 F 08/12/19 08:12 Pulse Rate 85 08/12/19 08:12 Respiratory Rate 18 08/12/19 08:12 Blood Pressure 142/71 08/12/19 08:12 O2 Sat by Pulse Oximetry (%) 100 08/12/19 08:12 Labs: CBC, BMP 08/12/19 14:00 08/12/19 07:40 INR, PTT INR 1.13 (0.83-1.09) H 08/12/19 07:40 <Irina Gagnon - Last Filed: 08/12/19 16:43> Imaging - Results Other: Report Reviewed (no acute infiltrate/effusion) <Rody Shell - Last Filed: 08/12/19 13:51> Problem List - Problems (1) Nausea & vomiting Assessment/Plan: PATIENT WAS SEEN AND EXAMINED IMPRESSION: NAUSEA/ VOMITING SECONDARY TO GASTROPARESIS COMPLICATED BY GI BLEED/ COFFEE GROUND EMESIS DDX - EMANUEL LEBLANC TEAR / ESOPHAGITIS/ PUD. THERE IS NO SIGN OF AN OVERT GI BLEED AT THIS TIME HE IS HEMODYNAMICALLY STABLE. 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
[2019-08-12] MEDS ORDERED: FAMOTIDINE 20 MG/50 ML IVPB 20 MG/50 ML MG IVPB ONE ×2 (14:07→14:10)
[2019-08-12] MEDS ORDERED: MAG HYDROX/AL HYDROX/SIMETH 30 ML UNIT-DOSE CUP PO ONE (14:07)
[2019-08-12] MEDS ORDERED: MAG HYDROX/AL HYDROX/SIMETH 30 ML UNIT-DOSE CUP ONE (14:09)
[2019-08-12] MEDS: LACTATED RINGERS SOLUTION 1,000 ML/1,000 ML INFUS.BAG IV SCH (14:26)
--- NOTE | 2019-08-12 14:29 | HP ---
Admitting History and Physical - Primary Care Physician PCP: Meli Farias - Admission Chief Complaint: abdominal pain History of Present Illness: 38 year old male with a significant past medical history of DM, HTN who presents to the ED with one day of diffuse abdominal pain with associated nausea and vomiting. As per patient, his emesis originally had gastric contents, but now is coffee ground emesis. He notes his abdominal is severe, constant, and non- radiating. Patient reports an EGD six months ago that was unremarkable. Denies headache, fever, chills, chest pain, diarrhea, constipation. Denies dysuria, hematuria, frequency, or urgency. Social history: No reported hx of tobacco use, alcohol use or illicit drug use. - Past Medical History Cardiovascular: Yes: HTN Pulmonary: Yes: Asthma (last used inhaler 1 week ago) Gastrointestinal: Yes: Gastritis (for 10-11 years, GI doctor at [facility] last EGD 3 to 4 months ago, as well as colonscopy(different times)), Other (gastroparesis) Hepatobiliary: Yes: Other (no history of HIV). No: Hepatitis A, Hepatitis B, Hepatitis C Heme/Onc: No: Bleeding Disorder Infectious Disease: No: HIV Endocrine: Yes: Diabetes Mellitus - Past Surgical History Past Surgical History: Yes: Tonsillectomy - Smoking History Smoking history: Never smoked Have you smoked in the past 12 months: No If you are a former smoker, when did you quit?: 3 years - Alcohol/Substance Use Hx Alcohol Use: No History of Substance Use: reports: None Home Medications - Allergies Allergies/Adverse Reactions: Allergies Allergy/AdvReac Type Severity Reaction Status Date / Time Penicillins AdvReac Verified 06/30/19 15:00 - Home Medications Home Medications: Ambulatory Orders Lisinopril 5 mg PO DAILY 01/27/18 Simvastatin 20 mg PO HS 01/28/18 Albuterol Sulfate [Albuterol Sulfate Hfa] 8.5 gm IH Q6H PRN 06/30/19 Cholecalciferol (Vitamin D3) [Vitamin D3 -] 50,000 unit PO WEEKLY 06/30/19 Metoclopramide HCl [Reglan] 5 mg PO Q12H #14 tablet 07/02/19 Pantoprazole Sodium [Protonix] 40 mg PO DAILY #30 tablet. 07/02/19 Insulin Glargine,Hum.rec.anlog [Basaglar Kwikpen U-100] 20 unit SQ HS 08/12/19 Physical Examination Vital Signs: Vital Signs Temperature 98.7 F 08/12/19 08:12 Pulse Rate 85 08/12/19 08:12 Respiratory Rate 18 08/12/19 08:12 Blood Pressure 142/71 08/12/19 08:12 O2 Sat by Pulse Oximetry (%) 100 08/12/19 08:12 Constitutional: Yes: No Distress HENT: Yes: Atraumatic Neck: Yes: Supple Cardiovascular: Yes: Regular Rate and Rhythm Respiratory: Yes: CTA Bilaterally Gastrointestinal: Yes: Normal Bowel Sounds Extremities: Yes: WNL Neurological: Yes: Alert, Oriented Labs: CBC, BMP 08/12/19 07:40 08/12/19 07:40 Imaging - Results X-ray: Report Reviewed Problem List - Problems (1) Coffee ground emesis Assessment/Plan: bettr now, no more vomitting iv PROTONIX npo ivf gi eval/egd Code(s): K92.0 - HEMATEMESIS (2) Diabetic gastroparesis Assessment/Plan: insulin bgms Code(s): 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; K31.84 - GASTROPARESIS (3) Upper GI bleed Code(s): K92.2 - GASTROINTESTINAL HEMORRHAGE, UNSPECIFIED Assessment/Plan Laboratory Tests 08/12/19 08/12/19 08/12/19 07:40 07:40 07:40 WBC 13.3 H RBC 4.74 Hgb 14.9 Hct 45.4 MCV 95.7 MCH 31.5 MCHC 32.9 RDW 14.4 Plt Count 285 MPV 9.2 D Absolute Neuts (auto) 11.5 H Neutrophils % 86.6 H Lymphocytes % 7.7 L D Monocytes % 5.6 Eosinophils % 0.0 Basophils % 0.1 Nucleated RBC % 0 PT with INR 13.30 H INR 1.13 H Sodium 136 Potassium 4.0 Chloride 100 Carbon Dioxide 23 Anion Gap 13 BUN 25.7 H Creatinine 1.5 H Est GFR (CKD-EPI)AfAm 67.95 Est GFR (CKD-EPI)NonAf 58.63 POC Glucometer Random Glucose 291 H Calcium 9.6 Total Bilirubin 1.2 H AST 18 ALT 32 Alkaline Phosphatase 87 Total Protein 7.9 Albumin 4.4 Lipase 32 L Blood Type Antibody Screen 08/12/19 08/12/19 07:40 09:04 WBC RBC Hgb Hct MCV MCH MCHC RDW Plt Count MPV Absolute Neuts (auto) Neutrophils % Lymphocytes % Monocytes % Eosinophils % Basophils % Nucleated RBC % PT with INR INR Sodium Potassium Chloride Carbon Dioxide Anion Gap BUN Creatinine Est GFR (CKD-EPI)AfAm Est GFR (CKD-EPI)NonAf POC Glucometer 292 Random Glucose Calcium Total Bilirubin AST ALT Alkaline Phosphatase Total Protein Albumin Lipase Blood Type O POSITIVE Antibody Screen Negative Active Medications Generic Name Dose Route Start Last Admin Trade Name Freq PRN Reason Stop Dose Admin Famotidine/Sodium Chloride 20 mg in 50 mls @ 100 mls/hr 08/12/19 14:07 08/12/19 14:25 Pepcid 20 Mg Premixed Ivpb - IVPB 08/12/19 14:36 100 mls/hr ONCE ONE Administration Lactated Ringer's 1,000 ml in 1,000 mls @ 125 mls/hr 08/12/19 14:15 08/12/19 14:26 Lactated Ringers Solution IV 125 mls/hr ASDIR ANDI Administration
[2019-08-12 14:53] LABS: BASO % 0.2 % (0-2.0); HEMATOCRIT 40.2 % (35.4-49); HEMOGLOBIN 13.5 GM/dL (11.7-16.9); LYMPH % 8.7 % (8-40); MCH 31.8 pg (25.7-33.7); MCHC 33.6 g/dl (32.0-35.9); MEAN CELL VOLUME 94.6 fl (80-96); MEAN PLT VOLUME 8.9 fl (7.5-11.1); MONO % 9.5 % (3.8-10.2); NEUT % 81.6 % (42.8-82.8); PLATELET COUNT 260 K/MM3 (134-434); RBC 4.25 M/mm3 (4.00-5.60); RDW 13.8 % (11.9-15.9); WHITE BLOOD COUNT 12.8 K/mm3 (4.0-10.0)
[2019-08-12] MEDS: INSULIN SLIDING SCALE (NOVOLOG) 1 VIAL SQ SCH ×3 (16:38→23:10)
[2019-08-12] MEDS: SODIUM CHLORIDE 1,000 ML IV SCH (16:39)
[2019-08-13 03:59] VITALS: BMI 24.5
[2019-08-13] MEDS: INSULIN SLIDING SCALE (NOVOLOG) 1 VIAL SQ SCH ×4 (06:40→21:37)
[2019-08-13 08:08] LABS: BASO % 0.4 % (0-2.0); EOS % 0.1 % (0-4.5); HEMATOCRIT 43.3 % (35.4-49); HEMOGLOBIN 14.4 GM/dL (11.7-16.9); LYMPH % 10.3 % (8-40); MCH 31.9 pg (25.7-33.7); MCHC 33.2 g/dl (32.0-35.9); MEAN CELL VOLUME 96.1 fl (80-96); MEAN PLT VOLUME 9.2 fl (7.5-11.1); MONO % 10.6 % (3.8-10.2); NEUT % 78.6 % (42.8-82.8); PLATELET COUNT 229 K/MM3 (134-434); RDW 14.1 % (11.9-15.9); WHITE BLOOD COUNT 14.8 K/mm3 (4.0-10.0)
[2019-08-13 08:25] LABS: ALBUMIN 3.7 g/dl (3.4-5.0); BILIRUBIN,DIRECT 0.2 mg/dL (0.0-0.2); BILIRUBIN,TOTAL 1.1 mg/dL (0.2-1); BLOOD UREA NITROGEN 19.4 mg/dL (7-18); CALCIUM 8.7 mg/dL (8.5-10.1); CREATININE 1.1 mg/dL (0.55-1.3); TOT PROT 6.7 g/dl (6.4-8.2)
[2019-08-13] MEDS: LISINOPRIL 5 MG TABLET (FP) PO SCH (09:24)
[2019-08-13] MEDS: PANTOPRAZOLE SODIUM 40 MG VIAL IVPUSH SCH (09:24)
[2019-08-13] MEDS: SODIUM CHLORIDE 1,000 ML IV SCH (09:32)
[2019-08-13] MEDS ORDERED: ONDANSETRON 4 MG/2 ML VIAL IVPUSH PRN (11:49)
--- NOTE | 2019-08-13 13:12 | PN.GI ---
GI Progress Note Subjective: Some vomiting this morning States nausea better now, given zofran Patient follows with knitted goods shaper Dr. Frye in [place]. Spoke with : States that Jorge A has EGD/Colonoscopy 5-6 monthas ago (EGD OK, Polyps in colon per) and gastric emptying study revealing severe gastroparesis. Patient has been on regaln and zofran as outpatient without good result. Jorge A states that he last smoked marijuana 2 weeks ago. He says that he tried stopping and that it did not help his nausea - Objective Vital Signs: Vital Signs Oral Temp 99 on my exam Temperature 99 F 08/13/19 12:00 Pulse Rate 71 08/13/19 08:35 Respiratory Rate 18 08/13/19 08:35 Blood Pressure 137/74 08/13/19 08:35 O2 Sat by Pulse Oximetry (%) 98 08/13/19 09:00 Constitutional: Calm Eyes: No: Sclera Icterus Cardiovascular: Yes: Regular Rate and Rhythm Respiratory: Yes: CTA Bilaterally Gastrointestinal Inspection: No: Distention ...Auscultate: Yes: Normoactive Bowel Sounds ...Palpate: Yes: Soft. No: Guarding, Hepatomegaly, Splenomegaly, Tenderness Edema: No (No LE edema) Labs: CBC, BMP 08/13/19 06:57 08/13/19 06:57 INR, PTT INR 1.13 (0.83-1.09) H 08/12/19 07:40 Problem List - Problems (1) Diabetic gastroparesis Assessment/Plan: H/H quite stable. I do not think this is a primary bleeding event. I suspec he is vomiting retained gastric content and may have reflux esophagitis. No tyree vomiting of blood that would bve suggestive of a jeffrey zuniga tear. Advise: EGD deferred. No urgent indication at this time and COVID is still pending IV hydration Protonix 40mg once daily Ordered EKG. If no QT prolongation, will start low dose erythromycin 50mg IVPB Q8H for 4 doses Will need follow-up with his knitted goods shaper upon discharge and consideration would likely need to be given to have him evaluated at a motility center. 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
--- NOTE | 2019-08-13 15:15 | PN ---
Progress Note, Physician History of Present Illness: events noted gi eval reviewed - Current Medication List Current Medications: Active Medications Lactated Ringer's (Lactated Ringers Solution) 1,000 ml in 1,000 mls @ 75 mls/hr IV ASDIR ANDI Insulin Aspart (Novolog Vial Sliding Scale -) 1 vial SQ ACHS [facility]; Protocol Last Admin: 08/13/19 11:19 Dose: Not Given Documented by: Lisinopril (Prinivil) 5 mg PO DAILY [facility] Last Admin: 08/13/19 09:24 Dose: 5 mg Documented by: Ondansetron HCl (Zofran Injection) 4 mg IVPUSH Q6H PRN PRN Reason: NAUSEA AND/OR VOMITING Pantoprazole Sodium (Protonix Iv) 40 mg IVPUSH DAILY [facility] Last Admin: 08/13/19 09:24 Dose: 40 mg Documented by: - Objective Vital Signs: Vital Signs Temperature 98.8 F 08/13/19 14:30 Pulse Rate 72 08/13/19 14:30 Respiratory Rate 18 08/13/19 14:30 Blood Pressure 151/98 08/13/19 14:30 O2 Sat by Pulse Oximetry (%) 98 08/13/19 09:00 Constitutional: Yes: Anxious HENT: Yes: Atraumatic Neck: Yes: Supple Cardiovascular: Yes: Regular Rate and Rhythm Respiratory: Yes: Rhonchi Gastrointestinal: Yes: Normal Bowel Sounds Extremities: Yes: WNL Neurological: Yes: Alert, Oriented Labs: CBC, BMP 08/13/19 06:57 08/13/19 06:57 INR, PTT INR 1.13 (0.83-1.09) H 08/12/19 07:40 Problem List - Problems (1) Coffee ground emesis Assessment/Plan: on ivf, iv protonix gi evel noted Code(s): K92.0 - HEMATEMESIS (2) Diabetic gastroparesis Assessment/Plan: insulin bgms Code(s): 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
--- NOTE | 2019-08-13 15:27 | EKG ---
Test Reason : Blood Pressure : / mmHG Vent. Rate : 070 BPM Atrial Rate : 070 BPM P-R Int : 128 ms QRS Dur : 086 ms QT Int : 424 ms P-R-T Axes : 079 082 073 degrees QTc Int : 457 ms NORMAL SINUS RHYTHM WITH SINUS ARRHYTHMIA NORMAL ECG WHEN COMPARED WITH ECG OF 30-JUN-2019 15:29, NO SIGNIFICANT CHANGE WAS FOUND Confirmed by PATRICIA LUDWIG MD ([id number]) on 08/13/2019 3:27:30 PM Referred By: [facility] Confirmed By:PATRICIA LUDWIG MD
[2019-08-13] MEDS ORDERED: INSULIN (NOVOLOG) ASPART 100 UNITS/ML 10ML VIAL ONE ×2 (17:23→21:15)
[2019-08-13] MEDS: LACTATED RINGERS SOLUTION 1,000 ML/1,000 ML INFUS.BAG IV SCH (17:31)
[2019-08-13] MEDS: ONDANSETRON 4 MG/2 ML VIAL IVPUSH PRN (17:32)
[2019-08-13 18:11] LABS: COCAINE, UR NEGATIVE ng/ml (CUTOFF=300); METHADONE, UR NEGATIVE ng/ml (CUTOFF=300); OPIATES, URI NEGATIVE ng/ml (CUTOFF=300); PHENCYCLIDINE,URINE NEGATIVE ng/ml (CUTOFF=25)
[2019-08-13 18:13] LABS: URINE AMPHETAMINES NEGATIVE ng/ml (CUTOFF=500); URINE BARBITURATES NEGATIVE ng/ml (CUTOFF=200); URINE BENZODIAZEPINES NEGATIVE ng/ml (CUTOFF=200)
[2019-08-14] MEDS: ONDANSETRON 4 MG/2 ML VIAL IVPUSH PRN ×4 (01:42→21:41)
[2019-08-14] MEDS: INSULIN SLIDING SCALE (NOVOLOG) 1 VIAL SQ SCH ×4 (06:41→21:53)
[2019-08-14] MEDS: PANTOPRAZOLE SODIUM 40 MG VIAL IVPUSH SCH (09:26)
[2019-08-14] MEDS: LISINOPRIL 5 MG TABLET (FP) PO SCH (09:26)
[2019-08-14] MEDS ORDERED: INSULIN (NOVOLOG) ASPART 100 UNITS/ML 10ML VIAL ONE ×4 (11:41→21:32)
[2019-08-14] MEDS: LACTATED RINGERS SOLUTION 1,000 ML/1,000 ML INFUS.BAG IV SCH ×2 (11:47→15:28)
[2019-08-14] MEDS: SODIUM CHLORIDE 1,000 ML IV SCH (11:47)
--- NOTE | 2019-08-14 13:24 | PN ---
Progress Note, Physician History of Present Illness: pain much improved minimal in epigastric area vomit smal 1-2 times - Current Medication List Current Medications: Active Medications Lactated Ringer's (Lactated Ringers Solution) 1,000 ml in 1,000 mls @ 75 mls/hr IV ASDIR [facility] Last Admin: 08/13/19 17:31 Dose: 75 mls/hr Documented by: Insulin Aspart (Novolog Vial Sliding Scale -) 1 vial SQ ACHS [facility]; Protocol Last Admin: 08/14/19 11:46 Dose: 2 units Documented by: Lisinopril (Prinivil) 5 mg PO DAILY [facility] Last Admin: 08/14/19 09:26 Dose: 5 mg Documented by: Ondansetron HCl (Zofran Injection) 4 mg IVPUSH Q6H PRN PRN Reason: NAUSEA AND/OR VOMITING Last Admin: 08/14/19 08:31 Dose: 4 mg Documented by: Pantoprazole Sodium (Protonix Iv) 40 mg IVPUSH DAILY [facility] Last Admin: 08/14/19 09:26 Dose: 40 mg Documented by: - Objective Vital Signs: Vital Signs Temperature 98.7 F 08/14/19 09:00 Pulse Rate 82 08/14/19 09:00 Respiratory Rate 16 08/14/19 09:00 Blood Pressure 147/88 08/14/19 09:00 O2 Sat by Pulse Oximetry (%) 93 L 08/14/19 08:48 Constitutional: Yes: No Distress HENT: Yes: Atraumatic Neck: Yes: Supple Cardiovascular: Yes: Regular Rate and Rhythm Respiratory: Yes: CTA Bilaterally Gastrointestinal: Yes: Normal Bowel Sounds, Tenderness (mild in epigastric area) Extremities: Yes: WNL Edema: No Neurological: Yes: Alert, Oriented Labs: CBC, BMP 08/13/19 06:57 08/13/19 06:57 INR, PTT INR 1.13 (0.83-1.09) H 08/12/19 07:40 Problem List - Problems (1) Coffee ground emesis Assessment/Plan: on ivf, iv protonix clear liquid diet Code(s): K92.0 - HEMATEMESIS (2) Diabetic gastroparesis Assessment/Plan: insulin bgms Code(s): 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 id eval pending will fu wbc count Code(s): D72.829 - ELEVATED WHITE BLOOD CELL COUNT, UNSPECIFIED
[2019-08-14] MEDS ORDERED: METOCLOPRAMIDE HCL INJECTION 10 MG/2 ML VIAL IVPUSH SCH (14:00)
--- NOTE | 2019-08-14 14:39 | PN ---
Progress Note (short form) - Note Progress Note: Gastroenterology note: Pt with coffee ground emesis yesterday, complains of mild abd pain with nausea. He had ice chips and medicaiton this am, otherwise npo. Vomited the medications today but not coffee ground in color. Vital Signs Period Temp Pulse Resp BP Sys/Quiñonez Pulse Ox Last 24 Hr 97.9 F-99.7 F 70-83 16-18 142-169/80-96 93-99 GEN: A&0x3, NAD ABD: soft, non-distended, mild epigastric pain. No guarding. CBC, BMP 08/13/19 06:57 08/13/19 06:57 CT scan:mild concentric thickening of the ascending colon <Rody Shell - Last Filed: 08/14/19 15:12> - Note Progress Note: PATIENT WAS SEEN AND EXAMINED AGREE WITH ASSESSMENT AND PLAN OUTLINED ABOVE. <Irina Gagnon - Last Filed: 08/16/19 08:17> Problem List - Problems (1) Diabetic gastroparesis Assessment/Plan: Pt with further emesis yeaterday, recommend to continue npo. EKG with borderline QT interval, awaiting Cardiology review of EKG prior to dose of erythromyocin. 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 Recommend to begin IV abx Levaquin/flagyl. CBC/BMP ordered for repeat evaluation today. Trend daily. Pt with mild epigastric tenderness otherwise abd non-tender D/w Dr. 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
--- NOTE | 2019-08-14 14:45 | CON.ID ---
Consult - History of Present Illness History of Present Illness: 38 y.o. male with PMH of DM, HTN, gastritis, gastroparesis, and benign colon polyps presented with c/o epigastric pain/n/vomiting x 1 day. Pt states that he had brown/coffee ground vomitus similar to previous episodes for which he had endoscopy 4 months ago without evidence of active bleeding. He denies any diarrhea/lower abd pain/fever or chills. In the ER noted to have mild leukocytosis and impaired renal function but afebrile. Evaluated by GI and symptoms attributed to severe gastroparesis with UGIB. Pt states his DM has been relatively well controlled with HgbAIC of 6.0 three months ago but glucose on admission was 290. Today he was noted to have an increase in wbc, with mild temp elevation to 99.7F. Abd CT reveals colitis in ascending colon. Pt denies lower abd pain/diarrhea/dark or bloody BMs. Still reports vomiting episodes of clear/greenish fluid and sharp epigastric pain (6/10 intensity). Currently afebrile. No other specific complaints. - History Source History Provided By: Patient - Past Medical History Cardio/Vascular: Yes: HTN Pulmonary: Yes: Asthma (last used inhaler 1 week ago) Gastrointestinal: Yes: Gastritis (for 10-11 years, GI doctor at [facility] last EGD 3 to 4 months ago, as well as colonscopy(different times)), Other (gastroparesis) Hepatobiliary: Yes: Other (no history of HIV). No: Hepatitis A, Hepatitis B, Hepatitis C Infectious Disease: No: HIV Endocrine: Yes: Diabetes Mellitus - Past Surgical History Past Surgical History: Yes: Tonsillectomy - Alcohol/Substance Use Hx Alcohol Use: No History of Substance Use: reports: None - Smoking History Smoking history: Never smoked Have you smoked in the past 12 months: No If you are a former smoker, when did you quit?: 3 years - Social History ADL: Independent Home Medications - Allergies Allergies/Adverse Reactions: Allergies Allergy/AdvReac Type Severity Reaction Status Date / Time Penicillins AdvReac Verified 06/30/19 15:00 - Home Medications Home Medications: Ambulatory Orders Lisinopril 5 mg PO DAILY 01/27/18 Simvastatin 20 mg PO HS 01/28/18 Albuterol Sulfate [Albuterol Sulfate Hfa] 8.5 gm IH Q6H PRN 06/30/19 Cholecalciferol (Vitamin D3) [Vitamin D3 -] 50,000 unit PO WEEKLY 06/30/19 Metoclopramide HCl [Reglan] 5 mg PO Q12H #14 tablet 07/02/19 Pantoprazole Sodium [Protonix] 40 mg PO DAILY #30 tablet. 07/02/19 Insulin Glargine,Hum.rec.anlog [Basaglar Kwikpen U-100] 20 unit SQ HS 08/12/19 Review of Systems - Review of Systems Constitutional: reports: No Symptoms Eyes: reports: No Symptoms HENT: reports: No Symptoms Neck: reports: No Symptoms Cardiovascular: reports: No Symptoms Respiratory: reports: No Symptoms Gastrointestinal: reports: Abdominal Pain, Nausea, Vomiting Genitourinary: reports: No Symptoms Musculoskeletal: reports: No Symptoms Integumentary: reports: No Symptoms Neurological: reports: No Symptoms Endocrine: reports: No Symptoms Hematology/Lymphatic: reports: No Symptoms Psychiatric: reports: No Symptoms Pain Intensity: 6 Physical Exam Vital Signs: Vital Signs Temperature 97.9 F 08/14/19 13:00 Pulse Rate 70 08/14/19 13:00 Respiratory Rate 18 08/14/19 13:00 Blood Pressure 169/96 08/14/19 13:00 O2 Sat by Pulse Oximetry (%) 93 L 08/14/19 08:48 Constitutional: Yes: No Distress, Calm Eyes: Yes: Conjunctiva Clear Cardiovascular: Yes: Regular Rate and Rhythm Respiratory: Yes: CTA Bilaterally Gastrointestinal: Yes: Normal Bowel Sounds, Soft, Tenderness (epigastric), Vomiting Renal/: Yes: WNL Extremities: Yes: WNL Integumentary: Yes: WNL Neurological: Yes: Alert, Oriented Labs: CBC, BMP 08/13/19 06:57 08/13/19 06:57 Laboratory Tests 08/12/19 08/12/19 08/12/19 07:40 07:40 07:40 WBC 13.3 H RBC 4.74 Hgb 14.9 Hct 45.4 MCV 95.7 MCH 31.5 MCHC 32.9 RDW 14.4 Plt Count 285 MPV 9.2 D Absolute Neuts (auto) 11.5 H Neutrophils % 86.6 H Lymphocytes % 7.7 L D Monocytes % 5.6 Eosinophils % 0.0 Basophils % 0.1 Nucleated RBC % 0 PT with INR 13.30 H INR 1.13 H Sodium 136 Potassium 4.0 Chloride 100 Carbon Dioxide 23 Anion Gap 13 BUN 25.7 H Creatinine 1.5 H Est GFR (CKD-EPI)AfAm 67.95 Est GFR (CKD-EPI)NonAf 58.63 POC Glucometer Random Glucose 291 H Calcium 9.6 Total Bilirubin 1.2 H Direct Bilirubin AST 18 ALT 32 Alkaline Phosphatase 87 Total Protein 7.9 Albumin 4.4 Lipase 32 L Opiates Screen Methadone Screen Barbiturate Screen Phencyclidine Screen Ur Amphetamines Screen MDMA (Ecstasy) Screen Benzodiazepines Screen Cocaine Screen U Marijuana (THC) Screen COVID-19 ([facility]) Blood Type Antibody Screen 08/12/19 08/12/19 08/12/19 07:40 09:04 09:08 WBC RBC Hgb Hct MCV MCH MCHC RDW Plt Count MPV Absolute Neuts (auto) Neutrophils % Lymphocytes % Monocytes % Eosinophils % Basophils % Nucleated RBC % PT with INR INR Sodium Potassium Chloride Carbon Dioxide Anion Gap BUN Creatinine Est GFR (CKD-EPI)AfAm Est GFR (CKD-EPI)NonAf POC Glucometer 292 Random Glucose Calcium Total Bilirubin Direct Bilirubin AST ALT Alkaline Phosphatase Total Protein Albumin Lipase Opiates Screen Methadone Screen Barbiturate Screen Phencyclidine Screen Ur Amphetamines Screen MDMA (Ecstasy) Screen Benzodiazepines Screen Cocaine Screen U Marijuana (THC) Screen COVID-19 ([facility]) Not detected Blood Type O POSITIVE Antibody Screen Negative 08/12/19 08/12/19 08/12/19 14:00 16:37 22:24 WBC 12.8 H RBC 4.25 Hgb 13.5 Hct 40.2 MCV 94.6 MCH 31.8 MCHC 33.6 RDW 13.8 Plt Count 260 MPV 8.9 Absolute Neuts (auto) 10.5 H Neutrophils % 81.6 Lymphocytes % 8.7 Monocytes % 9.5 Eosinophils % 0.0 Basophils % 0.2 Nucleated RBC % 0 PT with INR INR Sodium Potassium Chloride Carbon Dioxide Anion Gap BUN Creatinine Est GFR (CKD-EPI)AfAm Est GFR (CKD-EPI)NonAf POC Glucometer 216 215 Random Glucose Calcium Total Bilirubin Direct Bilirubin AST ALT Alkaline Phosphatase Total Protein Albumin Lipase Opiates Screen Methadone Screen Barbiturate Screen Phencyclidine Screen Ur Amphetamines Screen MDMA (Ecstasy) Screen Benzodiazepines Screen Cocaine Screen U Marijuana (THC) Screen COVID-19 ([facility]) Blood Type Antibody Screen 08/13/19 08/13/19 08/13/19 06:38 06:57 06:57 WBC 14.8 H RBC 4.50 Hgb 14.4 Hct 43.3 MCV 96.1 H MCH 31.9 MCHC 33.2 RDW 14.1 Plt Count 229 MPV 9.2 Absolute Neuts (auto) 11.6 H Neutrophils % 78.6 Lymphocytes % 10.3 Monocytes % 10.6 H Eosinophils % 0.1 D Basophils % 0.4 Nucleated RBC % 0 PT with INR INR Sodium 138 Potassium 4.0 Chloride 105 Carbon Dioxide 25 Anion Gap 9 BUN 19.4 H Creatinine 1.1 Est GFR (CKD-EPI)AfAm 98.87 Est GFR (CKD-EPI)NonAf 85.31 POC Glucometer 219 Random Glucose 180 H Calcium 8.7 Total Bilirubin 1.1 H Direct Bilirubin 0.2 AST 24 ALT 25 Alkaline Phosphatase 72 Total Protein 6.7 Albumin 3.7 Lipase Opiates Screen Methadone Screen Barbiturate Screen Phencyclidine Screen Ur Amphetamines Screen MDMA (Ecstasy) Screen Benzodiazepines Screen Cocaine Screen U Marijuana (THC) Screen COVID-19 ([facility]) Blood Type Antibody Screen 08/13/19 08/13/19 08/13/19 06:57 11:13 17:15 WBC RBC Hgb Hct MCV MCH MCHC RDW Plt Count MPV Absolute Neuts (auto) Neutrophils % Lymphocytes % Monocytes % Eosinophils % Basophils % Nucleated RBC % PT with INR INR Sodium Potassium Chloride Carbon Dioxide Anion Gap BUN Creatinine Est GFR (CKD-EPI)AfAm Est GFR (CKD-EPI)NonAf POC Glucometer 89 Random Glucose Calcium Total Bilirubin Direct Bilirubin 0.2 AST ALT Alkaline Phosphatase Total Protein Albumin Lipase Opiates Screen Negative Methadone Screen Negative Barbiturate Screen Negative Phencyclidine Screen Negative Ur Amphetamines Screen Negative MDMA (Ecstasy) Screen Negative Benzodiazepines Screen Negative Cocaine Screen Negative U Marijuana (THC) Screen Positive A* COVID-19 ([facility]) Blood Type Antibody Screen 08/13/19 08/13/19 08/14/19 17:19 21:34 06:33 WBC RBC Hgb Hct MCV MCH MCHC RDW Plt Count MPV Absolute Neuts (auto) Neutrophils % Lymphocytes % Monocytes % Eosinophils % Basophils % Nucleated RBC % PT with INR INR Sodium Potassium Chloride Carbon Dioxide Anion Gap BUN Creatinine Est GFR (CKD-EPI)AfAm Est GFR (CKD-EPI)NonAf POC Glucometer 137 87 150 Random Glucose Calcium Total Bilirubin Direct Bilirubin AST ALT Alkaline Phosphatase Total Protein Albumin Lipase Opiates Screen Methadone Screen Barbiturate Screen Phencyclidine Screen Ur Amphetamines Screen MDMA (Ecstasy) Screen Benzodiazepines Screen Cocaine Screen U Marijuana (THC) Screen COVID-19 ([facility]) Blood Type Antibody Screen 08/14/19 11:17 WBC RBC Hgb Hct MCV MCH MCHC RDW Plt Count MPV Absolute Neuts (auto) Neutrophils % Lymphocytes % Monocytes % Eosinophils % Basophils % Nucleated RBC % PT with INR INR Sodium Potassium Chloride Carbon Dioxide Anion Gap BUN Creatinine Est GFR (CKD-EPI)AfAm Est GFR (CKD-EPI)NonAf POC Glucometer 136 Random Glucose Calcium Total Bilirubin Direct Bilirubin AST ALT Alkaline Phosphatase Total Protein Albumin Lipase Opiates Screen Methadone Screen Barbiturate Screen Phencyclidine Screen Ur Amphetamines Screen MDMA (Ecstasy) Screen Benzodiazepines Screen Cocaine Screen U Marijuana (THC) Screen COVID-19 ([facility]) Blood Type Antibody Screen Imaging - Results X-ray: Report Reviewed Cat Scan: Report Reviewed Assessment/Plan Leukocytosis UGIB Gastroparesis ? Acute colitis Gastritis IDDM HTN -- wbc increased after improvement but pt still with epigastric pain/vomiting episodes. Leukocytosis possibly due to UGIB. -- Abd CT suggestive of Colitis but pt without Lower abd pain/diarrhea -- repeat cbc to monitor wbc trend off of antibiotics for now, monitor temps. If no improvement or upward trend will start empiric antibiotics. -- GI following -- renal function improved -- Covid screening - negative Will follow up Thank you
--- NOTE | 2019-08-14 15:31 | CON.CARD ---
Consult Consult Specialty:: Cardiology Referred by:: Dr. Farias Reason for Consultation:: Cardiac evaluation - History of Present Illness Chief Complaint: Admitted with abdominal pain, nausea, vomiting History of Present Illness: Patient is a 38 year old male with history of DM and HTN who presented with diffuse abdominal pain with nausea and vomiting. It was reported as coffee ground emesis. He denies chest pain, shortness of breath or palpitations. He denies paroxysmal nocturnal dyspnea or orthopnea. He denies fever or chills. He denies headache or lightheadedness. He complains of nausea and vomiting. - History Source History Provided By: Patient, Medical Record Limitations to Obtaining History: No Limitations - Past Medical History Cardio/Vascular: Yes: HTN Pulmonary: Yes: Asthma (last used inhaler 1 week ago) Gastrointestinal: Yes: Gastritis (for 10-11 years, GI doctor at [facility] last EGD 3 to 4 months ago, as well as colonscopy(different times)), Other (ga stroparesis) Endocrine: Yes: Diabetes Mellitus - Past Surgical History Past Surgical History: Yes: Tonsillectomy - Alcohol/Substance Use Hx Alcohol Use: No History of Substance Use: reports: None - Smoking History Smoking history: Never smoked Have you smoked in the past 12 months: No If you are a former smoker, when did you quit?: 3 years - Social History ADL: Independent Home Medications - Allergies Allergies/Adverse Reactions: Allergies Allergy/AdvReac Type Severity Reaction Status Date / Time Penicillins AdvReac Verified 06/30/19 15:00 - Home Medications Home Medications: Ambulatory Orders Lisinopril 5 mg PO DAILY 01/27/18 Simvastatin 20 mg PO HS 01/28/18 Albuterol Sulfate [Albuterol Sulfate Hfa] 8.5 gm IH Q6H PRN 06/30/19 Cholecalciferol (Vitamin D3) [Vitamin D3 -] 50,000 unit PO WEEKLY 06/30/19 Metoclopramide HCl [Reglan] 5 mg PO Q12H #14 tablet 07/02/19 Pantoprazole Sodium [Protonix] 40 mg PO DAILY #30 tablet. 07/02/19 Insulin Glargine,Hum.rec.anlog [Bipinaglloan Vance U-100] 20 unit SQ HS 08/12/19 Family Medical History Other Family History: DM Review of Systems - Review of Systems Constitutional: denies: Chills, Fever Cardiovascular: denies: Chest Pain, Palpitations, Shortness of Breath Respiratory: denies: Cough, Hemoptysis, Orthopnea, PND, SOB, SOB on Exertion Gastrointestinal: reports: Abdominal Pain, Vomiting. denies: Constipation, Diarrhea, Melena, Nausea, Rectal Bleeding Neurological: denies: Dizziness, Headache, Seizure, Syncope Vital Signs: Vital Signs Temperature 97.9 F 08/14/19 13:00 Pulse Rate 70 08/14/19 13:00 Respiratory Rate 18 08/14/19 13:00 Blood Pressure 169/96 08/14/19 13:00 O2 Sat by Pulse Oximetry (%) 93 L 08/14/19 08:48 Eyes: Yes: PERRL HENT: Yes: Atraumatic Neck: Yes: Supple Respiratory: Yes: CTA Bilaterally Gastrointestinal: Yes: Normal Bowel Sounds, Soft. No: Tenderness JVD: No Carotid Bruit: No PMI: Non-Displaced Heart Sounds: Yes: S1, S2. No: Gallop Murmur: No: Systolic Murmur, Diastolic Murmur Edema: No - Other Data Labs, Other Data: CBC, BMP 08/13/19 06:57 08/13/19 06:57 INR, PTT INR 1.13 (0.83-1.09) H 08/12/19 07:40 Laboratory Results - last 24 hr 08/13/19 08/13/19 08/13/19 17:15 17:19 21:34 POC Glucometer 137 87 Opiates Screen Negative Methadone Screen Negative Barbiturate Screen Negative Phencyclidine Screen Negative Ur Amphetamines Screen Negative MDMA (Ecstasy) Screen Negative Benzodiazepines Screen Negative Cocaine Screen Negative U Marijuana (THC) Screen Positive A* 08/14/19 08/14/19 06:33 11:17 POC Glucometer 150 136 Opiates Screen Methadone Screen Barbiturate Screen Phencyclidine Screen Ur Amphetamines Screen MDMA (Ecstasy) Screen Benzodiazepines Screen Cocaine Screen U Marijuana (THC) Screen Normal sinus rhythm, normal ECG QTc 457 ms Imaging - Results Chest X-ray: Report Reviewed (Unremarkable) X-ray: Report Reviewed (AXR unremarkable) Cat Scan: Report Reviewed (Abd CT: thickened ascending colon) EKG: Report Reviewed Problem List - Problems (1) HTN (hypertension) Code(s): I10 - ESSENTIAL (PRIMARY) HYPERTENSION (2) Hypercholesterolemia Code(s): E78.00 - PURE HYPERCHOLESTEROLEMIA, UNSPECIFIED (3) Coffee ground emesis Code(s): K92.0 - HEMATEMESIS (4) Diabetic gastroparesis Code(s): 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; K31.84 - GASTROPARESIS (5) Colitis Code(s): K52.9 - NONINFECTIVE GASTROENTERITIS AND COLITIS, UNSPECIFIED Assessment/Plan 1. HTN 2. DM 3. Hypercholesterolemia 4. Clinical presentation suggests colitis 5. Leukocytosis due to above PLAN: 1. May give Erythromycin and monitor QTc 2. Increase Lisinopril to 10 mg QD and monitor BP 3. Statin may be held while getting Erythromycin 4. Fluid resuscitation and monitor renal function and electrolytes 5. GI input noted 6. Echocardiography to assess LV/RV and valvular function when feasible Further plans are to follow Sanjeev Lawson MD
[2019-08-14] MEDS: METOCLOPRAMIDE HCL INJECTION 10 MG/2 ML VIAL IVPUSH PRN (16:39)
[2019-08-14] MEDS ORDERED: LISINOPRIL 10 MG TABLET (FP) PO SCH (18:28)
[2019-08-14 20:19] LABS: BASO % 0.8 % (0-2.0); HEMATOCRIT 43.2 % (35.4-49); HEMOGLOBIN 14.6 GM/dL (11.7-16.9); LYMPH % 14.8 % (8-40); MCH 32.1 pg (25.7-33.7); MCHC 33.7 g/dl (32.0-35.9); MEAN CELL VOLUME 95.3 fl (80-96); MEAN PLT VOLUME 8.7 fl (7.5-11.1); MONO % 11.9 % (3.8-10.2); NEUT % 72.5 % (42.8-82.8); PLATELET COUNT 258 K/MM3 (134-434); RBC 4.53 M/mm3 (4.00-5.60); RDW 13.5 % (11.9-15.9); WHITE BLOOD COUNT 10.6 K/mm3 (4.0-10.0)
[2019-08-14 20:49] LABS: BLOOD UREA NITROGEN 19.6 mg/dL (7-18); CALCIUM 8.7 mg/dL (8.5-10.1); CREATININE 1.3 mg/dL (0.55-1.3); POTASSIUM 3.7 mmol/L (3.5-5.1)
[2019-08-15] MEDS: METOCLOPRAMIDE HCL INJECTION 10 MG/2 ML VIAL IVPUSH PRN ×2 (02:21→16:42)
[2019-08-15] MEDS: INSULIN SLIDING SCALE (NOVOLOG) 1 VIAL SQ SCH ×4 (06:10→21:19)
--- NOTE | 2019-08-15 09:10 | PN.GI ---
GI Progress Note Subjective: STATES HE IS FEELING BETTER TOLERATED CLEAR LIQUID DIET ; STATES HIS PAIN IS IN THE EPIGASTRIUM AND IS NOW IMPROVING. NO NAUSEA / VOMITING OVERNIGHT - Objective Vital Signs: Vital Signs Temperature 98.6 F 08/15/19 05:12 Pulse Rate 68 08/15/19 05:12 Respiratory Rate 18 08/15/19 05:12 Blood Pressure 157/87 08/15/19 05:12 O2 Sat by Pulse Oximetry (%) 96 08/14/19 21:00 Constitutional: Well Nourished, No Distress, Calm Eyes: Yes: WNL Cardiovascular: Yes: WNL, Regular Rate and Rhythm Respiratory: Yes: WNL, Regular, CTA Bilaterally Gastrointestinal Inspection: Yes: WNL ...Auscultate: Yes: Normoactive Bowel Sounds Extremities: Yes: WNL Edema: No Labs: CBC, BMP 08/14/19 20:05 08/14/19 20:05 INR, PTT INR 1.13 (0.83-1.09) H 08/12/19 07:40 Problem List - Problems (1) Nausea & vomiting Assessment/Plan: CLEAR LIQUID DIET CAN BE ADVANCED TO A FULL LIQUI DIET TOMORROW IF CONTINUES TO IMPROVE. APPEARS TO BE REPOSNDING TO REGLAN THERAPY THEREFORE WOULD CONTINUE THE THERAPY DOUBT ACTIVE COLITIS - CT SCAN WAS WITHOUT CONTRAST AND NOT SPECIFIC. DEFER ABX TO ID AVOID NARCOTICS MONITOR H/H QD - NO SIGN OF GI BLEED. Code(s): R11.2 - NAUSEA WITH VOMITING, UNSPECIFIED (2) Coffee ground emesis Code(s): K92.0 - HEMATEMESIS (3) Diabetic gastroparesis Code(s): 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; K31.84 - GASTROPARESIS
[2019-08-15] MEDS: PANTOPRAZOLE SODIUM 40 MG VIAL IVPUSH SCH (10:40)
--- NOTE | 2019-08-15 14:23 | PN ---
Progress Note, Physician Chief Complaint: No new events overnight History of Present Illness: Patient was seen and examined. Awake and alert. Chart was reviewed Denies chest pain, SOB or palpitations - Current Medication List Current Medications: Active Medications Lactated Ringer's (Lactated Ringers Solution) 1,000 ml in 1,000 mls @ 75 mls/hr IV ASDIR [facility] Last Admin: 08/14/19 15:28 Dose: 75 mls/hr Documented by: Insulin Aspart (Novolog Vial Sliding Scale -) 1 vial SQ ACHS [facility]; Protocol Last Admin: 08/15/19 11:38 Dose: 4 units Documented by: Lisinopril (Prinivil) 10 mg PO DAILY [facility] Last Admin: 08/15/19 10:40 Dose: 10 mg Documented by: Metoclopramide HCl (Reglan Injection -) 10 mg IVPUSH Q6H PRN PRN Reason: NAUSEA AND/OR VOMITING Last Admin: 08/15/19 02:21 Dose: 10 mg Documented by: Ondansetron HCl (Zofran Injection) 4 mg IVPUSH Q6H PRN PRN Reason: NAUSEA AND/OR VOMITING Last Admin: 08/14/19 21:41 Dose: 4 mg Documented by: Pantoprazole Sodium (Protonix Iv) 40 mg IVPUSH DAILY [facility] Last Admin: 08/15/19 10:40 Dose: 40 mg Documented by: - Objective Vital Signs: Vital Signs Temperature 98.3 F 08/15/19 13:38 Pulse Rate 64 08/15/19 13:38 Respiratory Rate 18 08/15/19 13:38 Blood Pressure 142/92 08/15/19 13:38 O2 Sat by Pulse Oximetry (%) 96 08/15/19 09:00 Neck: Yes: Supple Cardiovascular: Yes: Regular Rate and Rhythm, S1, S2 Respiratory: Yes: CTA Bilaterally Gastrointestinal: Yes: Normal Bowel Sounds, Soft. No: Tenderness Edema: No Additional Findings/Remarks: - Review of Systems Constitutional: denies: Chills, Fever Cardiovascular: denies: Chest Pain, Palpitations, Shortness of Breath Respiratory: denies: Cough, Hemoptysis, Orthopnea, PND, SOB, SOB on Exertion Gastrointestinal: reports: Abdominal Pain, Vomiting. denies: Constipation, Diarrhea, Melena, Nausea, Rectal Bleeding Neurological: denies: Dizziness, Headache, Seizure, Syncope Labs: CBC, BMP 08/14/19 20:05 08/14/19 20:05 Problem List - Problems (1) HTN (hypertension) Code(s): I10 - ESSENTIAL (PRIMARY) HYPERTENSION (2) Hypercholesterolemia Code(s): E78.00 - PURE HYPERCHOLESTEROLEMIA, UNSPECIFIED (3) Coffee ground emesis Code(s): K92.0 - HEMATEMESIS (4) Diabetic gastroparesis Code(s): 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; K31.84 - GASTROPARESIS (5) Colitis Code(s): K52.9 - NONINFECTIVE GASTROENTERITIS AND COLITIS, UNSPECIFIED Assessment/Plan 1. HTN 2. DM 3. Hypercholesterolemia 4. Clinical presentation suggests colitis 5. Leukocytosis due to above PLAN: 1. May give Erythromycin if needed and monitor QTc 2. Increase Lisinopril to 20 mg QD and monitor BP 3. Statin may be held while receiving Erythromycin 4. Fluid resuscitation and monitor renal function and electrolytes 5. GI input to follow 6. Echocardiography to assess LV/RV and valvular function when feasible Further plans are to follow Sanjeev Lawson MD
[2019-08-15] MEDS ORDERED: LISINOPRIL 20 MG TABLET (FP) PO SCH (14:24)
[2019-08-15] MEDS: LACTATED RINGERS SOLUTION 1,000 ML/1,000 ML INFUS.BAG IV SCH (16:20)
--- NOTE | 2019-08-15 16:33 | PN ---
Progress Note, Physician History of Present Illness: tolerated clear liquid diet no movitting no pain in belly passing gas - Current Medication List Current Medications: Active Medications Lactated Ringer's (Lactated Ringers Solution) 1,000 ml in 1,000 mls @ 75 mls/hr IV ASDIR [facility] Last Admin: 08/15/19 16:20 Dose: 75 mls/hr Documented by: Insulin Aspart (Novolog Vial Sliding Scale -) 1 vial SQ ACHS [facility]; Protocol Last Admin: 08/15/19 11:38 Dose: 4 units Documented by: Lisinopril (Prinivil) 20 mg PO DAILY [facility] Metoclopramide HCl (Reglan Injection -) 10 mg IVPUSH Q6H PRN PRN Reason: NAUSEA AND/OR VOMITING Last Admin: 08/15/19 02:21 Dose: 10 mg Documented by: Ondansetron HCl (Zofran Injection) 4 mg IVPUSH Q6H PRN PRN Reason: NAUSEA AND/OR VOMITING Last Admin: 08/14/19 21:41 Dose: 4 mg Documented by: Pantoprazole Sodium (Protonix Iv) 40 mg IVPUSH DAILY [facility] Last Admin: 08/15/19 10:40 Dose: 40 mg Documented by: - Objective Vital Signs: Vital Signs Temperature 98.3 F 08/15/19 13:38 Pulse Rate 64 08/15/19 13:38 Respiratory Rate 18 08/15/19 13:38 Blood Pressure 142/92 08/15/19 13:38 O2 Sat by Pulse Oximetry (%) 96 08/15/19 09:00 Constitutional: Yes: No Distress HENT: Yes: Atraumatic Neck: Yes: Supple Cardiovascular: Yes: Regular Rate and Rhythm Respiratory: Yes: CTA Bilaterally Gastrointestinal: Yes: Normal Bowel Sounds Extremities: Yes: WNL Neurological: Yes: Alert, Oriented Labs: CBC, BMP 08/14/19 20:05 08/14/19 20:05 INR, PTT INR 1.13 (0.83-1.09) H 08/12/19 07:40 Problem List - Problems (1) Coffee ground emesis Assessment/Plan: advance diet to regular dc ivf continue other meds Code(s): K92.0 - HEMATEMESIS (2) Diabetic gastroparesis Assessment/Plan: insulin bgms Code(s): 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; K31.84 - GASTROPARESIS (3) Upper GI bleed Code(s): K92.2 - GASTROINTESTINAL HEMORRHAGE, UNSPECIFIED (4) Elevated WBC count Assessment/Plan: wbc count improving will fu Code(s): D72.829 - ELEVATED WHITE BLOOD CELL COUNT, UNSPECIFIED (5) HTN (hypertension) Assessment/Plan: on meds monitor Code(s): I10 - ESSENTIAL (PRIMARY) HYPERTENSION (6) Nausea & vomiting Assessment/Plan: resolved Code(s): R11.2 - NAUSEA WITH VOMITING, UNSPECIFIED
--- NOTE | 2019-08-15 18:16 | PN ---
Progress Note, Physician History of Present Illness: Pt is feeling a bit better. Tolerating liquid diet, less epigastric pain and no n/v today. wbc trended down, afebrile. - Current Medication List Current Medications: Active Medications Insulin Aspart (Novolog Vial Sliding Scale -) 1 vial SQ ACHS [facility]; Protocol Last Admin: 08/15/19 16:42 Dose: 4 units Documented by: Lisinopril (Prinivil) 20 mg PO DAILY [facility] Metoclopramide HCl (Reglan Injection -) 10 mg IVPUSH Q6H PRN PRN Reason: NAUSEA AND/OR VOMITING Last Admin: 08/15/19 16:42 Dose: 10 mg Documented by: Ondansetron HCl (Zofran Injection) 4 mg IVPUSH Q6H PRN PRN Reason: NAUSEA AND/OR VOMITING Last Admin: 08/14/19 21:41 Dose: 4 mg Documented by: Pantoprazole Sodium (Protonix Iv) 40 mg IVPUSH DAILY [facility] Last Admin: 08/15/19 10:40 Dose: 40 mg Documented by: - Objective Vital Signs: Vital Signs Temperature 98.3 F 08/15/19 13:38 Pulse Rate 64 08/15/19 13:38 Respiratory Rate 18 08/15/19 13:38 Blood Pressure 142/92 08/15/19 13:38 O2 Sat by Pulse Oximetry (%) 96 08/15/19 09:00 Constitutional: Yes: No Distress, Calm Cardiovascular: Yes: Regular Rate and Rhythm Respiratory: Yes: Regular Gastrointestinal: Yes: Normal Bowel Sounds, Soft Genitourinary: Yes: WNL Neurological: Yes: Alert Labs: CBC, BMP 08/14/19 20:05 08/14/19 20:05 INR, PTT INR 1.13 (0.83-1.09) H 08/12/19 07:40 Problem List - Problems (1) Coffee ground emesis Code(s): K92.0 - HEMATEMESIS (2) Diabetic gastroparesis Code(s): 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; K31.84 - GASTROPARESIS (3) Elevated WBC count Code(s): D72.829 - ELEVATED WHITE BLOOD CELL COUNT, UNSPECIFIED (4) HTN (hypertension) Code(s): I10 - ESSENTIAL (PRIMARY) HYPERTENSION (5) Hypercholesterolemia Code(s): E78.00 - PURE HYPERCHOLESTEROLEMIA, UNSPECIFIED (6) Nausea & vomiting Code(s): R11.2 - NAUSEA WITH VOMITING, UNSPECIFIED (7) Upper GI bleed Code(s): K92.2 - GASTROINTESTINAL HEMORRHAGE, UNSPECIFIED Assessment/Plan Leukocytosis UGIB Gastroparesis ? Acute colitis - asymptomatic Gastritis IDDM HTN -- wbc trended down to normal, vomiting appears to have resolved, tolerating liquid diet -- no symptoms of colitis at this time, suggest hold off antibiotic treatment -- GI following -- renal function improved -- Covid screening - negative
[2019-08-15] MEDS: ONDANSETRON 4 MG/2 ML VIAL IVPUSH PRN (21:18)
[2019-08-16] MEDS: INSULIN SLIDING SCALE (NOVOLOG) 1 VIAL SQ SCH ×2 (06:59→11:12)
--- NOTE | 2019-08-16 08:20 | PN.GI ---
GI Progress Note Subjective: FEELING BETTER - Objective Vital Signs: Vital Signs Temperature 99.7 F H 08/16/19 05:17 Pulse Rate 68 08/16/19 05:17 Respiratory Rate 18 08/16/19 05:17 Blood Pressure 150/80 08/16/19 05:17 O2 Sat by Pulse Oximetry (%) 96 08/15/19 21:00 Constitutional: Well Nourished, No Distress, Calm Eyes: Yes: WNL HENT: Yes: WNL Neck: Yes: WNL Cardiovascular: Yes: WNL, Regular Rate and Rhythm Respiratory: Yes: WNL, Regular, CTA Bilaterally Gastrointestinal Inspection: Yes: WNL ...Auscultate: Yes: Normoactive Bowel Sounds Edema: No Labs: CBC, BMP 08/14/19 20:05 08/14/19 20:05 INR, PTT INR 1.13 (0.83-1.09) H 08/12/19 07:40 Problem List - Problems (1) Nausea & vomiting Assessment/Plan: LOW RESIDUE LACTOSE FREE DIET C/W REGLAN TIDAC MONITOR H/H QD WHILE HOSPITALIZED PPI THERAPY Code(s): R11.2 - NAUSEA WITH VOMITING, UNSPECIFIED (2) Coffee ground emesis Code(s): K92.0 - HEMATEMESIS (3) Diabetic gastroparesis Code(s): 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; K31.84 - GASTROPARESIS
[2019-08-16 09:10] VITALS: BP 128/85; PULSE 82; TEMP 98.2
[2019-08-16 09:38] LABS: BASO % 0.4 % (0-2.0); EOS % 1.4 % (0-4.5); HEMATOCRIT 41.8 % (35.4-49); HEMOGLOBIN 14.3 GM/dL (11.7-16.9); LYMPH % 33.6 % (8-40); MCH 32.4 pg (25.7-33.7); MCHC 34.3 g/dl (32.0-35.9); MEAN CELL VOLUME 94.4 fl (80-96); MEAN PLT VOLUME 8.5 fl (7.5-11.1); NEUT % 48.6 % (42.8-82.8); PLATELET COUNT 250 K/MM3 (134-434); RBC 4.42 M/mm3 (4.00-5.60); RDW 13.3 % (11.9-15.9); WHITE BLOOD COUNT 9.5 K/mm3 (4.0-10.0)
[2019-08-16] MEDS: PANTOPRAZOLE SODIUM 40 MG VIAL IVPUSH SCH (09:44)
--- NOTE | 2019-08-17 17:16 | DS ---
Physical Examination Vital Signs: Vital Signs Temperature 98.2 F 08/16/19 09:09 Pulse Rate 82 08/16/19 09:09 Respiratory Rate 18 08/16/19 09:09 Blood Pressure 128/85 08/16/19 09:09 O2 Sat by Pulse Oximetry (%) 98 08/16/19 09:00 Constitutional: Yes: No Distress HENT: Yes: Atraumatic Neck: Yes: Supple Cardiovascular: Yes: Regular Rate and Rhythm Respiratory: Yes: CTA Bilaterally Gastrointestinal: Yes: Normal Bowel Sounds Extremities: Yes: WNL Neurological: Yes: Alert, Oriented Labs: CBC, BMP 08/16/19 09:05 08/14/19 20:05 Discharge Summary Problems reviewed: Yes Reason For Visit: UPPER GASTROINTESTINAL HEMORRHAGE Condition: Improved - Instructions Disposition: HOME - Home Medications Comprehensive Discharge Medication List: Ambulatory Orders Simvastatin 20 mg PO HS 01/28/18 Albuterol Sulfate [Albuterol Sulfate Hfa] 8.5 gm IH Q6H PRN 06/30/19 Cholecalciferol (Vitamin D3) [Vitamin D -] 50,000 unit PO WEEKLY 06/30/19 Metoclopramide HCl [Reglan] 5 mg PO Q12H #14 tablet 07/02/19 Pantoprazole Sodium [Protonix] 40 mg PO DAILY #30 tablet. 07/02/19 Insulin Glargine,Hum.rec.anlog [Bipinaglloan Vance U-100] 20 unit SQ HS 08/12/19 Lisinopril [Prinivil] 20 mg PO DAILY #30 tablet 08/15/19 tolerated diet doing well dc home fu pmd/gi as out patient
== END 2019-08-16 13:55 | disposition home or self-care (01) | DRG 253 ==
LOC: JER 06:39 → JERBED 10:00 → J6S 08-13 03:30
PROVIDERS: ADMIT Internal Medicine; ATTEND Internal Medicine
DX: K92.0 Hematemesis (principal); E11.43 Type 2 diabetes mellitus with diabetic autonomic (poly)neuropathy; K31.84 Gastroparesis; R11.2 Nausea with vomiting, unspecified; R10.9 Unspecified abdominal pain; D72.829 Elevated white blood cell count, unspecified; E78.00 Pure hypercholesterolemia, unspecified; K21.0 Gastro-esophageal reflux disease with esophagitis; K29.70 Gastritis, unspecified, without bleeding; I10 Essential (primary) hypertension
CPT/HCPCS: 36415; 71045-TC-FY; 74019-TC-FY; 74176-TC; 80048; 80053; 80076; 80307; 82248; 82962; 83690; 85025; 85610; 86850; 86900; 86901; 93005; 93010; 99285-25; Q9967; U0003

== ENCOUNTER 2019-09-14 17:20 | Inpatient (IN) | payer OTHER ==
[2019-09-14] MEDS ORDERED: ONDANSETRON 4 MG/2 ML VIAL IVPUSH ONE (17:30)
[2019-09-14] MEDS ORDERED: SODIUM CHLORIDE 1,000 ML IV STA (17:30)
[2019-09-14] MEDS ORDERED: PANTOPRAZOLE SODIUM 40 MG VIAL IVPUSH ONE (17:30)
--- NOTE | 2019-09-14 17:32 | PDOC ---
Rapid Medical Evaluation Chief Complaint: Pain Time Seen by Provider: 09/14/19 17:29 Medical Evaluation: Allergies Allergy/AdvReac Type Severity Reaction Status Date / Time Penicillins AdvReac Verified 06/30/19 15:00 Vital Signs Temp Pulse Resp BP Pulse Ox 98.0 F 81 16 148/94 100 09/14/19 17:28 09/14/19 17:28 09/14/19 17:28 09/14/19 17:28 09/14/19 17:28 09/14/19 17:30 CC: n/v since this am with gen abd cramping, no diarrhea, hx dm, last smoked marijuana 2 days ago, hx gastroparesis Exam: vss, marychuy vomiting bilious fluid Plan: labs, urine, ivf, meds Discharge Disposition - Diagnosis Nausea & vomiting - Referrals - Patient Instructions - Post Discharge Activity
[2019-09-14] MEDS ORDERED: PANTOPRAZOLE SODIUM 40 MG VIAL ONE (18:41)
--- NOTE | 2019-09-14 19:20 | PDOC ---
History of Present Illness - General Chief Complaint: Pain Stated Complaint: VOMITING/NAUSEA/ABD/PAIN Time Seen by Provider: 09/14/19 17:29 - History of Present Illness Initial Comments: Pt is a 38yo M with PMH T2DM, hx of gastroparesis who presents with nausea/vomiting. Pt reports n/v since yesterday. Has about 6 episodes of emesis per day, described as food-like, then bilious/yellow-green. Was able to tolerate dinner last night, but has not been able to eat today and has had emesis following water consumption. A/w diffuse abdominal pain that is worse with vomiting. Was seen here in August and told he has colitis, treated with antibiotics. Last colonoscopy/endoscopy in February, which was normal per patient's mother. Reports associated chills, weakness, fatigue, lightheadedness. Denies fevers, chest pain, syncope, SOB, diarrhea, constipation. PCP: GI: PMH: see above Meds: insulin All: penicillin Social: denies tobacco, etoh use. Reports marijuana use, last used 2 days ago. Review of Systems CONSTITUTIONAL:reports chills, generalized weakness, denies fever, diaphoresis, loss of appetite HEENT:denies rhinorrhea, nasal congestion, sore throat, ear pain, eye pain, visual Changes CARDIOVASCULAR:reports lightheadedness, denies chest pain, syncope, palpitations, peripheral edema RESPIRATORY:denies cough, shortness of breath, wheezing GASTROINTESTINAL: reports abdominal pain, nausea, vomiting; denies diarrhea, constipation, melena, hematochezia GENITOURINARY:denies dysuria, frequency, urgency, hesitancy, hematuria, flank pain, genital pain MUSCULOSKELETAL:denies myalgia, arthralgia, neck pain, back pain HEMATOLOGIC/IMMUNOLOGIC:denies easy bleeding, easy bruising NEUROLOGIC:denies headache, loss of consciousness, focal weakness or paresthesias, unsteady gait, seizure, mental status changes, bladder or bowel incontinence SKIN:denies rash, itching, pallor PSYCHIATRIC:denies anxiety, depression, suicidal or homicidal ideation, hallucinations. Physical Exam General: awake, alert, oriented, in mild distress, well developed, well nourished Head: normocephalic, atraumatic Eyes: PERRL, EOMI, anicteric sclera, conjunctiva clear ENT: hearing grossly normal, oropharynx clear without exudates. No nasal congestion, Moist mucous membranes Lung: equal breath sounds b/l, CTA b/l, no crackles, wheezes Heart: RRR, normal S1, S2, no murmurs, rubs, gallops Abdomen: soft, non tender, normoactive bowel sounds, no guarding, rebound, masses Extremities: no edema, no erythema or tenderness, DP/PT pulses 2+ and symmetric, no clubbing, cyanosis Neuro: CN2-12 grossly intact, moves all extremities, normal speech, sensation intact Skin: warm, dry, no rashes or lesions noted Past History - Medical History Allergies/Adverse Reactions: Allergies Allergy/AdvReac Type Severity Reaction Status Date / Time Penicillins AdvReac Verified 06/30/19 15:00 Home Medications: Ambulatory Orders Simvastatin 20 mg PO HS 01/28/18 Albuterol Sulfate [Albuterol Sulfate Hfa] 8.5 gm IH Q6H PRN 06/30/19 Cholecalciferol (Vitamin D3) [Vitamin D -] 50,000 unit PO WEEKLY 06/30/19 Metoclopramide HCl [Reglan] 5 mg PO Q12H #14 tablet 07/02/19 Pantoprazole Sodium [Protonix] 40 mg PO DAILY #30 tablet. 07/02/19 Insulin Glargine,Hum.rec.anlog [Basaglar Kwikpen U-100] 20 unit SQ HS 08/12/19 Lisinopril [Prinivil] 20 mg PO DAILY #30 tablet 08/15/19 Anemia: No Asthma: No Cancer: No Cardiac Disorders: No CVA: No COPD: No CHF: No Dementia: No Diabetes: Yes GI Disorders: No Disorders: No HTN: Yes Hypercholesterolemia: No Liver Disease: No Seizures: No Thyroid Disease: No - Surgical History Abdominal Surgery: No Appendectomy: No Cardiac Surgery: No Cholecystectomy: No GI Surgery: No Lung Surgery: No Neurologic Surgery: No Orthopedic Surgery: No - Immunization History Td Vaccination: Yes Immunization Up to Date: Yes - Psycho-Social/Smoking History Smoking History: Never smoked Have you smoked in the past 12 months: No If you are a former smoker, when did you quit?: 3 years Information on smoking cessation initiated: No - Substance Abuse Hx (Audit-C & DAST Scrn) How often the patient has a drink containing alcohol: Never Score: In Men: 4 or > Positive; In Women: 3 or > Positive: 0 Screen Result (Pos requires Nsg. Audit-10AR): Negative In the last yr the pt used illegal drug/Rx for NonMed reason: No Score: Yes response is considered Positive: 0 Screen Result (Positive result requires Nsg. DAST-10): Negative *Physical Exam - Vital Signs Last Vital Signs Temp Pulse Resp BP Pulse Ox 98.0 F 81 16 148/94 100 09/14/19 17:28 09/14/19 17:28 09/14/19 17:28 09/14/19 17:28 09/14/19 17:28 ED Treatment Course - LABORATORY CBC & Chemistry Diagram: 09/14/19 18:37 09/14/19 18:37 - Medications Given in the ED: ED Medications Discontinued Medications Generic Name Dose Route Start Last Admin Trade Name Freq PRN Reason Stop Dose Admin Sodium Chloride 1,000 mls @ 1,000 mls/hr 09/14/19 17:30 09/14/19 18:49 Normal Saline - IV 09/14/19 18:29 1,000 mls/hr ASDIR STA Administration Ondansetron HCl 4 mg 09/14/19 17:30 09/14/19 18:49 Zofran Injection IVPUSH 09/14/19 17:31 4 mg ONCE ONE Administration Pantoprazole Sodium 40 mg 09/14/19 17:30 09/14/19 18:49 Protonix Iv IVPUSH 09/14/19 17:31 40 mg ONCE ONE Administration Medical Decision Making - Medical Decision Making Pt is a 38yo M with PMH T2DM, hx of gastroparesis, UGIB, who presents with nausea/vomiting Vital Signs Period Temp Pulse Resp BP Sys/Quiñonez Pulse Ox Last 24 Hr 98.0 F 81 16 148/94 100 DDx: gastroparesis, Plan: labs, IVF, anti-emetics Laboratory Tests 09/14/19 09/14/19 18:37 18:37 WBC 11.9 H RBC 4.72 Hgb 15.3 Hct 45.9 MCV 97.3 H MCH 32.4 MCHC 33.3 RDW 14.1 Plt Count 285 MPV 8.8 Absolute Neuts (auto) 9.9 H Neutrophils % 83.1 H D Lymphocytes % 10.4 D Monocytes % 5.5 Eosinophils % 0.1 D Basophils % 0.9 Nucleated RBC % 0 Sodium 139 Potassium 4.9 Chloride 108 H Carbon Dioxide 20 L Anion Gap 10 BUN 10.6 Creatinine 1.3 Est GFR (CKD-EPI)AfAm 80.79 Est GFR (CKD-EPI)NonAf 69.70 Random Glucose 221 H Calcium 9.7 Magnesium 1.8 Total Bilirubin 0.7 AST 22 ALT 26 Alkaline Phosphatase 82 Total Protein 7.6 Albumin 4.1 Lipase 33 L 09/14/19 19:40 Labs: leukocytosis, no anemia, hyperchlorinemia, LFTs WNL On reassessment,after zofran and pepcid, patient reports no improvement. Gave ice chips, patient immediately vomited afterwards. 09/14/19 22:44 Pt unable to tolerate ice chips, continues to vomit with PO intake, this time with hematemesis Patient signed out to night team, pending admission Disposition Admit Discharge - Discharge Information Problems reviewed: Yes Clinical Impression/Diagnosis: Nausea & vomiting Qualifiers: Vomiting type: unspecified Vomiting Intractability: intractable Qualified Code (s): R11.2 - Nausea with vomiting, unspecified Condition: Stable - Admission Yes - Follow up/Referral - Patient Discharge Instructions - Post Discharge Activity
[2019-09-14 19:28] LABS: BASO % 0.9 % (0-2.0); EOS % 0.1 % (0-4.5); HEMATOCRIT 45.9 % (35.4-49); HEMOGLOBIN 15.3 GM/dL (11.7-16.9); LYMPH % 10.4 % (8-40); MCH 32.4 pg (25.7-33.7); MCHC 33.3 g/dl (32.0-35.9); MEAN CELL VOLUME 97.3 fl (80-96); MEAN PLT VOLUME 8.8 fl (7.5-11.1); MONO % 5.5 % (3.8-10.2); NEUT % 83.1 % (42.8-82.8); PLATELET COUNT 285 K/MM3 (134-434); RBC 4.72 M/mm3 (4.00-5.60); RDW 14.1 % (11.9-15.9); WHITE BLOOD COUNT 11.9 K/mm3 (4.0-10.0)
--- NOTE | 2019-09-14 20:26 | PDOC ---
Documentation entered by Elizabeth Bazzi SCRIBE, acting as scribe for Evelyn Clark MD. Evelyn Clark MD: This documentation has been prepared by the Rose Mary fenton Brenda, SCRIBE, under my direction and personally reviewed by me in its entirety. I confirm that the documentation accurately reflects all work, treatment, procedures, and medical decision making performed by me. Attending Attestation - Resident Resident Name: BairesGeno - ED Attending Attestation I have performed the following: I have examined & evaluated the patient, The case was reviewed & discussed with the resident, I agree w/resident's findings & plan, Exceptions are as noted - HPI HPI: 09/14/19 18:59 The patient is a 38 year old male with a significant PMH of NIDDM and gastroporesis who presents to the emergency department for evaluation of 1 day of nausea and vomitting. Patient notes about 6 episodes of vomitting per day which evolved into bilious color-like. Reports he hasn't been able to eat today. Also endorses diffuse abdominal pain. The patient denies chest pain, shortness of breath, headache and dizziness. Denies fever, diarrhea and constipation. Denies dysuria, frequency, urgency and hematuria. Allergies: Penicillins Social history: No reported hx of tobacco use, alcohol use or illicit drug use. - Physicial Exam PE: 09/14/19 19:00 GENERAL: slender 38 yo male with fatigued due to persistent vomiting HEENT: Normocephalic, atraumatic. PERRL, EOM intact. CARDIOVASCULAR: Normal S1, S2. Regular rate and rhythm. PULMONARY: Clear to auscultation bilaterally. ABDOMEN: Soft, non-distended, non-tender. EXTREMITIES: Normal ROM in all four extremities. No gross deformities. SKIN: Warm, dry. No rash NEUROLOGICAL: conversant,moving all extremities 09/14/19 20:24 - Medical Decision Making 09/14/19 20:26 38 yo male w Diabetes was recently seen by his primary doctor Dr. Geovani Acosta .. He is also followed by his biofuels product development manager for his gastroparesis. 09/14/19 20:34 cbc wbc=11.9, no anemia chemistries reveal glucose 221 09/14/19 22:55 pt failed po challenge, he keeps vomiting Discharge - Discharge Information Problems reviewed: Yes Clinical Impression/Diagnosis: Nausea & vomiting, Diabetic gastroparesis Condition: Stable - Follow up/Referral - Patient Discharge Instructions - Post Discharge Activity
[2019-09-14] MEDS ORDERED: METOCLOPRAMIDE HCL INJECTION 10 MG/2 ML VIAL IVPUSH ONE (20:27)
[2019-09-14 20:32] LABS: ALBUMIN 4.1 g/dl (3.4-5.0); BILIRUBIN,TOTAL 0.7 mg/dL (0.2-1); BLOOD UREA NITROGEN 10.6 mg/dL (7-18); CALCIUM 9.7 mg/dL (8.5-10.1); CREATININE 1.3 mg/dL (0.55-1.3); MAGNESIUM 1.8 mg/dL (1.8-2.4); POTASSIUM 4.9 mmol/L (3.5-5.1); TOT PROT 7.6 g/dl (6.4-8.2)
[2019-09-14] MEDS ORDERED: METOCLOPRAMIDE HCL INJECTION 10 MG/2 ML VIAL ONE (21:18)
--- NOTE | 2019-09-15 01:52 | PDOC ---
*Physical Exam - Vital Signs Last Vital Signs Temp Pulse Resp BP Pulse Ox 98.9 F 67 16 121/73 99 09/14/19 19:55 09/14/19 19:55 09/14/19 17:28 09/14/19 19:55 09/14/19 19:55 ED Treatment Course - LABORATORY CBC & Chemistry Diagram: 09/14/19 18:37 09/14/19 18:37 - ADDITIONAL ORDERS Additional order review: Laboratory Results 09/14/19 09/14/19 19:50 18:37 Sodium 139 Potassium 4.9 Chloride 108 H Carbon Dioxide 20 L Anion Gap 10 BUN 10.6 Creatinine 1.3 Est GFR (CKD-EPI)AfAm 80.79 Est GFR (CKD-EPI)NonAf 69.70 Random Glucose 221 H Calcium 9.7 Magnesium 1.8 Total Bilirubin 0.7 AST 22 ALT 26 Alkaline Phosphatase 82 Total Protein 7.6 Albumin 4.1 Lipase 33 L Blood Type O POSITIVE Antibody Screen Negative 09/14/19 18:37 RBC 4.72 MCV 97.3 H MCHC 33.3 RDW 14.1 MPV 8.8 Neutrophils % 83.1 H D Lymphocytes % 10.4 D Monocytes % 5.5 Eosinophils % 0.1 D Basophils % 0.9 - Medications Given in the ED: ED Medications Discontinued Medications Generic Name Dose Route Start Last Admin Trade Name Angq PRN Reason Stop Dose Admin Diphenhydramine HCl 25 mg 09/14/19 20:28 09/14/19 21:31 Benadryl Injection - IVPB 09/14/19 20:29 25 mg ONCE ONE Administration Sodium Chloride 1,000 mls @ 1,000 mls/hr 09/14/19 17:30 09/14/19 18:49 Normal Saline - IV 09/14/19 18:29 1,000 mls/hr ASDIR STA Administration Metoclopramide HCl 10 mg 09/14/19 20:27 09/14/19 21:31 Reglan Injection - IVPUSH 09/14/19 20:28 10 mg ONCE ONE Administration Ondansetron HCl 4 mg 09/14/19 17:30 09/14/19 18:49 Zofran Injection IVPUSH 09/14/19 17:31 4 mg ONCE ONE Administration Pantoprazole Sodium 40 mg 09/14/19 17:30 08/03/20 18:49 Protonix Iv IVPUSH 09/14/19 17:31 40 mg ONCE ONE Administration Medical Decision Making - Medical Decision Making 09/15/19 01:52 D/w CORTEZ Rivera who accepts the patient for admission. Discharge - Discharge Information Problems reviewed: Yes Clinical Impression/Diagnosis: Diabetic gastroparesis Nausea & vomiting Qualifiers: Vomiting type: unspecified Vomiting Intractability: intractable Qualified Code(s): R11.2 - Nausea with vomiting, unspecified Condition: Stable - Admission Yes - Follow up/Referral - Patient Discharge Instructions - Post Discharge Activity
--- NOTE | 2019-09-15 01:57 | HP ---
Admitting History and Physical - Admission Chief Complaint: Nausea, Vomiting History of Present Illness: This is a 38 y/o male with a PMHx of HTN, IDDM, Gastroparesis, Marijuana Dependency, last admission 08/11-08/15 Upper GI Bleed, Colitis. Who presents to the ED with nausea, NB emesis, epigastric pain x1 day. Patient reports having nausea with >6 episodes of bilious, NB emesis, with sharp epigastric pain. Patient reports tolerating dinner the night before, but has not been able to eat yeste rday. Last colonoscopy/endoscopy in February, which was normal per patient's mother. Patient also reports having chills, weakness, fatigue, lightheadedness. He denies fever, SOB, chest pain, diarrhea, constipation, dysuria. He reports last marijuana use was 2 days ago. History Source: Patient, Family Member Limitations to Obtaining History: No Limitations - Past Medical History Cardiovascular: Yes: HTN Pulmonary: Yes: Asthma (last used inhaler 1 week ago) Gastrointestinal: Yes: Gastritis (for 10-11 years, GI doctor at [facility] last EGD 3 to 4 months ago, as well as colonscopy(different times)), Other (gastroparesis) Hepatobiliary: Yes: Other (no history of HIV). No: Hepatitis A, Hepatitis B, Hepatitis C Endocrine: Yes: Diabetes Mellitus - Past Surgical History Past Surgical History: Yes: Colonoscopy, Tonsillectomy, Upper Endoscopy - Smoking History Smoking history: Former smoker Have you smoked in the past 12 months: No If you are a former smoker, when did you quit?: 3 years - Alcohol/Substance Use Hx Alcohol Use: No History of Substance Use: reports: Marijuana - Social History Usual Living Arrangement: Yes: With Parent Do you think of yourself as: Declined to answer ADL: Independent History of Recent Travel: No Home Medications - Allergies Allergies/Adverse Reactions: Allergies Allergy/AdvReac Type Severity Reaction Status Date / Time Penicillins AdvReac Verified 06/30/19 15:00 - Home Medications Home Medications: Ambulatory Orders Insulin Glargine,Hum.rec.anlog [Carlos A Vance U-100] 20 unit SQ HS 08/12/19 Family Medical History Family History: Unremarkable Review of Systems - Review of Systems Constitutional: reports: Chills, Loss of Appetite, Weakness Eyes: reports: No Symptoms HENT: reports: No Symptoms Neck: reports: No Symptoms Cardiovascular: reports: No Symptoms Respiratory: reports: No Symptoms Gastrointestinal: reports: Abdominal Pain, Nausea, Vomiting. denies: Constipation, Diarrhea, Rectal Bleeding, Vomiting Blood Genitourinary: reports: No Symptoms Breasts: reports: No Symptoms Reported Musculoskeletal: reports: No Symptoms Integumentary: reports: No Symptoms Neurological: reports: Dizziness Endocrine: reports: No Symptoms Hematology/Lymphatic: reports: No Symptoms Psychiatric: reports: No Symptoms Pain Intensity: 6 Physical Examination Vital Signs: Vital Signs Temperature 98.9 F 09/14/19 19:55 Pulse Rate 67 09/14/19 19:55 Respiratory Rate 16 09/14/19 17:28 Blood Pressure 121/73 09/14/19 19:55 O2 Sat by Pulse Oximetry (%) 99 09/14/19 19:55 Constitutional: Yes: Mild Distress, Thin Eyes: Yes: WNL, Conjunctiva Clear, EOM Intact, PERRL HENT: Yes: Atraumatic, Normocephalic, Other (dry mucous membranes) Neck: Yes: Supple, Trachea Midline Cardiovascular: Yes: Regular Rate and Rhythm, S1, S2 Respiratory: Yes: WNL, Regular, CTA Bilaterally Gastrointestinal: Yes: Soft, Hyperactive Bowel Sounds, Tenderness, Epigastrium ...Rectal Exam: Yes: Deferred Renal/: Yes: WNL Breast(s): Yes: WNL Musculoskeletal: Yes: WNL Extremities: Yes: WNL Edema: No Peripheral Pulses WNL: Yes Integumentary: Yes: WNL Neurological: Yes: WNL, Alert, Oriented ...Motor Strength: WNL Psychiatric: Yes: WNL, Alert, Oriented Labs: CBC, BMP 09/14/19 18:37 09/14/19 18:37 Laboratory Results - last 24 hr 09/14/19 09/14/19 09/14/19 18:37 18:37 19:50 WBC 11.9 H RBC 4.72 Hgb 15.3 Hct 45.9 MCV 97.3 H MCH 32.4 MCHC 33.3 RDW 14.1 Plt Count 285 MPV 8.8 Absolute Neuts (auto) 9.9 H Neutrophils % 83.1 H D Lymphocytes % 10.4 D Monocytes % 5.5 Eosinophils % 0.1 D Basophils % 0.9 Nucleated RBC % 0 Sodium 139 Potassium 4.9 Chloride 108 H Carbon Dioxide 20 L Anion Gap 10 BUN 10.6 Creatinine 1.3 Est GFR (CKD-EPI)AfAm 80.79 Est GFR (CKD-EPI)NonAf 69.70 POC Glucometer Random Glucose 221 H Calcium 9.7 Magnesium 1.8 Total Bilirubin 0.7 AST 22 ALT 26 Alkaline Phosphatase 82 Total Protein 7.6 Albumin 4.1 Lipase 33 L Urine Color Urine Appearance Urine pH Ur Specific Arnold Urine Protein Urine Glucose (UA) Urine Ketones Urine Blood Urine Nitrite Urine Bilirubin Urine Urobilinogen Ur Leukocyte Esterase Opiates Screen Methadone Screen Barbiturate Screen Phencyclidine Screen Ur Amphetamines Screen MDMA (Ecstasy) Screen Benzodiazepines Screen Cocaine Screen U Marijuana (THC) Screen Blood Type O POSITIVE Antibody Screen Negative 09/15/19 09/15/19 09/15/19 02:40 02:40 03:55 WBC RBC Hgb Hct MCV MCH MCHC RDW Plt Count MPV Absolute Neuts (auto) Neutrophils % Lymphocytes % Monocytes % Eosinophils % Basophils % Nucleated RBC % Sodium Potassium Chloride Carbon Dioxide Anion Gap BUN Creatinine Est GFR (CKD-EPI)AfAm Est GFR (CKD-EPI)NonAf POC Glucometer 257 Random Glucose Calcium Magnesium Total Bilirubin AST ALT Alkaline Phosphatase Total Protein Albumin Lipase Urine Color Yellow Urine Appearance Clear Urine pH 7.0 D Ur Specific Arnold 1.030 Urine Protein Negative Urine Glucose (UA) 2+ H Urine Ketones 2+ H Urine Blood Negative Urine Nitrite Negative Urine Bilirubin Negative Urine Urobilinogen 0.2 Ur Leukocyte Esterase Negative Opiates Screen Negative Methadone Screen Negative Barbiturate Screen Negative Phencyclidine Screen Negative Ur Amphetamines Screen Negative MDMA (Ecstasy) Screen Negative Benzodiazepines Screen Negative Cocaine Screen Negative U Marijuana (THC) Screen Positive A* Blood Type Antibody Screen Intake & Output 09/12/19 09/13/19 09/14/19 09/15/19 23:59 23:59 23:59 23:59 Intake Total 250 Output Total 625 Balance -375 Weight 81.647 kg 77.564 kg Current Medications Generic Name Dose Route Start Last Admin Trade Name Freq PRN Reason Stop Dose Admin Sodium Chloride 1,000 mls @ 100 mls/hr 09/15/19 02:00 09/15/19 02:44 Normal Saline - IV 100 mls/hr ASDIR ANDI Administration Metoclopramide HCl 10 mg 09/15/19 04:00 09/15/19 04:30 Reglan Injection - IVPUSH 10 mg Q6H PRN Administration NAUSEA AND/OR VOMITING Pantoprazole Sodium 40 mg 09/15/19 10:00 Protonix Iv IVPUSH DAILY ANDI Imaging - Results Ultrasound: Pending Problem List - Problems (1) Diabetic gastroparesis Assessment/Plan: Likely cyclic secondary to cannabis use Glucose 221 Continue IVF Reglan given in ED will continue PPI Monitor CMP Patient counseled on Cannabis cessation, he is not amendable Consider GI consult Consider Endocrinology consult Code(s): 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; K31.84 - GASTROPARESIS (2) Nausea & vomiting Assessment/Plan: See above Code(s): R11.2 - NAUSEA WITH VOMITING, UNSPECIFIED Qualifiers: Vomiting type: unspecified Vomiting Intractability: intractable Qualified Code(s): R11.2 - Nausea with vomiting, unspecified (3) Abdominal pain Assessment/Plan: Likely secondary to Gastroparesis vs Colitis Recent treatment for Colitis last month +Leukocytosis with neutrophilia Abdominal US-pending Continue IVF Reglan prn PPI Consider GI consult Monitor CBC, CMP Monitor vitals Code(s): R10.9 - UNSPECIFIED ABDOMINAL PAIN (4) Leukocytosis Assessment/Plan: Likely due to inflammation vs infection vs malignancy Blood Cultures-pending Pt is afebrile Monitor CBC Monitor vitals Will hold off on ABX for now and continue to monitor Code(s): D72.829 - ELEVATED WHITE BLOOD CELL COUNT, UNSPECIFIED (5) Type 2 diabetes mellitus with diabetic neuropathic arthropathy Assessment/Plan: BGMs ISS when diet resumed Code(s): E11.610 - TYPE 2 DIABETES MELLITUS W DIABETIC NEUROPATHIC ARTHROPATHY (6) HTN (hypertension) Assessment/Plan: stable Monitor BP Continue Lisinopril Monitor renal function Code(s): I10 - ESSENTIAL (PRIMARY) HYPERTENSION (7) Encounter for screening laboratory testing for COVID-19 virus Assessment/Plan: Low Risk Covid PCR-pending Isolation Precautions Code(s): Z11.59 - ENCOUNTER FOR SCREENING FOR OTHER VIRAL DISEASES Assessment/Plan This is a 38 y/o male with a PMHx of HTN, IDDM, Gastroparesis, Marijuana Dependency, last admission 08/11-08/15 Upper GI Bleed, Colitis. Admitted to [facility] for Gastroparesis, Abdominal Pain for further evaluation of their emergent condition. Plan: See Problem List FEN NS@100ml/hr Replete lytes prn NPO DVT ppx Low Risk OOB SCDs Dispo: Requires Inpatient Care Visit type - Emergency Visit Emergency Visit: Yes ED Registration Date: 09/14/19 Care time: The patient presented to the Emergency Department on the above date and was hospitalized for further evaluation of their emergent condition. - New Patient This patient is new to me today: Yes Date on this admission: 09/15/19 - Critical Care Critical Care patient: No
[2019-09-15] MEDS: SODIUM CHLORIDE 1,000 ML IV SCH ×2 (02:44→22:53)
[2019-09-15 03:09] LABS: URINE APPEARANCE CLEAR; URINE BILIRUBIN NEGATIVE (NEGATIVE); URINE COLOR YELLOW; URINE GLUCOSE (UA) 2+ (NEGATIVE); URINE KETONE 2+ (NEGATIVE); URINE LEUK ESTERASE NEGATIVE (NEGATIVE); URINE NITRITE NEGATIVE (NEGATIVE); URINE PROTEIN NEGATIVE (NEGATIVE); URINE UROBILINOGEN 0.2 mg/dL (0.2-1.0)
[2019-09-15 03:22] LABS: COCAINE, UR NEGATIVE ng/ml (CUTOFF=300); METHADONE, UR NEGATIVE ng/ml (CUTOFF=300); OPIATES, URI NEGATIVE ng/ml (CUTOFF=300); PHENCYCLIDINE,URINE NEGATIVE ng/ml (CUTOFF=25); URINE AMPHETAMINES NEGATIVE ng/ml (CUTOFF=500); URINE BARBITURATES NEGATIVE ng/ml (CUTOFF=200)
[2019-09-15 03:23] LABS: URINE BENZODIAZEPINES NEGATIVE ng/ml (CUTOFF=200)
[2019-09-15] MEDS: METOCLOPRAMIDE HCL INJECTION 10 MG/2 ML VIAL IVPUSH PRN ×2 (04:30→11:20)
[2019-09-15 04:54] VITALS: BMI 24.5
[2019-09-15] MEDS ORDERED: ACETAMINOPHEN 1000 MG/100 ML VIAL (NON FORMULARY) IVPB ONE (06:31)
[2019-09-15 07:18] LABS: BASO % 0.3 % (0-2.0); HEMATOCRIT 42.1 % (35.4-49); LYMPH % 7.8 % (8-40); MCHC 33.3 g/dl (32.0-35.9); MEAN CELL VOLUME 96.1 fl (80-96); MEAN PLT VOLUME 8.9 fl (7.5-11.1); NEUT % 83.9 % (42.8-82.8); PLATELET COUNT 251 K/MM3 (134-434); RBC 4.38 M/mm3 (4.00-5.60); RDW 14.2 % (11.9-15.9); WHITE BLOOD COUNT 10.7 K/mm3 (4.0-10.0)
[2019-09-15 07:33] LABS: ALBUMIN 3.7 g/dl (3.4-5.0); BILIRUBIN,TOTAL 0.7 mg/dL (0.2-1); BLOOD UREA NITROGEN 14.2 mg/dL (7-18); CALCIUM 8.6 mg/dL (8.5-10.1); CREATININE 1.2 mg/dL (0.55-1.3); POTASSIUM 4.3 mmol/L (3.5-5.1); TOT PROT 6.8 g/dl (6.4-8.2)
[2019-09-15] MEDS ORDERED: ONDANSETRON 4 MG/2 ML VIAL IVPUSH ONE (09:11)
[2019-09-15] MEDS: PANTOPRAZOLE SODIUM 40 MG VIAL IVPUSH SCH (09:17)
--- NOTE | 2019-09-15 14:14 | PN ---
Physical Exam: SUBJECTIVE: Patient seen and examined at [facility]. Patient was lethargic with the vomit bag next to him. Vomit bag was filled with dark fluid and green vomit. Patient denies current nausea s/p zofran. OBJECTIVE: Vital Signs Period Temp Pulse Resp BP Sys/Quiñonez Pulse Ox Last 24 Hr 98.0 F-99.1 F 67-88 16-19 121-154/73-97 99-100 GENERAL: The patient is awake, alert, and fully oriented, in no acute distress. LUNGS: Breath sounds equal, clear to auscultation bilaterally, no wheezes, no crackles, no accessory muscle use. HEART: Regular rate and rhythm, S1, S2 without murmur, rub or gallop. ABDOMEN: Soft, nontender, nondistended, normoactive bowel sounds, no guarding, no rebound, no hepatosplenomegaly, no masses. EXTREMITIES: 2+ pulses, warm, well-perfused, no edema. SKIN: Warm, dry, normal turgor, no rashes or lesions noted Laboratory Results - last 24 hr 09/14/19 09/14/19 09/14/19 18:37 18:37 19:50 WBC 11.9 H RBC 4.72 Hgb 15.3 Hct 45.9 MCV 97.3 H MCH 32.4 MCHC 33.3 RDW 14.1 Plt Count 285 MPV 8.8 Absolute Neuts (auto) 9.9 H Neutrophils % 83.1 H D Lymphocytes % 10.4 D Monocytes % 5.5 Eosinophils % 0.1 D Basophils % 0.9 Nucleated RBC % 0 Sodium 139 Potassium 4.9 Chloride 108 H Carbon Dioxide 20 L Anion Gap 10 BUN 10.6 Creatinine 1.3 Est GFR (CKD-EPI)AfAm 80.79 Est GFR (CKD-EPI)NonAf 69.70 POC Glucometer Random Glucose 221 H Calcium 9.7 Magnesium 1.8 Total Bilirubin 0.7 AST 22 ALT 26 Alkaline Phosphatase 82 Total Protein 7.6 Albumin 4.1 Lipase 33 L Urine Color Urine Appearance Urine pH Ur Specific [place] Urine Protein Urine Glucose (UA) Urine Ketones Urine Blood Urine Nitrite Urine Bilirubin Urine Urobilinogen Ur Leukocyte Esterase Opiates Screen Methadone Screen Barbiturate Screen Phencyclidine Screen Ur Amphetamines Screen MDMA (Ecstasy) Screen Benzodiazepines Screen Cocaine Screen U Marijuana (THC) Screen Blood Type O POSITIVE Antibody Screen Negative 09/15/19 09/15/19 09/15/19 02:40 02:40 03:55 WBC RBC Hgb Hct MCV MCH MCHC RDW Plt Count MPV Absolute Neuts (auto) Neutrophils % Lymphocytes % Monocytes % Eosinophils % Basophils % Nucleated RBC % Sodium Potassium Chloride Carbon Dioxide Anion Gap BUN Creatinine Est GFR (CKD-EPI)AfAm Est GFR (CKD-EPI)NonAf POC Glucometer 257 Random Glucose Calcium Magnesium Total Bilirubin AST ALT Alkaline Phosphatase Total Protein Albumin Lipase Urine Color Yellow Urine Appearance Clear Urine pH 7.0 D Ur Specific [place] 1.030 Urine Protein Negative Urine Glucose (UA) 2+ H Urine Ketones 2+ H Urine Blood Negative Urine Nitrite Negative Urine Bilirubin Negative Urine Urobilinogen 0.2 Ur Leukocyte Esterase Negative Opiates Screen Negative Methadone Screen Negative Barbiturate Screen Negative Phencyclidine Screen Negative Ur Amphetamines Screen Negative MDMA (Ecstasy) Screen Negative Benzodiazepines Screen Negative Cocaine Screen Negative U Marijuana (THC) Screen Positive A* Blood Type Antibody Screen 09/15/19 09/15/19 09/15/19 06:40 06:40 06:44 WBC 10.7 H RBC 4.38 Hgb 14.0 Hct 42.1 MCV 96.1 H MCH 32.0 MCHC 33.3 RDW 14.2 Plt Count 251 MPV 8.9 Absolute Neuts (auto) 9.0 H Neutrophils % 83.9 H Lymphocytes % 7.8 L D Monocytes % 8.0 Eosinophils % 0.0 D Basophils % 0.3 Nucleated RBC % 0 Sodium 141 Potassium 4.3 Chloride 106 Carbon Dioxide 23 Anion Gap 11 BUN 14.2 Creatinine 1.2 Est GFR (CKD-EPI)AfAm 89.00 Est GFR (CKD-EPI)NonAf 76.79 POC Glucometer 257 Random Glucose 254 H Calcium 8.6 Magnesium Total Bilirubin 0.7 AST 16 ALT 22 Alkaline Phosphatase 76 Total Protein 6.8 Albumin 3.7 Lipase Urine Color Urine Appearance Urine pH Ur Specific [place] Urine Protein Urine Glucose (UA) Urine Ketones Urine Blood Urine Nitrite Urine Bilirubin Urine Urobilinogen Ur Leukocyte Esterase Opiates Screen Methadone Screen Barbiturate Screen Phencyclidine Screen Ur Amphetamines Screen MDMA (Ecstasy) Screen Benzodiazepines Screen Cocaine Screen U Marijuana (THC) Screen Blood Type Antibody Screen 09/15/19 11:26 WBC RBC Hgb Hct MCV MCH MCHC RDW Plt Count MPV Absolute Neuts (auto) Neutrophils % Lymphocytes % Monocytes % Eosinophils % Basophils % Nucleated RBC % Sodium Potassium Chloride Carbon Dioxide Anion Gap BUN Creatinine Est GFR (CKD-EPI)AfAm Est GFR (CKD-EPI)NonAf POC Glucometer 249 Random Glucose Calcium Magnesium Total Bilirubin AST ALT Alkaline Phosphatase Total Protein Albumin Lipase Urine Color Urine Appearance Urine pH Ur Specific [place] Urine Protein Urine Glucose (UA) Urine Ketones Urine Blood Urine Nitrite Urine Bilirubin Urine Urobilinogen Ur Leukocyte Esterase Opiates Screen Methadone Screen Barbiturate Screen Phencyclidine Screen Ur Amphetamines Screen MDMA (Ecstasy) Screen Benzodiazepines Screen Cocaine Screen U Marijuana (THC) Screen Blood Type Antibody Screen Active Medications Generic Name Dose Route Start Last Admin Trade Name Freq PRN Reason Stop Dose Admin Sodium Chloride 1,000 mls @ 100 mls/hr 09/15/19 02:00 09/15/19 02:44 Normal Saline - IV 100 mls/hr ASDIR ANDI Administration Metoclopramide HCl 10 mg 09/15/19 04:00 09/15/19 11:20 Reglan Injection - IVPUSH 10 mg Q6H PRN Administration NAUSEA AND/OR VOMITING Pantoprazole Sodium 40 mg 09/15/19 10:00 09/15/19 09:17 Protonix Iv IVPUSH 40 mg DAILY ANDI Administration ASSESSMENT/PLAN: Jeannine is a 38M w a h/o of marijuana dependency , IDDM, and htn who presents to the ed for intractable non bloody bilious vomiting for 1 day with abdominal pain. #Gastroparesis - Currently being treated with zofran (QTc wnl) - patients nausea temporarily resolved - patient lethargic - will monitor electrolytes, anion gap, cbc - Patient return from US of abdomen - no significant pathology noted - patient will be given reglan post prandial - protonix 40mg daily #DVT prophylaxis: Not indicated Visit type - Emergency Visit Emergency Visit: Yes ED Registration Date: 09/14/19 Care time: The patient presented to the Emergency Department on the above date and was hospitalized for further evaluation of their emergent condition. - New Patient This patient is new to me today: Yes Date on this admission: 09/15/19 - Critical Care Critical Care patient: No - Discharge Referral Referred to [facility] Med P.C.: No ATTENDING PHYSICIAN STATEMENT I saw and evaluated the patient. I reviewed the resident's note and discussed the case with the resident. I agree with the resident's findings and plan as documented. SUBJECTIVE: OBJECTIVE: ASSESSMENT AND PLAN:
--- NOTE | 2019-09-15 17:02 | PN ---
Teaching Attending Note Name of Resident: Rajat Barajas ATTENDING PHYSICIAN STATEMENT I saw and evaluated the patient. I reviewed the resident's note and discussed the case with the resident. I agree with the resident's findings and plan as documented. SUBJECTIVE: Seen and examined at bedside. Patient reports had 2 episodes of vomiting this morning but pain has improved. Patient appears very fatigued. Pending EKG for QTC evaluation and GI consult OBJECTIVE: Last Vital Signs Temp Pulse Resp BP Pulse Ox 98.8 F 79 18 161/85 99 09/15/19 14:46 09/15/19 14:46 09/15/19 14:46 09/15/19 14:46 09/15/19 09:00 PE: Per resident note Labs/Imaging: reviewed ASSESSMENT AND PLAN: 38-year-old male with past medical history of hypertension, insulin-dependent diabetes, gastroparesis, marijuana dependency presents to the ED with nausea vomiting and abdominal pain x1 day. Admitted for intractable nausea and vomiting in the setting of gastroparesis #Gastroparesis with nausea and vomiting Abdominal ultrasound unremarkable Reglan with meals Zofran PRN pending QTC evaluation GI consulted: Pending recommendations Protonix #DVT prophylaxis: Not indicated
[2019-09-15] MEDS: METOCLOPRAMIDE HCL INJECTION 10 MG/2 ML VIAL IVPUSH SCH (17:46)
[2019-09-15] MEDS: ONDANSETRON 4 MG/2 ML VIAL IVPUSH PRN (18:58)
[2019-09-16] MEDS: ACETAMINOPHEN 325 MG TABLET (FP) PO PRN (00:24)
[2019-09-16] MEDS: SODIUM CHLORIDE 1,000 ML IV SCH ×3 (02:06→22:40)
[2019-09-16] MEDS: ONDANSETRON 4 MG/2 ML VIAL IVPUSH PRN ×4 (02:10→23:45)
[2019-09-16] MEDS: METOCLOPRAMIDE HCL INJECTION 10 MG/2 ML VIAL IVPUSH SCH ×2 (06:02→10:12)
--- NOTE | 2019-09-16 09:08 | EKG ---
Test Reason : Blood Pressure : / mmHG Vent. Rate : 078 BPM Atrial Rate : 078 BPM P-R Int : 142 ms QRS Dur : 084 ms QT Int : 378 ms P-R-T Axes : 062 065 063 degrees QTc Int : 430 ms NORMAL SINUS RHYTHM NORMAL ECG WHEN COMPARED WITH ECG OF 13-AUG-2019 13:43, NO SIGNIFICANT CHANGE WAS FOUND Confirmed by Jb Nguyễn ([id number]) on 09/16/2019 9:08:13 AM Referred By: MARIANELA PEREZ Confirmed By:Jb Nguyễn
[2019-09-16] MEDS: PANTOPRAZOLE SODIUM 40 MG VIAL IVPUSH SCH (09:35)
[2019-09-16 09:47] LABS: HEMATOCRIT 41.2 % (35.4-49); HEMOGLOBIN 13.7 GM/dL (11.7-16.9); MCH 31.9 pg (25.7-33.7); MCHC 33.3 g/dl (32.0-35.9); MEAN CELL VOLUME 96.1 fl (80-96); MEAN PLT VOLUME 9.1 fl (7.5-11.1); PLATELET COUNT 248 K/MM3 (134-434); RBC 4.29 M/mm3 (4.00-5.60); WHITE BLOOD COUNT 11.2 K/mm3 (4.0-10.0)
[2019-09-16] MEDS: INSULIN SLIDING SCALE (NOVOLOG) 1 VIAL SQ SCH ×3 (10:16→23:45)
[2019-09-16 10:26] LABS: BLOOD UREA NITROGEN 16.3 mg/dL (7-18); CALCIUM 8.8 mg/dL (8.5-10.1); CREATININE 1.1 mg/dL (0.55-1.3); PHOSPHOROUS 2.4 mg/dL (2.5-4.9); POTASSIUM 4.1 mmol/L (3.5-5.1)
--- NOTE | 2019-09-16 11:38 | PN ---
Progress Note (short form) - Note Progress Note: GI CONSULT DICTATED
--- NOTE | 2019-09-16 15:59 | PN ---
Teaching Attending Note Name of Resident: Rajat Barajas ATTENDING PHYSICIAN STATEMENT I saw and evaluated the patient. I reviewed the resident's note and discussed the case with the resident. I agree with the resident's findings and plan as documented. SUBJECTIVE: Seen and examined at bedside. Patient has had multiple episodes of vomiting next 24 hours. Reglan and Zofran have been ineffective. Will discontinue Reglan and start trial of erythromycin 3 times daily prior to meals OBJECTIVE: Last Vital Signs Temp Pulse Resp BP Pulse Ox 98.5 F 68 18 170/94 99 09/16/19 13:38 09/16/19 13:38 09/16/19 13:38 09/16/19 13:38 09/16/19 13:38 PE: Per resident note Labs/Imaging: reviewed ASSESSMENT AND PLAN: 38-year-old male with past medical history of hypertension, insulin-dependent diabetes, gastroparesis, marijuana dependency presents to the ED with nausea vomiting and abdominal pain x1 day. Admitted for intractable nausea and vomiting in the setting of gastroparesis #Gastroparesis with nausea and vomiting Abdominal ultrasound unremarkable -switch to erythromycin IV with meals Zofran PRN GI consulted: Pending recommendations Protonix #DVT prophylaxis: Not indicated
--- NOTE | 2019-09-16 17:07 | CONS ---
DATE OF CONSULTATION: DATE OF DICTATION: 09/16/2019 GASTROENTEROLOGY CONSULTATION HISTORY OF PRESENT ILLNESS: The patient is a 38-year-old man who is known to me from his previous admissions. He has a past medical history of hypertension, insulin dependent diabetes, gastroparesis, marijuana dependence, previously admitted for similar symptoms, who is now admitted to the hospital with nausea, nonbilious emesis, and epigastric abdominal pain. At this time he states his pain is similar to previous episodes, and he would just like to rest. Again, the report is of a colonoscopy and endoscopy done in February, which as per the patient's family is reported to be normal. He did not have any endoscopic procedures done since then at this institution. PAST MEDICAL AND SURGICAL HISTORY: As listed in the HPI. ALLERGIES: PENICILLIN. HOME MEDICATIONS: Insulin. SOCIAL HISTORY: Former smoker, uses marijuana, no alcohol. FAMILY HISTORY: No history of GI or gynecological malignancy. REVIEW OF SYSTEMS: As per the HPI. Of note, there is no melena, hematochezia, hematemesis, syncope. PHYSICAL EXAMINATION: Vital Signs: Temperature 98, pulse 68, blood pressure 170/94, respiratory rate 18, oxygen saturation 99% on room air. General: In no acute distress. HEENT: Anicteric sclerae. Cardiovascular: S1, S2, regular rate and rhythm. Lungs: Bilaterally clear to auscultation. Abdomen: Soft, nontender. Extremities: No edema. LABORATORY: White blood cell count 11.2, hemoglobin and hematocrit 13/41, MCV 96, platelet count 248. Sodium 139, potassium 4.1, BUN/creatinine 16/1.1, glucose 266. COVID-19 is negative. Toxicology screen positive for marijuana. Urine 2+ glucose and ketones. Abdominal ultrasound was performed and revealed normal abdominal ultrasound. IMPRESSION: Nausea, vomiting, and epigastric abdominal pain most consistent with his history of gastroparesis worsened by his marijuana use, which may be precipitating cyclical vomiting syndrome. RECOMMENDATION: He can be continued on a clear liquid diet, and as his symptoms improved, this can be advanced to a full liquid diet and then to a lactose-free diet that is low in fiber. He is on erythromycin IV which can be continued. Apparently he does not react well to Reglan in the past. He also can be continued on his PPI therapy for now, glycemic optimization. It would benefit if we could obtain his endoscopy and colonoscopy report from [facility]. DO BEL RODRIGUEZ/[id number]
[2019-09-16] MEDS: ERYTHROMYCIN INJECTION - 250 MG in SODIUM CHLORIDE 100 ML IVPB SCH (17:29)
[2019-09-16] MEDS ORDERED: ONDANSETRON 4 MG/2 ML VIAL IVPUSH ONE (17:34)
[2019-09-16] MEDS ORDERED: METOCLOPRAMIDE HCL INJECTION 10 MG/2 ML VIAL IVPUSH ONE (18:23)
--- NOTE | 2019-09-16 20:47 | PN ---
Physical Exam: SUBJECTIVE: Patient seen and examined at bedside. Patient reports continued vomiting without relief with zofran. Patient will be placed on erythromycin therapy. OBJECTIVE: Vital Signs Period Temp Pulse Resp BP Sys/Quiñonez Pulse Ox Last 24 Hr 98.3 F-98.5 F 68-79 18-18 144-170/88-99 99-100 GENERAL: The patient is awake, alert, and fully oriented, in mild distress. NECK: Trachea midline, full range of motion, supple. LUNGS: Breath sounds equal, clear to auscultation bilaterally, no wheezes, no cr ackles, no accessory muscle use. HEART: Regular rate and rhythm, S1, S2 without murmur, rub or gallop. ABDOMEN: EPIGASTRIC TENDERNESS EXTREMITIES: 2+ pulses, warm, well-perfused, no edema. SKIN: Warm, dry, normal turgor, no rashes or lesions noted Laboratory Results - last 24 hr 09/15/19 09/15/19 09/16/19 00:45 22:14 05:59 WBC RBC Hgb Hct MCV MCH MCHC RDW Plt Count MPV Sodium Potassium Chloride Carbon Dioxide Anion Gap BUN Creatinine Est GFR (CKD-EPI)AfAm Est GFR (CKD-EPI)NonAf POC Glucometer 238 265 Random Glucose Calcium Phosphorus Magnesium COVID-19 ([place]) Not detected 09/16/19 09/16/19 09/16/19 08:35 08:35 13:51 WBC 11.2 H RBC 4.29 Hgb 13.7 Hct 41.2 MCV 96.1 H MCH 31.9 MCHC 33.3 RDW 14.0 Plt Count 248 MPV 9.1 Sodium 139 Potassium 4.1 Chloride 106 Carbon Dioxide 21 Anion Gap 11 BUN 16.3 Creatinine 1.1 Est GFR (CKD-EPI)AfAm 98.87 Est GFR (CKD-EPI)NonAf 85.31 POC Glucometer 266 Random Glucose 242 H Calcium 8.8 Phosphorus 2.4 L Magnesium 2.0 COVID-19 ([place]) Active Medications Generic Name Dose Route Start Last Admin Trade Name Freq PRN Reason Stop Dose Admin Acetaminophen 650 mg 09/16/19 00:00 09/16/19 00:24 Tylenol - PO 650 mg Q6H PRN Administration Fever Or Pain Sodium Chloride 1,000 mls @ 100 mls/hr 09/15/19 02:00 09/16/19 09:35 Normal Saline - IV 100 mls/hr ASDIR ANDI Administration Erythromycin Lactobionate 250 100 mls @ 100 mls/hr 09/16/19 16:30 09/16/19 17:29 mg/ Sodium Chloride IVPB 100 mls/hr TIDAC ANDI Administration Insulin Aspart 1 vial 09/16/19 11:00 09/16/19 16:40 Novolog Vial Sliding Scale - SQ Not Given ACHS [facility] Protocol Ondansetron HCl 4 mg 09/15/19 17:25 09/16/19 16:48 Zofran Injection IVPUSH 4 mg Q8H PRN Administration NAUSEA Pantoprazole Sodium 40 mg 09/15/19 10:00 09/16/19 09:35 Protonix Iv IVPUSH 40 mg DAILY ANDI Administration ASSESSMENT/PLAN: Jeannine is a 38M w a h/o of marijuana dependency , IDDM, and htn who presents to the ed for intractable non bloody bilious vomiting for 1 day with abdominal pain. #Gastroparesis - nausea/vomiting - patient endorses prior relief of symptoms with erythromycin at [facility] - switched to IV erythromycin pre-prandial - patient lethargic - will monitor electrolytes, anion gap, cbc - Patient return from US of abdomen - no significant pathology noted - patient will be given reglan post prandial - protonix 40mg daily #DVT prophylaxis: Not indicated Visit type - Emergency Visit Emergency Visit: Yes ED Registration Date: 09/14/19 Care time: The patient presented to the Emergency Department on the above date and was hospitalized for further evaluation of their emergent condition. - New Patient This patient is new to me today: No - Critical Care Critical Care patient: No - Discharge Referral Referred to [facility] Med P.C.: No ATTENDING PHYSICIAN STATEMENT I saw and evaluated the patient. I reviewed the resident's note and discussed the case with the resident. I agree with the resident's findings and plan as documented. SUBJECTIVE: OBJECTIVE: ASSESSMENT AND PLAN:
[2019-09-16] MEDS ORDERED: INSULIN (NOVOLOG) ASPART 100 UNITS/ML 10ML VIAL ONE (22:33)
[2019-09-17] MEDS: INSULIN SLIDING SCALE (NOVOLOG) 1 VIAL SQ SCH ×4 (06:58→22:00)
[2019-09-17 07:42] LABS: HEMATOCRIT 42.2 % (35.4-49); HEMOGLOBIN 14.1 GM/dL (11.7-16.9); MCH 31.9 pg (25.7-33.7); MCHC 33.5 g/dl (32.0-35.9); MEAN CELL VOLUME 95.2 fl (80-96); MEAN PLT VOLUME 8.6 fl (7.5-11.1); PLATELET COUNT 250 K/MM3 (134-434); RBC 4.43 M/mm3 (4.00-5.60); RDW 13.7 % (11.9-15.9); WHITE BLOOD COUNT 11.5 K/mm3 (4.0-10.0)
[2019-09-17 08:00] LABS: CALCIUM 8.8 mg/dL (8.5-10.1); MAGNESIUM 1.9 mg/dL (1.8-2.4); PHOSPHOROUS 2.1 mg/dL (2.5-4.9); POTASSIUM 3.6 mmol/L (3.5-5.1)
[2019-09-17] MEDS: SODIUM CHLORIDE 1,000 ML IV SCH (09:18)
[2019-09-17] MEDS: ERYTHROMYCIN INJECTION - 250 MG in SODIUM CHLORIDE 100 ML IVPB SCH ×2 (09:19→12:14)
[2019-09-17] MEDS: PANTOPRAZOLE SODIUM 40 MG VIAL IVPUSH SCH (09:20)
[2019-09-17] MEDS: ONDANSETRON 4 MG/2 ML VIAL IVPUSH PRN (09:22)
[2019-09-17] MEDS ORDERED: SODIUM CHLORIDE IVPB SCH (12:15)
[2019-09-17] MEDS ORDERED: ERYTHROMYCIN IVPB SCH (12:15)
--- NOTE | 2019-09-17 12:19 | PN.GI ---
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 Dr. Frye in [place] after his recent admission here. He states that she told him he has gastroparesis and did not add medications to his regimen. - Objective Vital Signs: Vital Signs Temperature 98.4 F 09/17/19 10:00 Pulse Rate 70 09/17/19 10:00 Respiratory Rate 18 09/17/19 10:00 Blood Pressure 154/85 09/17/19 10:00 O2 Sat by Pulse Oximetry (%) 100 09/17/19 10:00 Constitutional: Calm Eyes: No: Sclera Icterus Cardiovascular: Yes: Regular Rate and Rhythm Respiratory: Yes: CTA Bilaterally Gastrointestinal Inspection: No: Distention ...Auscultate: Yes: Normoactive Bowel Sounds ...Palpate: Yes: Soft. No: Hepatomegaly, Splenomegaly, Tenderness ...Percussion: No: Tympanitic Edema: No (No LE edema) Neurological: Yes: Alert Labs: CBC, BMP 09/17/19 06:56 09/17/19 06:56 Hepatic Panel Total Bilirubin 0.7 mg/dL (0.2-1) 09/15/19 06:40 AST 16 U/L (15-37) 09/15/19 06:40 ALT 22 U/L (13-61) 09/15/19 06:40 Alkaline Phosphatase 76 U/L (45-117) 09/15/19 06:40 Albumin 3.7 g/dl (3.4-5.0) 09/15/19 06:40 Problem List - Problems (1) Diabetic gastroparesis Assessment/Plan: With question of cannibios induced hyperemesis Continue erythromycin: change to lower dose of 50mg IVPB Q 8 hours. 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
[2019-09-17] MEDS: DEXTROSE 5%-NORMAL SALINE 1,000 ML IV SCH (16:55)
[2019-09-17] MEDS ORDERED: ACETAMINOPHEN 1000 MG/100 ML VIAL (NON FORMULARY) IVPB ONE (16:57)
--- NOTE | 2019-09-17 17:02 | PN ---
Teaching Attending Note Name of Resident: Rajat Barajas ATTENDING PHYSICIAN STATEMENT I saw and evaluated the patient. I reviewed the resident's note and discussed the case with the resident. I agree with the resident's findings and plan as documented. SUBJECTIVE: Seen and examined at bedside. Still having significant nausea and vomiting. Per GI decrease erythromycin dose to 50 mg every 8 hours. If patient does not improve by tomorrow will transfer to a tertiary care center. OBJECTIVE: Last Vital Signs Temp Pulse Resp BP Pulse Ox 98.9 F 75 18 151/86 100 09/17/19 14:38 09/17/19 14:38 09/17/19 14:38 09/17/19 14:38 09/17/19 14:38 PE: Per resident note Labs/Imaging: reviewed ASSESSMENT AND PLAN: 38-year-old male with past medical history of hypertension, insulin-dependent diabetes, gastroparesis, marijuana dependency presents to the ED with nausea vomiting and abdominal pain x1 day. Admitted for intractable nausea and vomiting in the setting of gastroparesis #Gastroparesis with nausea and vomiting Abdominal ultrasound unremarkable -decrease erythromycin dose to 50mg q8h Zofran PRN GI consulted: appreradha recs Protonix -if patient does not improve by tomorrow will transfer to a tertiary care center. #DVT prophylaxis: Not indicated
[2019-09-17] MEDS: SODIUM CHLORIDE IVPB SCH (17:03)
[2019-09-17] MEDS: ERYTHROMYCIN IVPB SCH (17:03)
[2019-09-17] MEDS: INSULIN (LEVEMIR) 100 UNITS/ML UNITS SQ SCH (22:02)
[2019-09-18] MEDS: ERYTHROMYCIN IVPB SCH ×3 (01:33→17:07)
[2019-09-18] MEDS: SODIUM CHLORIDE IVPB SCH ×3 (01:33→17:07)
[2019-09-18] MEDS: INSULIN SLIDING SCALE (NOVOLOG) 1 VIAL SQ SCH ×4 (06:24→21:24)
[2019-09-18] MEDS: INSULIN (LEVEMIR) 100 UNITS/ML UNITS SQ SCH ×2 (06:25→21:27)
[2019-09-18] MEDS ORDERED: INSULIN (NOVOLOG) ASPART 100 UNITS/ML 10ML VIAL ONE ×2 (06:43→10:10)
--- NOTE | 2019-09-18 06:48 | PN ---
Physical Exam: SUBJECTIVE: Patient seen and examined at bedside. Patient feels slightly better able to tolerate small amounts of liquids. Patient still endorses vomiting and nausea. OBJECTIVE: Vital Signs Period Temp Pulse Resp BP Sys/Quiñonez Pulse Ox Last 24 Hr 98.4 F-99.5 F 66-77 18-18 140-170/74-97 99-100 GENERAL: The patient is awake, alert, and fully oriented, in mild distress. NECK: Trachea midline, full range of motion, supple. LUNGS: Breath sounds equal, clear to auscultation bilaterally, no wheezes, no crackles, no accessory muscle use. HEART: Regular rate and rhythm, S1, S2 without murmur, rub or gallop. ABDOMEN: EPIGASTRIC TENDERNESS EXTREMITIES: 2+ pulses, warm, well-perfused, no edema. SKIN: Warm, dry, normal turgor, no rashes or lesions noted Laboratory Results - last 24 hr 09/17/19 09/17/19 09/17/19 06:48 06:56 06:56 WBC 11.5 H RBC 4.43 Hgb 14.1 Hct 42.2 MCV 95.2 MCH 31.9 MCHC 33.5 RDW 13.7 Plt Count 250 MPV 8.6 Sodium 139 Potassium 3.6 Chloride 105 Carbon Dioxide 24 Anion Gap 10 BUN 15.0 Creatinine 1.0 Est GFR (CKD-EPI)AfAm 110.94 Est GFR (CKD-EPI)NonAf 95.72 POC Glucometer 189 Random Glucose 202 H Calcium 8.8 Phosphorus 2.1 L Magnesium 1.9 09/17/19 09/17/19 09/18/19 16:59 21:58 01:31 WBC RBC Hgb Hct MCV MCH MCHC RDW Plt Count MPV Sodium Potassium Chloride Carbon Dioxide Anion Gap BUN Creatinine Est GFR (CKD-EPI)AfAm Est GFR (CKD-EPI)NonAf POC Glucometer 212 225 142 Random Glucose Calcium Phosphorus Magnesium 09/18/19 06:18 WBC RBC Hgb Hct MCV MCH MCHC RDW Plt Count MPV Sodium Potassium Chloride Carbon Dioxide Anion Gap BUN Creatinine Est GFR (CKD-EPI)AfAm Est GFR (CKD-EPI)NonAf POC Glucometer 170 Random Glucose Calcium Phosphorus Magnesium Active Medications Generic Name Dose Route Start Last Admin Trade Name Freq PRN Reason Stop Dose Admin Acetaminophen 650 mg 09/16/19 00:00 09/16/19 00:24 Tylenol - PO 650 mg Q6H PRN Administration Fever Or Pain Sodium Chloride 1,000 mls @ 100 mls/hr 09/15/19 02:00 09/17/19 09:18 Normal Saline - IV 100 mls/hr ASDIR ANDI Administration Erythromycin Lactobionate 50 50 mls @ 150 mls/hr 09/17/19 12:27 09/18/19 01:33 mg/ Sodium Chloride IVPB 09/18/19 18:19 150 mls/hr Q8H-IV ANDI Administration Dextrose/Sodium Chloride 1,000 mls @ 42 mls/hr 09/17/19 16:15 09/17/19 16:55 D5-Ns - IV 42 mls/hr ASDIR ANDI Administration Insulin Aspart 1 vial 09/16/19 11:00 09/18/19 06:24 Novolog Vial Sliding Scale - SQ 2 units ACHS ANDI Administration Protocol Insulin Detemir 5 units 09/17/19 22:00 09/18/19 06:25 Levemir Vial SQ 5 units 0700,2200 ANDI Administration Pantoprazole Sodium 40 mg 09/15/19 10:00 09/17/19 09:20 Protonix Iv IVPUSH 40 mg DAILY ANDI Administration ASSESSMENT/PLAN: Jeannine is a 38M w a h/o of marijuana dependency , IDDM, and htn who presents to the ed for intractable non bloody bilious vomiting for 1 day with abdominal pain. #Gastroparesis - nausea/vomiting - decrease erythromycin dose to 50mg q8h - will transfer if symtpms do not resolve - patient lethargic - will monitor electrolytes, anion gap, cbc - Patient return from US of abdomen - no significant pathology noted - protonix 40mg daily #DVT prophylaxis: Not indicated Visit type - Emergency Visit Emergency Visit: Yes ED Registration Date: 09/14/19 Care time: The patient presented to the Emergency Department on the above date and was hospitalized for further evaluation of their emergent condition. - New Patient This patient is new to me today: No - Critical Care Critical Care patient: No - Discharge Referral Referred to [facility] Med P.C.: No ATTENDING PHYSICIAN STATEMENT I saw and evaluated the patient. I reviewed the resident's note and discussed the case with the resident. I agree with the resident's findings and plan as documented. SUBJECTIVE: OBJECTIVE: ASSESSMENT AND PLAN:
[2019-09-18 08:20] LABS: HEMATOCRIT 42.5 % (35.4-49); HEMOGLOBIN 14.7 GM/dL (11.7-16.9); MCH 32.3 pg (25.7-33.7); MCHC 34.5 g/dl (32.0-35.9); MEAN CELL VOLUME 93.6 fl (80-96); MEAN PLT VOLUME 8.3 fl (7.5-11.1); PLATELET COUNT 260 K/MM3 (134-434); RBC 4.54 M/mm3 (4.00-5.60); RDW 13.4 % (11.9-15.9); WHITE BLOOD COUNT 9.8 K/mm3 (4.0-10.0)
[2019-09-18 08:45] LABS: BLOOD UREA NITROGEN 12.8 mg/dL (7-18); CALCIUM 8.6 mg/dL (8.5-10.1); MAGNESIUM 2.1 mg/dL (1.8-2.4); PHOSPHOROUS 2.3 mg/dL (2.5-4.9); POTASSIUM 3.9 mmol/L (3.5-5.1)
[2019-09-18] MEDS: PANTOPRAZOLE SODIUM 40 MG VIAL IVPUSH SCH (10:18)
[2019-09-18] MEDS: SODIUM CHLORIDE 1,000 ML IV SCH (10:22)
--- NOTE | 2019-09-18 13:47 | PN ---
Physical Exam: SUBJECTIVE: Patient seen and examined at bedside. Patient reports improvement in nausea and vomiting. Reports that he feels the erythromycin and tylenol are helping his symptoms. patient still endorses bilious vomiting. OBJECTIVE: Vital Signs Period Temp Pulse Resp BP Sys/Quiñonez Pulse Ox Last 24 Hr 98.3 F-99.5 F 65-77 18-18 138-170/74-97 99-100 GENERAL: The patient is awake, alert, and fully oriented, in no acute distress. LUNGS: Breath sounds equal, clear to auscultation bilaterally, no wheezes, no crackles, no accessory muscle use. HEART: Regular rate and rhythm, S1, S2 without murmur, rub or gallop. ABDOMEN: epigastric tenderness EXTREMITIES: 2+ pulses, warm, well-perfused, no edema. Laboratory Results - last 24 hr 09/17/19 09/17/19 09/18/19 16:59 21:58 01:31 WBC RBC Hgb Hct MCV MCH MCHC RDW Plt Count MPV Sodium Potassium Chloride Carbon Dioxide Anion Gap BUN Creatinine Est GFR (CKD-EPI)AfAm Est GFR (CKD-EPI)NonAf POC Glucometer 212 225 142 Random Glucose Calcium Phosphorus Magnesium 09/18/19 09/18/19 09/18/19 06:18 07:35 07:35 WBC 9.8 RBC 4.54 Hgb 14.7 Hct 42.5 MCV 93.6 MCH 32.3 MCHC 34.5 RDW 13.4 Plt Count 260 MPV 8.3 Sodium 136 Potassium 3.9 Chloride 105 Carbon Dioxide 28 Anion Gap 4 L BUN 12.8 Creatinine 1.0 Est GFR (CKD-EPI)AfAm 110.94 Est GFR (CKD-EPI)NonAf 95.72 POC Glucometer 170 Random Glucose 189 H Calcium 8.6 Phosphorus 2.3 L Magnesium 2.1 09/18/19 10:28 WBC RBC Hgb Hct MCV MCH MCHC RDW Plt Count MPV Sodium Potassium Chloride Carbon Dioxide Anion Gap BUN Creatinine Est GFR (CKD-EPI)AfAm Est GFR (CKD-EPI)NonAf POC Glucometer 171 Random Glucose Calcium Phosphorus Magnesium Active Medications Generic Name Dose Route Start Last Admin Trade Name Freq PRN Reason Stop Dose Admin Acetaminophen 650 mg 09/16/19 00:00 09/16/19 00:24 Tylenol - PO 650 mg Q6H PRN Administration Fever Or Pain Sodium Chloride 1,000 mls @ 100 mls/hr 09/15/19 02:00 09/18/19 10:22 Normal Saline - IV Not Given ASDIR ANDI Erythromycin Lactobionate 50 50 mls @ 150 mls/hr 09/17/19 12:27 09/18/19 10:17 mg/ Sodium Chloride IVPB 09/18/19 18:19 150 mls/hr Q8H-IV ANDI Administration Dextrose/Sodium Chloride 1,000 mls @ 42 mls/hr 09/17/19 16:15 09/17/19 16:55 D5-Ns - IV 42 mls/hr ASDIR ANDI Administration Insulin Aspart 1 vial 09/16/19 11:00 09/18/19 11:42 Novolog Vial Sliding Scale - SQ 2 units ACHS ANDI Administration Protocol Insulin Detemir 5 units 09/17/19 22:00 09/18/19 06:25 Levemir Vial SQ 5 units 0700,2200 ANDI Administration Pantoprazole Sodium 40 mg 09/15/19 10:00 09/18/19 10:18 Protonix Iv IVPUSH 40 mg DAILY ANDI Administration ASSESSMENT/PLAN: Jeannine is a 38M w a h/o of marijuana dependency , IDDM, and htn who presents to the ed for intractable non bloody bilious vomiting for 1 day with abdominal pain. #Gastroparesis - nausea/vomiting improving on erythromycin dose to 50mg q8h - will transfer if symptoms do not resolve - patient lethargic - will monitor electrolytes, anion gap, cbc - Patient return from US of abdomen - no significant pathology noted - protonix 40mg daily #DVT prophylaxis: Not indicated Visit type - Emergency Visit Emergency Visit: Yes ED Registration Date: 09/14/19 Care time: The patient presented to the Emergency Department on the above date and was hospitalized for further evaluation of their emergent condition. - New Patient This patient is new to me today: No - Critical Care Critical Care patient: No - Discharge Referral Referred to [facility] Med P.C[facility] No ATTENDING PHYSICIAN STATEMENT I saw and evaluated the patient. I reviewed the resident's note and discussed the case with the resident. I agree with the resident's findings and plan as documented. SUBJECTIVE: OBJECTIVE: ASSESSMENT AND PLAN:
[2019-09-18] MEDS ORDERED: BISACODYL 10 MG SUPP.RECT PR ONE (13:48)
--- NOTE | 2019-09-18 14:02 | PN.GI ---
GI Progress Note Subjective: No acute events Appeared to be sleeping comfortably Only drinking the apple juice of his clear liquid trays. Was able to tolerate them without vomiting No diarrhea - Objective Vital Signs: Vital Signs Temperature 98.3 F 09/18/19 10:00 Pulse Rate 65 09/18/19 10:00 Respiratory Rate 18 09/18/19 10:00 Blood Pressure 138/78 09/18/19 10:00 O2 Sat by Pulse Oximetry (%) 99 09/18/19 10:00 Constitutional: Calm Eyes: No: Sclera Icterus Cardiovascular: Yes: Regular Rate and Rhythm. No: Murmur Respiratory: Yes: CTA Bilaterally Gastrointestinal Inspection: No: Distention ...Auscultate: Yes: Normoactive Bowel Sounds ...Palpate: Yes: Soft. 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
--- NOTE | 2019-09-18 14:14 | PN ---
Teaching Attending Note Name of Resident: Rajat Barajas ATTENDING PHYSICIAN STATEMENT I saw and evaluated the patient. I reviewed the resident's note and discussed the case with the resident. I agree with the resident's findings and plan as documented. SUBJECTIVE: Seen and examined at bedside. Reports pain and nausea slightly improved over the last 24 hours. Tolerating some juice, but still vomiting. We will continue trial of erythromycin for 24 more hours. OBJECTIVE: Last Vital Signs Temp Pulse Resp BP Pulse Ox 98.3 F 65 18 138/78 99 09/18/19 10:00 09/18/19 10:00 09/18/19 10:00 09/18/19 10:00 09/18/19 10:00 PE: Per resident note Labs/Imaging: reviewed ASSESSMENT AND PLAN: 38-year-old male with past medical history of hypertension, insulin-dependent diabetes, gastroparesis, marijuana dependency presents to the ED with nausea vomiting and abdominal pain x1 day. Admitted for intractable nausea and vomiting in the setting of gastroparesis #Gastroparesis with nausea and vomiting Abdominal ultrasound unremarkable -decrease erythromycin dose to 50mg q8h Zofran PRN GI consulted: appreicate recs Protonix -if patient does not improve by tomorrow will transfer to a tertiary care center. #Diabetes mellitus with hyperglycemia Increase Levemir to 6 units twice daily (home dose 20 mg nightly) Insulin sliding scale #DVT prophylaxis: Not indicated
[2019-09-18] MEDS ORDERED: ACETAMINOPHEN 1000 MG/100 ML VIAL (NON FORMULARY) IVPB ONE ×2 (14:30→20:47)
[2019-09-18] MEDS: DEXTROSE 5%-NORMAL SALINE 1,000 ML IV SCH ×2 (15:44→17:07)
[2019-09-19] MEDS ORDERED: PT OWN MED DRAWER 7, Y5N ONE ×3 (01:20→10:13)
[2019-09-19] MEDS: ERYTHROMYCIN IVPB SCH ×3 (02:40→18:08)
[2019-09-19] MEDS: SODIUM CHLORIDE IVPB SCH ×3 (02:40→18:08)
[2019-09-19] MEDS ORDERED: INSULIN (NOVOLOG) ASPART 100 UNITS/ML 10ML VIAL ONE ×2 (05:20→20:53)
[2019-09-19] MEDS: INSULIN (LEVEMIR) 100 UNITS/ML UNITS SQ SCH ×2 (06:38→21:09)
[2019-09-19] MEDS: INSULIN SLIDING SCALE (NOVOLOG) 1 VIAL SQ SCH ×5 (06:39→21:10)
[2019-09-19 07:46] LABS: HEMATOCRIT 43.9 % (35.4-49); HEMOGLOBIN 15.2 GM/dL (11.7-16.9); MCH 32.5 pg (25.7-33.7); MCHC 34.5 g/dl (32.0-35.9); MEAN CELL VOLUME 94.2 fl (80-96); MEAN PLT VOLUME 8.9 fl (7.5-11.1); PLATELET COUNT 265 K/MM3 (134-434); RBC 4.66 M/mm3 (4.00-5.60); RDW 13.5 % (11.9-15.9)
[2019-09-19 08:08] LABS: BLOOD UREA NITROGEN 12.2 mg/dL (7-18); CALCIUM 8.5 mg/dL (8.5-10.1); MAGNESIUM 2.1 mg/dL (1.8-2.4); POTASSIUM 3.2 mmol/L (3.5-5.1)
[2019-09-19] MEDS ORDERED: POTASSIUM CHLORIDE TABS 20 MEQ TABLET.ER (FP) PO ONE (08:17)
[2019-09-19] MEDS: POTASSIUM CHLORIDE ORAL LIQUID 20 MEQ/15 ML PO SCH ×2 (10:18→21:10)
[2019-09-19] MEDS: PANTOPRAZOLE SODIUM 40 MG VIAL IVPUSH SCH (10:18)
[2019-09-19] MEDS: BISACODYL 10 MG SUPP.RECT PR SCH (10:18)
[2019-09-19] MEDS ORDERED: ACETAMINOPHEN 1000 MG/100 ML VIAL (NON FORMULARY) IVPB ONE (13:16)
[2019-09-19] MEDS: DEXTROSE 5%-NORMAL SALINE 1,000 ML IV SCH (17:38)
[2019-09-20] MEDS: SODIUM CHLORIDE IVPB SCH ×2 (01:01→10:59)
[2019-09-20] MEDS: ERYTHROMYCIN IVPB SCH ×2 (01:01→10:59)
[2019-09-20] MEDS: ACETAMINOPHEN 325 MG TABLET (FP) PO PRN (01:45)
[2019-09-20] MEDS ORDERED: ACETAMINOPHEN 1000 MG/100 ML VIAL (NON FORMULARY) IVPB ONE (06:29)
[2019-09-20] MEDS: INSULIN (LEVEMIR) 100 UNITS/ML UNITS SQ SCH (06:37)
[2019-09-20] MEDS: INSULIN SLIDING SCALE (NOVOLOG) 1 VIAL SQ SCH ×2 (06:38→11:00)
[2019-09-20] MEDS ORDERED: INSULIN (NOVOLOG) ASPART 100 UNITS/ML 10ML VIAL ONE ×2 (06:59→11:14)
[2019-09-20] MEDS ORDERED: INSULIN (LEVEMIR) 100 UNITS/ML UNITS SQ ONE (06:59)
[2019-09-20] MEDS: PANTOPRAZOLE SODIUM 40 MG VIAL IVPUSH SCH (10:05)
[2019-09-20] MEDS: BISACODYL 10 MG SUPP.RECT PR SCH (10:05)
[2019-09-20 12:16] VITALS: BP 124/83; PULSE 84; TEMP 98.9
--- NOTE | 2019-09-20 15:32 | DS ---
Physical Exam: SUBJECTIVE: Patient seen and examined at bedside. Patient reports feeling significant improvement. Denies episodes of emisis. Reports PO tylenol upset his stomach. Is able to tolerate soft diet of banana and apple sauce. Patient agrees to follow up with motility specialist Dr. Cunningham OBJECTIVE: Vital Signs Period Temp Pulse Resp BP Sys/Quiñonez Pulse Ox Last 24 Hr 98.3 F-98.9 F 65-84 16-18 124-148/83-90 100-100 PHYSICAL EXAM GENERAL: The patient is awake, alert, and fully oriented, in no acute distress. LUNGS: Breath sounds equal, clear to auscultation bilaterally, no wheezes, no crackles, no accessory muscle use. HEART: Regular rate and rhythm, S1, S2 without murmur, rub or gallop. ABDOMEN: Soft, nontender, nondistended, normoactive bowel sounds, no guarding, no rebound, no hepatosplenomegaly, no masses. EXTREMITIES: 2+ pulses, warm, well-perfused, no edema. SKIN: Warm, dry, normal turgor, no rashes or lesions noted. LABS Laboratory Results - last 24 hr 09/19/19 09/19/19 09/20/19 17:28 21:07 06:17 POC Glucometer 156 128 192 09/20/19 10:55 POC Glucometer 216 HOSPITAL COURSE: Date of Admission:09/14/19 Jeannine horowitz a 38M w a h/o of IDDM, htn, and marijuana use presented to the ED for intractable non bloody bilious vomiting for 1 day with abdominal pain. The patient was admitted for gastroparesis and abdominal pain. The patient had been treated with fluid and K+ replenishment for multiple episodes of bilious non bloody vomiting per day. Abdominal CT reveals evidence of thickened descending colon suggestive of colitis and abdominal ultrasound revealed no acute patholog y. The patient reported minimal relief with zofran and reglan. Prior admission for gastroparesis reveals improvement of symptoms on erythromycin. Patient was placed on erythromycin for 5 days TID. Patient reports improvement of symptoms and began tolerating clear liquids. Patient is currently able to tolerate soft diet and will be discharge on follow up with outpatient GI Motility specialist. Date of Discharge: 09/20/19 Minutes to complete discharge: 40 Discharge Summary Problems reviewed: Yes Reason For Visit: GASTROPARESIS,INTRACTABLE VOMITING WITH NAUSEA Current Active Problems Diabetic gastroparesis (Chronic) Condition: Good - Instructions Diet, Activity, Other Instructions: YOUR VISIT: You were admitted to the hospital for abdominal pain and persistent vomiting. While you were here we evaluated you with lab work, blood work, and imaging including x-rays of your chest and an ultrasound of your abdomen. Your symptoms were likely related to how diabetes affects the nerves of the gastrointestinal system. You were evaluated by specialists during your hospital course. You were treated with fluids, anti-nausea medication, and erythromycin. You showed improvement in your symptoms and you are were medically cleared for discharge. You will need to follow up with your print shop manager specializing in gastric motility for further treatment of your gastroparesis. MEDICATIONS: Please take erythromycin 250mg three times daily(TAKE BEFORE MEALS) for 4 days. (09/21/2019 - 10/04/2019) Please take your previous medications as prescribed. REFERRALS: - Please follow up with your primary care doctor within 1 week of discharge. - Please follow up with the MOTILITY SPECIALIST for your gastroparesis within 1 week of discharge. (Octavio Cruz) MEALS: Please eat 4-5 small meals per day. Please avoid carbonated drinks. Please add Ensure or other supplemental drinks to your diet to maintain an adequate daily calorie intake. Remember to eat slowly and chew your food thoroughly. ADDITIONAL INFORMATION: - You are being discharged home Please return to the emergency department if you experience worsening abdominal pain, increased frequency, bloody or worsening vomiting fevers, chills or shortness of breath. Referrals: Giovanni Cunningham MD [Non Staff, Medical] - Disposition: HOME - Home Medications Comprehensive Discharge Medication List: Ambulatory Orders Insulin Glargine,Hum.rec.anlog [Basaglar Kwikpen U-100] 20 unit SQ HS 08/12/19 Metoclopramide HCl [Reglan -] 10 mg PO DAILY 09/15/19 Ondansetron [Zofran -] 4 mg PO TID 09/15/19 Pantoprazole Sodium [Protonix] 40 mg PO DAILY 09/15/19 Sildenafil Citrate [Viagra] 50 mg PO DAILY 09/15/19 Erythromycin Base [Erythromycin] 250 mg PO TID #12 tablet 09/20/19 This patient is new to me today: No Emergency Visit: Yes ED Registration Date: 09/14/19 Care time: The patient presented to the Emergency Department on the above date and was hospitalized for further evaluation of their emergent condition. Critical Care patient: No - Discharge Referral Referred to [facility] No ATTENDING PHYSICIAN STATEMENT I saw and evaluated the patient. I reviewed the resident's note and discussed the case with the resident. I agree with the resident's findings and plan as documented. SUBJECTIVE: OBJECTIVE: ASSESSMENT AND PLAN:
--- NOTE | 2019-09-20 15:38 | PN ---
Teaching Attending Note Name of Resident: Rajat Barajas ATTENDING PHYSICIAN STATEMENT I saw and evaluated the patient. I reviewed the resident's note and discussed the case with the resident. I agree with the resident's findings and plan as documented. SUBJECTIVE: pt seen and examined OBJECTIVE: Last Vital Signs Temp Pulse Resp BP Pulse Ox 98.9 F 84 18 124/83 100 09/20/19 12:08 09/20/19 12:08 09/20/19 12:08 09/20/19 12:08 09/20/19 06:00 GENERAL: Awake, alert, and fully oriented, in no acute distress. HEENT: NC/AT, not p/c/j, pupils rrr, EOMI, neck supple LUNGS: Breath sounds equal, clear to auscultation bilaterally. No wheezes, and no crackles. No accessory muscle use. HEART: Regular rate and rhythm, normal S1 and S2 without murmur, rub or gallop. ABDOMEN: Soft, nontender, not distended, normoactive bowel sounds, no guarding, no rebound, no masses. No hepatomegaly or splenomegaly. MUSCULOSKELETAL: Normal range of motion at all joints. No bony deformities or tenderness. No CVA tenderness. UPPER EXTREMITIES: 2+ pulses, warm, well-perfused. No cyanosis. No clubbing. No peripheral edema. LOWER EXTREMITIES: 2+ pulses, warm, well-perfused. No calf tenderness. No peripheral edema. NEUROLOGICAL: Cranial nerves II-XII intact. Normal speech. Normal gait. PSYCHIATRIC: Cooperative. Good eye contact. Appropriate mood and affect. SKIN: Warm, dry, normal turgor, no rashes or lesions noted, normal capillary refill. CBCD WBC 10.0 K/mm3 (4.0-10.0) 09/19/19 06:25 RBC 4.66 M/mm3 (4.00-5.60) 09/19/19 06:25 Hgb 15.2 GM/dL (11.7-16.9) 09/19/19 06:25 Hct 43.9 % (35.4-49) 09/19/19 06:25 MCV 94.2 fl (80-96) 09/19/19 06:25 MCHC 34.5 g/dl (32.0-35.9) 09/19/19 06:25 RDW 13.5 % (11.9-15.9) 09/19/19 06:25 Plt Count 265 K/MM3 (134-434) 09/19/19 06:25 MPV 8.9 fl (7.5-11.1) 09/19/19 06:25 CMP Sodium 139 mmol/L (136-145) 09/19/19 06:25 Potassium 3.2 mmol/L (3.5-5.1) L 09/19/19 06:25 Chloride 103 mmol/L (98-107) 09/19/19 06:25 Carbon Dioxide 25 mmol/L (21-32) 09/19/19 06:25 Anion Gap 10 MMOL/L (8-16) 09/19/19 06:25 BUN 12.2 mg/dL (7-18) 09/19/19 06:25 Creatinine 1.0 mg/dL (0.55-1.3) 09/19/19 06:25 Calcium 8.5 mg/dL (8.5-10.1) 09/19/19 06:25 Total Bilirubin 0.7 mg/dL (0.2-1) 09/15/19 06:40 AST 16 U/L (15-37) 09/15/19 06:40 ALT 22 U/L (13-61) 09/15/19 06:40 Alkaline Phosphatase 76 U/L (45-117) 09/15/19 06:40 Total Protein 6.8 g/dl (6.4-8.2) 09/15/19 06:40 Albumin 3.7 g/dl (3.4-5.0) 09/15/19 06:40 Active Medications Acetaminophen (Tylenol -) 650 mg PO Q6H PRN PRN Reason: Fever Or Pain Last Admin: 09/20/19 01:45 Dose: 650 mg Documented by: Bisacodyl (Dulcolax Suppository -) 10 mg NC DAILY [facility] Last Admin: 09/20/19 10:05 Dose: Not Given Documented by: Dextrose/Sodium Chloride (D5-Ns -) 1,000 mls @ 42 mls/hr IV ASDIR [facility] Last Admin: 09/19/19 17:38 Dose: 42 mls/hr Documented by: Erythromycin Lactobionate 50 (mg/ Sodium Chloride) 50 mls @ 150 mls/hr IVPB Q8H [facility] Last Admin: 09/20/19 10:59 Dose: 150 mls/hr Documented by: Insulin Aspart (Novolog Vial Sliding Scale -) 1 vial SQ ACHS [facility]; Protocol Last Admin: 09/20/19 11:00 Dose: 4 units Documented by: Insulin Detemir (Levemir Vial) 6 units SQ 0700,2200 [facility] Last Admin: 09/20/19 06:37 Dose: 6 units Documented by: Pantoprazole Sodium (Protonix Iv) 40 mg IVPUSH DAILY [facility] Last Admin: 09/20/19 10:05 Dose: 40 mg Documented by: ASSESSMENT AND PLAN: 38-year-old male with past medical history of hypertension, insulin-dependent diabetes, gastroparesis, marijuana dependency presents to the ED with nausea vomiting and abdominal pain x1 day. Admitted for intractable nausea and vomiting in the setting of gastroparesis #Gastroparesis with nausea and vomiting Abdominal ultrasound unremarkable -on erythromycin GI consulted Protonix -tolerated diet DM #DVT prophylaxis: Not indicated discharge for outpatient f/u with GI motility specialist
== END 2019-09-20 17:36 | disposition home or self-care (01) | DRG 48 ==
LOC: JER 17:20 → JERBED 22:46 → J7W 09-15 04:14
PROVIDERS: ADMIT Internal Medicine; ATTEND Student in an Organized Health Care Education/Training Program
DX: E11.43 Type 2 diabetes mellitus with diabetic autonomic (poly)neuropathy (principal); K31.84 Gastroparesis; J45.909 Unspecified asthma, uncomplicated; R10.9 Unspecified abdominal pain; D72.829 Elevated white blood cell count, unspecified; E11.610 Type 2 diabetes mellitus with diabetic neuropathic arthropathy; I10 Essential (primary) hypertension; F12.20 Cannabis dependence, uncomplicated; K29.70 Gastritis, unspecified, without bleeding; E11.65 Type 2 diabetes mellitus with hyperglycemia; R11.2 Nausea with vomiting, unspecified; R63.0 Anorexia; Z68.24 Body mass index [BMI] 24.0-24.9, adult; Z79.4 Long term (current) use of insulin; Z11.59 Encounter for screening for other viral diseases
CPT/HCPCS: 36415; 76700-TC; 80048; 80053; 80307; 81003; 82962; 83690; 83735; 84100; 85025; 85027; 86850; 86900; 86901; 87040; 87086; 93005; 93010; 99285-25; J0131; U0003

== ENCOUNTER 2019-11-23 18:32 | Emergency (ER) | payer OTHER ==
[2019-11-23] MEDS ORDERED: METOCLOPRAMIDE HCL INJECTION 10 MG/2 ML VIAL IVPUSH ONE (18:35)
--- NOTE | 2019-11-23 18:35 | PDOC ---
Rapid Medical Evaluation Time Seen by Provider: 11/23/19 18:33 Medical Evaluation: Allergies Allergy/AdvReac Type Severity Reaction Status Date / Time Penicillins AdvReac Verified 06/30/19 15:00 11/23/19 18:33 39 year old male w pmhx of DMII and gastroparesis (uses medical marijuana) complaining of nasuea vomiting since yesterday. To many episodes to count. PE: TTP throughout abdomen actively vomiting Plan Labs antiemetics IVF Pt to precede to ED for further eval
[2019-11-23 18:36] VITALS: BMI 24.3
[2019-11-23] MEDS ORDERED: SODIUM CHLORIDE 0.9% 500 ML INFUS.BAG IV ONE (18:36)
--- OUTSIDE RECORDS SUMMARY | 2019-11-23 18:51 | XMS ---
:1980 Author Organization [facility] Care Team Providers Name Role Phone MD Uday Unavailable Unavailable ED STAFF PHYSICIAN Unavailable Unavailable EMILY GRANT Unavailable Unavailable RYAN Saldana Unavailable Unavailable Re-disclosure Warning The records that you are about to access may contain information from federally- assisted alcohol or drug abuse programs. If such information is present, then the following federally mandated warning applies: This information has been disclosed to you from records protected by federal confidentiality rules (42 CFR part 2). The federal rules prohibit you from making any further disclosure of this information unless further disclosure is expressly permitted by the written consent of the person to whom it pertains or as otherwise permitted by 42 CFR part 2. A general authorization for the release of medical or other information is NOT sufficient for this purpose. The Federal rules restrict any use of the information to criminally investigate or prosecute any alcohol or drug abuse patient.The records that you are about to access may contain highly sensitive health information, the redisclosure of which is protected by Article 27-F of the [facility] Public Health law. If you continue you may haveaccess to information: Regarding HIV / AIDS; Provided by facilities licensed or operated by the [facility] Office of Mental Health; or Provided by the [facility] Office for People With Developmental Disabilities. If such information is present, then the following [facility] mandated warning applies: This information has been disclosed to you from confidential records which are protected by state law. State law prohibits you from making any further disclosure of this information without the specific written consent of the person to whom it pertains, or as otherwise permitted by law. Any unauthorized further disclosure in violation of state law may result in a fine or correction sentence or both. A general authorization for the release of medical or other information is NOT sufficient authorization for further disclosure. Family History Family Member Family Member Family Member Date of Description Data Source(s) Name Gender Status Status Unknown Female Diagnosis 10/16/2006 [facility]GEN ([facility] 12:00:00 AM [facility] EDT [place]) Encounters Encounter Providers Location Date Indications Data Source(s ) Outpatient Attender: Vero 04/08/2019 [facility] Navdeep Frye MD 07:09:00 AM Hospital EST GASTROPARESIS Inpatient Attender: TEVIN ABARCA H-HAL5 03/27/2019 07:19:00 [facility] YAttender: RUDY DIAZ EST - 03/30/2019 [facility] FLASHOAttender: STAFF ED STAFF 03:30:00 PM EST PHYSICIANAdmitter: TEVIN ABARCA YReferrer: TEVIN ABARCA Y Patient discharged. Insurance Providers Payer name Policy type Policy ID Covered Covered libertarian's Policy P cindy / Coverage libertarian ID relationship to Root Inf ormation type root MVP MEDICAID [id number] SP [id number] O MEDICAID [id number] SP [id number] [place] [id number] PT [id number] 000 [facility] [id number] 01 [id number] 000 HEALTH ACUTE W [id number] O GARCIA [id number] 01 [id number] 000 HEALTH ACUTE MVP/HHP O [id number] 01 [id number] 000 MEDICAID [id number] SP [id number] Problems, Conditions, and Diagnoses Code Display Name Description Problem Type Effective Data Dates Source(s) R93.3 Abnormal findings R93.3 Diagnosis 04/08/2019 Navdeep lucas on diagnostic 07:09:00 AM Hospital imaging of other EST parts of digestive tract J45.909 Unspecified UNSPECIFIED Diagnosis 03/30/2019 [facility] asthma, ASTHMA, 03:30:00 PM Medical uncomplicated UNCOMPLICATED EST Center I10 Essential ESSENTIAL Diagnosis 03/30/2019 [facility] (primary) (PRIMARY) 03:30:00 PM Medical hypertension HYPERTENSION EST Center E78.5 Hyperlipidemia, HYPERLIPIDEMIA, Diagnosis 03/30/2019 [facility] unspecified UNSPECIFIED 03:30:00 PM Medical EST Center K31.84 Gastroparesis GASTROPARESIS Diagnosis 03/30/2019 [facility] 03:30:00 PM Medical EST Center T40.7X1A Poisoning by POISONING BY Diagnosis 03/30/2019 [facility] cannabis CANNABIS 03:30:00 PM Medical (derivatives), (DERIVATIVES), EST Center accidental ACCIDENTAL, INIT (unintentional), initial encounter E86.0 Dehydration DEHYDRATION Diagnosis 03/30/2019 [facility] calder[facility] 03:30:00 PM Medical EST Center E11.65 Type 2 diabetes TYPE 2 DIABETES Diagnosis 03/30/2019 [facility] Garcia mellitus with MELLITUS WITH 03:30:00 PM Medical hyperglycemia HYPERGLYCEMIA EST Center E11.43 Type 2 diabetes TYPE 2 DIABETES W Diagnosis 03/30/2019 [facility] mellitus with DIABETIC AUTONOMIC 03:30:00 PM Me dical diabetic autonomic (POLY)NEUROPATHY EST Center (poly)neuropathy Z87.891 Personal history PERSONAL HISTORY Diagnosis 03/30/2019 [facility] of nicotine OF NICOTINE 03:30:00 PM Medical dependence DEPENDENCE EST Center Z79.4 detention [employer] Diagnosis 03/30/2019 [facility] (current) use of (CURRENT) USE OF 03:30:00 PM M edical insulin INSULIN EST Center R11.10 Vomiting, VOMITING, Diagnosis 03/27/2019 [facility] unspecified UNSPECIFIED 07:19:00 AM Medical EST Center Results ID Date Data Source [id number] 09/15/2019 12:45:00 AM EDT [facility] Name Value Range Interpretation Description Data Sup porting Code Source(s) Document(s ) SARS [facility] coronavirus 2 RNA This lab was ordered by [facility] and reported by [facility]. ID Date Data Source [id number] 08/12/2019 09:08:00 AM EDT [facility] Name Value Range Interpretation Description Data Sup porting Code Source(s) Document(s ) SARS [facility] CORONAVIRUS 2 RNA This lab was ordered by [facility] and reported by [facility]. ID Date Data Source [id number] 06/30/2019 07:22:00 PM EDT [facility] Name Value Range Interpretation Description Data Sup porting Code Source(s) Document(s ) SARS [facility] CORONAVIRUS 2 RNA This lab was ordered by [facility] and reported by [facility]. ID Date Data Source HematologyRou.[id number] 03/30/2019 06:56:00 AM EST Ar[facility] 0500 Name Value Range Interpretation Description Data Sup porting Code Source(s) Document(s ) Leukocytes 4.4-11.0 <content [facility] [#/volume] in styleCode="Bold Jose Blood by ">White Blood Medical Automated count Cell Count Center </content>10.27 KCUMM<content styleCode="Ital ics"> (4.4-11.0 KCUMM)</content > Hemoglobin 13.5-17. <content [facility] [Mass/volume] in 5 styleCode="Bold Jose Blood ">Hemoglobin Medical </content>14.6 Center G/DL<content styleCode="Ital ics"> (13.5-17.5 G/DL)</content> Hematocrit 41.0-53. Below low normal <content [facility] [Volume 0 styleCode="Bold Jose Fraction] of ">Hematocrit Medical Blood by </content>40.8 Center Automated count % L<content styleCode="Ital ics"> (41.0-53.0 %)</content> Erythrocytes 4.4-5.9 <content [facility] [#/volume] in styleCode="Bold Jose Blood by ">Red Blood Medical Automated count Cell Count Center </content>4.55 MCUMM<content styleCode="Ital ics"> (4.4-5.9 MCUMM)</content > Erythrocyte mean 80.0-100 <content [facility] corpuscular .0 styleCode="Bold Jose volume [Entitic ">Mean Medical volume] by Corpuscular Center Automated count Volume </content>89.7 FL<content styleCode="Ital ics"> (80.0-100.0 FL)</content> Erythrocyte mean 32.0-37. <content [facility] corpuscular 0 styleCode="Bold Jose hemoglobin ">Mean Corpus. Medical concentration Hgb Center [Mass/volume] by Concentration Automated count (MCHC) </content>35.8 G/DL<content styleCode="Ital ics"> (32.0-37.0 G/DL)</content> Erythrocyte mean 26.0-34. <content [facility] corpuscular 0 styleCode="Bold Jose hemoglobin ">Mean Medical [Entitic mass] Corposcular Center by Automated Hemoglobin count </content>32.1 PG<content styleCode="Ital ics"> (26.0-34.0 PG)</content> Erythrocyte 11.5-14. <content [facility] distribution 5 styleCode="Bold Jose width [Ratio] by ">Red Cell Medical Automated count Distribution Center Width </content>11.9 %<content styleCode="Ital ics"> (11.5-14.5 %)</content> Neutrophils 36-66 <content [facility] [#/volume] in styleCode="Bold Jose Blood by ">Neutrophil Medical Automated count </content>64.5 Center %<content styleCode="Ital ics"> (36-66 %)</content> Platelets 130-400 <content [facility] [#/volume] in styleCode="Bold Jose Blood by ">Platelet Medical Automated count Count Center </content>271 KCUMM<content styleCode="Ital ics"> (130-400 KCUMM)</content > Platelet mean 8.0-11.0 <content [facility] volume [Entitic styleCode="Bold Jose volume] in Blood ">Mean Platelet Medical by Automated Volume Center count </content>9.9 FL<content styleCode="Ital ics"> (8.0-11.0 FL)</content> Lymphocytes 24.0-44. Below low normal <content [facility] [#/volume] in 0 styleCode="Bold Jose Blood by ">Lymphocyte Medical Automated count </content>22.2 Center % L<content styleCode="Ital ics"> (24.0-44.0 %)</content> UNK 1.0-4.8 <content [facility] styleCode="Bold Jose ">Lymphocyte Medical Count Center </content>2.28 KCUMM<content styleCode="Ital ics"> (1.0-4.8 KCUMM)</content > UNK 1.6-7.3 <content [facility] styleCode="Bold Jose ">Neutrophil Medical Count Center </content>6.63 KCUMM<content styleCode="Ital ics"> (1.6-7.3 KCUMM)</content > Eosinophils 0-5.0 <content [facility] [#/volume] in styleCode="Bold Jose Blood by ">Eosinophil Medical Automated count </content>0.3 Center %<content styleCode="Ital ics"> (0-5.0 %)</content> UNK 0.2-0.9 Above high <content [facility] normal styleCode="Bold Jose ">Monocyte Medical Count Center </content>1.27 KCUMM H<content styleCode="Ital ics"> (0.2-0.9 KCUMM)</content > Monocytes 3.0-10.0 Above high <content [facility] [#/volume] in normal styleCode="Bold Jose Blood by ">Monocyte Medical Automated count </content>12.4 Center % H<content styleCode="Ital ics"> (3.0-10.0 %)</content> UNK 0 <content [facility] styleCode="Bold Jose ">Nucleated Red Medical Blood Cell Center </content>0.0 /100<content styleCode="Ital ics"> (0 /100)</content> UNK 0.0-0.3 <content [facility] styleCode="Bold Jose ">Basophil Medical Count Center </content>0.02 KCUMM<content styleCode="Ital ics"> (0.0-0.3 KCUMM)</content > Basophils 0.0-1.0 <content [facility] [#/volume] in styleCode="Bold Jose Blood by ">Basophil Medical Automated count </content>0.2 Center %<content styleCode="Ital ics"> (0.0-1.0 %)</content> UNK 0.0-0.6 <content [facility] styleCode="Bold Jose ">Eosinophil Medical Count Center </content>0.03 KCUMM<content styleCode="Ital ics"> (0.0-0.6 KCUMM)</content > UNK < 1 <content [facility] styleCode="Bold Jose ">Immature Medical Granulocyte Center Ratio </content>0.4 %<content styleCode="Ital ics"> (< 1 %)</content> UNK 0.0 <content [facility] styleCode="Bold Jose ">Nucleated Red Medical Blood Cell Center Count </content>0.00 KCUMM<content styleCode="Ital ics"> (0.0 KCUMM)</content > UNK 0-0.1 <content [facility] styleCode="Bold Jose ">Immature Medical Granulocyte Center Count </content>0.04 KCUMM<content styleCode="Ital ics"> (0-0.1 KCUMM)</content > ID Date Data Source GFR(Creatinine).[id number] 03/30/2019 06:56:00 AM [facility] 0-0500 Name Value Range Interpretation Code Description Data Asmita rce(s) Supporting Document(s ) UNK > 60 <content [facility] styleCode="Bold"> Medical Cent er EGFR </content>122 GFR<content styleCode="Italic s"> (> 60 GFR)</content> ID Date Data Source CHMROUTINECCDA.[id number] 03/30/2019 06:56:00 AM [facility] -0500 Name Value Range Interpretation Description Data Sup porting Code Source(s) Document(s ) Magnesium 1.6-2.3 <content [facility] [Mass/volume] styleCode="Zulema Jose in Serum or d">Magnesium Medical Plasma </content>1.8 Center MG/DL<content styleCode="Marbella lics"> (1.6-2.3 MG/DL)</conten t> ID Date Data Source [facility].[id number] 03/30/2019 06:56:00 AM [facility] Name Value Range Interpretation Description Data Sup porting Code Source(s) Document(s ) Sodium 137-145 Below low normal <content [facility] [Moles/volume] styleCode="Zulema Graces in Serum or d">Sodium Medical Plasma </content>134 Center MEQ/L L<content styleCode="Marbella lics"> (137-145 MEQ/L)</conten t> Potassium 3.5-5.3 <content [facility] [Moles/volume] styleCode="Zulema Jose in Serum or d">Potassium Medical Plasma </content>3.7 Center MEQ/L<content styleCode="Marbella lics"> (3.5-5.3 MEQ/L)</conten t> UNK 9-20 <content [facility] styleCode="Zulema Jose d">BUN Medical </content>15 Center MG/DL<content styleCode="Marbella lics"> (9-20 MG/DL)</conten t> Chloride 98-107 <content [facility] [Moles/volume] styleCode="Zulema Jose in Serum or d">Chloride Medical Plasma </content>101 Center MEQ/L<content styleCode="Marbella lics"> (98-107 MEQ/L)</conten t> Carbon 22-30 <content [facility] dioxide, total styleCode="Zulema Graces [Moles/volume] d">Carbon Medical in Serum or Dioxide Center Plasma </content>27 MEQ/L<content styleCode="Marbella lics"> (22-30 MEQ/L)</conten t> Creatinine 0.5-1.3 <content [facility] [Mass/volume] styleCode="Zulema Jose in Serum or d">Creatinine Medical Plasma </content>0.9 Center MG/DL<content styleCode="Marbella lics"> (0.5-1.3 MG/DL)</conten t> UNK > 60 <content [facility] styleCode="Zulema Jose d">EGFR Medical </content>122 Center GFR<content styleCode="Marbella lics"> (> 60 GFR)</content> Glucose 74-106 <content [facility] [Mass/volume] styleCode="Zulema Jose in Serum or d">Glucose Medical Plasma </content>83 Center MG/DL<content styleCode="Marbella lics"> (74-106 MG/DL)</conten t> Calcium 8.4-10.2 <content [facility] [Mass/volume] styleCode="Zulema Jose in Serum or d">Calcium Medical Plasma </content>8.8 Center MG/DL<content styleCode="Marbella lics"> (8.4-10.2 MG/DL)</conten t> ID Date Data Source CHMROUTINECCDA.[id number] 03/29/2019 07:14:00 AM LORI Caban [facility] -0500 Name Value Range Interpretation Description Data Sup porting Code Source(s) Document(s ) UNK >= 1.0 <content [facility] styleCode="Zulema Jose d">AG Ratio Medical </content>1.3 Center <content styleCode="Marbella lics"> (>= 1.0 )</content> Protein 6.3-8.2 <content [facility] [Mass/volume] styleCode="Zulema Jose in Serum or d">Total Medical Plasma Protein Center </content>6.6 G/DL<content styleCode="Marbella lics"> (6.3-8.2 G/DL)</content > Magnesium 1.6-2.3 <content [facility] [Mass/volume] styleCode="Zulema Jose in Serum or d">Magnesium Medical Plasma </content>1.7 Center MG/DL<content styleCode="Marbella lics"> (1.6-2.3 MG/DL)</conten t> UNK 2.3-3.5 <content [facility] styleCode="Zulema Jose d">Globulin Medical </content>2.9 Center G/DL<content styleCode="Marbella lics"> (2.3-3.5 G/DL)</content > ID Date Data Source [facility].[id number] 03/29/2019 07:14:00 AM EST [facility] Name Value Range Interpretation Description Data Sup porting Code Source(s) Document(s ) Potassium 3.5-5.3 <content [facility] [Moles/volume] in styleCode="Bold"> Boo phs Serum or Plasma Potassium Medical </content>3.7 Center MEQ/L<content styleCode="Italic s"> (3.5-5.3 MEQ/L)</content> Carbon dioxide, 22-30 <content [facility] total styleCode="Bold"> Jose [Moles/volume] in Carbon Dioxide Medical Serum or Plasma </content>27 Center MEQ/L<content styleCode="Italic s"> (22-30 MEQ/L)</content> Chloride 98-107 <content [facility] [Moles/volume] in styleCode="Bold"> [facility] Serum or Plasma Chloride Medical </content>101 Center MEQ/L<content styleCode="Italic s"> (98-107 MEQ/L)</content> Sodium 137-145 <content [facility] [Moles/volume] in styleCode="Bold"> [facility] Serum or Plasma Sodium Medical </content>137 Center MEQ/L<content styleCode="Italic s"> (137-145 MEQ/L)</content> UNK 9-20 <content [facility] styleCode="Bold"> Jose BUN </content>16 Medical MG/DL<content Center styleCode="Italic s"> (9-20 MG/DL)</content> Glucose 74-106 Above high <content Saint [Mass/volume] in normal styleCode="Bold"> David hs Serum or Plasma Glucose Medical </content>168 Center MG/DL H<content styleCode="Italic s"> (74-106 MG/DL)</content> Creatinine 0.5-1.3 <content [facility] [Mass/volume] in styleCode="Bold"> David hs Serum or Plasma Creatinine Medical </content>0.9 Center MG/DL<content styleCode="Italic s"> (0.5-1.3 MG/DL)</content> Alanine 7-50 <content [facility] aminotransferase styleCode="Bold"> David hs [Enzymatic Alanine Medical activity/volume] Aminotransferase Center in Serum or Plasma (ALT) </content>40 IU/L<content styleCode="Italic s"> (7-50 IU/L)</content> Aspartate 17-59 <content [facility] aminotransferase styleCode="Bold"> David hs [Enzymatic Aspartate Medical activity/volume] Aminotransferase Center in Serum or Plasma (AST) </content>44 IU/L<content styleCode="Italic s"> (17-59 IU/L)</content> Calcium 8.4-10. <content [facility] [Mass/volume] in 2 styleCode="Bold"> David hs Serum or Plasma Calcium Medical </content>9.3 Center MG/DL<content styleCode="Italic s"> (8.4-10.2 MG/DL)</content> UNK > 60 <content [facility] styleCode="Bold"> Jose EGFR Medical </content>122 Center GFR<content styleCode="Italic s"> (> 60 GFR)</content> Albumin 3.5-5.0 <content [facility] [Mass/volume] in styleCode="Bold"> David hs Serum or Plasma Albumin Medical </content>3.7 Center G/DL<content styleCode="Italic s"> (3.5-5.0 G/DL)</content> Alkaline 38-126 <content [facility] phosphatase styleCode="Bold"> Jose [Enzymatic Alkaline Medical activity/volume] Phosphatase (ALP) Cente r in Serum or Plasma </content>76 IU/L<content styleCode="Italic s"> (38-126 IU/L)</content> Bilirubin.total 0.2-1.3 <content [facility] [Mass/volume] in styleCode="Bold"> David hs Serum or Plasma Bilirubin Total Medical </content>1.0 Center MG/DL<content styleCode="Italic s"> (0.2-1.3 MG/DL)</content> ID Date Data Source Liver 03/29/2019 07:14:00 AM EST [facility] Profile.[id number] Name Value Range Interpretation Description Data Sup porting Code Source(s) Document(s ) Aspartate 17-59 <content [facility] aminotransferase styleCode="Bold"> David hs [Enzymatic Aspartate Medical activity/volume] Aminotransferase Center in Serum or Plasma (AST) </content>44 IU/L<content styleCode="Italic s"> (17-59 IU/L)</content> Alanine 7-50 <content [facility] aminotransferase styleCode="Bold"> David hs [Enzymatic Alanine Medical activity/volume] Aminotransferase Center in Serum or Plasma (ALT) </content>40 IU/L<content styleCode="Italic s"> (7-50 IU/L)</content> Albumin 3.5-5.0 <content [facility] [Mass/volume] in styleCode="Bold"> David hs Serum or Plasma Albumin Medical </content>3.7 Center G/DL<content styleCode="Italic s"> (3.5-5.0 G/DL)</content> Bilirubin.total 0.2-1.3 <content [facility] [Mass/volume] in styleCode="Bold"> David hs Serum or Plasma Bilirubin Total Medical </content>1.0 Center MG/DL<content styleCode="Italic s"> (0.2-1.3 MG/DL)</content> Alkaline 38-126 <content [facility] phosphatase styleCode="Bold"> Jose [Enzymatic Alkaline Medical activity/volume] Phosphatase (ALP) Cente r in Serum or Plasma </content>76 IU/L<content styleCode="Italic s"> (38-126 IU/L)</content> ID Date Data Source HematologyRou.[id number] 03/29/2019 07:14:00 AM LORI Arsh [facility] 0500 Name Value Range Interpretation Description Data Sup porting Code Source(s) Document(s ) Leukocytes 4.4-11.0 Above high <content [facility] [#/volume] in normal styleCode="Bold Jose Blood by ">White Blood Medical Automated count Cell Count Center </content>14.39 KCUMM H<content styleCode="Ital ics"> (4.4-11.0 KCUMM)</content > Hematocrit 41.0-53. <content [facility] [Volume 0 styleCode="Bold Jose Fraction] of ">Hematocrit Medical Blood by </content>43.7 Center Automated count %<content styleCode="Ital ics"> (41.0-53.0 %)</content> Erythrocytes 4.4-5.9 <content [facility] [#/volume] in styleCode="Bold Jose Blood by ">Red Blood Medical Automated count Cell Count Center </content>4.81 MCUMM<content styleCode="Ital ics"> (4.4-5.9 MCUMM)</content > Hemoglobin 13.5-17. <content [facility] [Mass/volume] in 5 styleCode="Bold Jose Blood ">Hemoglobin Medical </content>15.3 Center G/DL<content styleCode="Ital ics"> (13.5-17.5 G/DL)</content> Erythrocyte mean 80.0-100 <content [facility] corpuscular .0 styleCode="Bold Jose volume [Entitic ">Mean Medical volume] by Corpuscular Center Automated count Volume </content>90.9 FL<content styleCode="Ital ics"> (80.0-100.0 FL)</content> Erythrocyte mean 26.0-34. <content [facility] corpuscular 0 styleCode="Bold Jose hemoglobin ">Mean Medical [Entitic mass] Corposcular Center by Automated Hemoglobin count </content>31.8 PG<content styleCode="Ital ics"> (26.0-34.0 PG)</content> Erythrocyte mean 32.0-37. <content [facility] corpuscular 0 styleCode="Bold Jose hemoglobin ">Mean Corpus. Medical concentration Hgb Center [Mass/volume] by Concentration Automated count (MCHC) </content>35.0 G/DL<content styleCode="Ital ics"> (32.0-37.0 G/DL)</content> Platelets 130-400 <content Saint [#/volume] in styleCode="Bold Jose Blood by ">Platelet Medical Automated count Count Center </content>303 KCUMM<content styleCode="Ital ics"> (130-400 KCUMM)</content > Neutrophils 36-66 Above high <content [facility] [#/volume] in normal styleCode="Bold Jose Blood by ">Neutrophil Medical Automated count </content>78.2 Center % H<content styleCode="Ital ics"> (36-66 %)</content> Erythrocyte 11.5-14. <content [facility] distribution 5 styleCode="Bold Jose width [Ratio] by ">Red Cell Medical Automated count Distribution Center Width </content>11.9 %<content styleCode="Ital ics"> (11.5-14.5 %)</content> Platelet mean 8.0-11.0 <content [facility] volume [Entitic styleCode="Bold Jose volume] in Blood ">Mean Platelet Medical by Automated Volume Center count </content>10.0 FL<content styleCode="Ital ics"> (8.0-11.0 FL)</content> UNK 1.6-7.3 Above high <content [facility] normal styleCode="Bold Jose ">Neutrophil Medical Count Center </content>11.25 KCUMM H<content styleCode="Ital ics"> (1.6-7.3 KCUMM)</content > UNK 1.0-4.8 <content [facility] styleCode="Bold Jose ">Lymphocyte Medical Count Center </content>1.61 KCUMM<content styleCode="Ital ics"> (1.0-4.8 KCUMM)</content > Lymphocytes 24.0-44. Below low normal <content [facility] [#/volume] in 0 styleCode="Bold Jose Blood by ">Lymphocyte Medical Automated count </content>11.2 Center % L<content styleCode="Ital ics"> (24.0-44.0 %)</content> Eosinophils 0-5.0 <content [facility] [#/volume] in styleCode="Bold Jose Blood by ">Eosinophil Medical Automated count </content>0.1 Center %<content styleCode="Ital ics"> (0-5.0 %)</content> Monocytes 3.0-10.0 Above high <content [facility] [#/volume] in normal styleCode="Bold Jose Blood by ">Monocyte Medical Automated count </content>10.1 Center % H<content styleCode="Ital ics"> (3.0-10.0 %)</content> UNK 0.2-0.9 Above high <content [facility] normal styleCode="Bold Jose ">Monocyte Medical Count Center </content>1.45 KCUMM H<content styleCode="Ital ics"> (0.2-0.9 KCUMM)</content > UNK 0.0-0.3 <content [facility] styleCode="Bold Jose ">Basophil Medical Count Center </content>0.02 KCUMM<content styleCode="Ital ics"> (0.0-0.3 KCUMM)</content > UNK 0.0-0.6 <content [facility] styleCode="Bold Jose ">Eosinophil Medical Count Center </content>0.01 KCUMM<content styleCode="Ital ics"> (0.0-0.6 KCUMM)</content > Basophils 0.0-1.0 <content [facility] [#/volume] in styleCode="Bold Jose Blood by ">Basophil Medical Automated count </content>0.1 Center %<content styleCode="Ital ics"> (0.0-1.0 %)</content> UNK 0.0 <content [facility] styleCode="Bold Jose ">Nucleated Red Medical Blood Cell Center Count </content>0.00 KCUMM<content styleCode="Ital ics"> (0.0 KCUMM)</content > UNK 0 <content [facility] styleCode="Bold Jose ">Nucleated Red Medical Blood Cell Center </content>0.0 /100<content styleCode="Ital ics"> (0 /100)</content> UNK 0-0.1 <content [facility] styleCode="Bold Jose ">Immature Medical Granulocyte Center Count </content>0.05 KCUMM<content styleCode="Ital ics"> (0-0.1 KCUMM)</content > UNK < 1 <content [facility] styleCode="Bold Jose ">Immature Medical Granulocyte Center Ratio </content>0.3 %<content styleCode="Ital ics"> (< 1 %)</content> ID Date Data Source GFR(Creatinine).[id number] 03/29/2019 07:14:00 AM EST Arsh [facility] 0-0500 Name Value Range Interpretation Code Description Data Asmita rce(s) Supporting Document(s ) UNK > 60 <content [facility] styleCode="Bold"> Medical Cent er EGFR </content>122 GFR<content styleCode="Italic s"> (> 60 GFR)</content> ID Date Data Source HematologyRou.[id number] 03/28/2019 07:06:00 AM LORI Caban [facility] 0500 Name Value Range Interpretation Description Data Sup porting Code Source(s) Document(s ) Erythrocytes 4.4-5.9 <content [facility] [#/volume] in styleCode="Bold Jose Blood by ">Red Blood Medical Automated count Cell Count Center </content>4.79 MCUMM<content styleCode="Ital ics"> (4.4-5.9 MCUMM)</content > Leukocytes 4.4-11.0 Above high <content [facility] [#/volume] in normal styleCode="Bold Jose Blood by ">White Blood Medical Automated count Cell Count Center </content>16.27 KCUMM H<content styleCode="Ital ics"> (4.4-11.0 KCUMM)</content > Erythrocyte mean 80.0-100 <content [facility] corpuscular .0 styleCode="Bold Jose volume [Entitic ">Mean Medical volume] by Corpuscular Center Automated count Volume </content>92.5 FL<content styleCode="Ital ics"> (80.0-100.0 FL)</content> Hemoglobin 13.5-17. <content [facility] [Mass/volume] in 5 styleCode="Bold Jose Blood ">Hemoglobin Medical </content>15.5 Center G/DL<content styleCode="Ital ics"> (13.5-17.5 G/DL)</content> Hematocrit 41.0-53. <content [facility] [Volume 0 styleCode="Bold Jose Fraction] of ">Hematocrit Medical Blood by </content>44.3 Center Automated count %<content styleCode="Ital ics"> (41.0-53.0 %)</content> Erythrocyte 11.5-14. <content [facility] distribution 5 styleCode="Bold Jose width [Ratio] by ">Red Cell Medical Automated count Distribution Center Width </content>12.2 %<content styleCode="Ital ics"> (11.5-14.5 %)</content> Erythrocyte mean 26.0-34. <content [facility] corpuscular 0 styleCode="Bold Jose hemoglobin ">Mean Medical [Entitic mass] Corposcular Center by Automated Hemoglobin count </content>32.4 PG<content styleCode="Ital ics"> (26.0-34.0 PG)</content> Erythrocyte mean 32.0-37. <content [facility] corpuscular 0 styleCode="Bold Jose hemoglobin ">Mean Corpus. Medical concentration Hgb Center [Mass/volume] by Concentration Automated count (MCHC) </content>35.0 G/DL<content styleCode="Ital ics"> (32.0-37.0 G/DL)</content> Platelet mean 8.0-11.0 <content [facility] volume [Entitic styleCode="Bold Jose volume] in Blood ">Mean Platelet Medical by Automated Volume Center count </content>10.7 FL<content styleCode="Ital ics"> (8.0-11.0 FL)</content> UNK 0 <content [facility] styleCode="Bold Jose ">Nucleated Red Medical Blood Cell Center </content>0.0 /100<content styleCode="Ital ics"> (0 /100)</content> Platelets 130-400 <content [facility] [#/volume] in styleCode="Bold [place] Blood by ">Platelet Medical Automated count Count Center </content>266 KCUMM<content styleCode="Ital ics"> (130-400 KCUMM)</content > UNK 0.0 <content Saint styleCode="Bold Jose ">Nucleated Red Medical Blood Cell Center Count </content>0.00 KCUMM<content styleCode="Ital ics"> (0.0 KCUMM)</content > ID Date Data Source GFR(Creatinine).[id number] 03/28/2019 07:06:00 AM [facility] Name Value Range Interpretation Code Description Data Asmita rce(s) Supporting Document(s ) UNK > 60 <content [facility] styleCode="Bold"> Medical Cent er EGFR </content>108 GFR<content styleCode="Italic s"> (> 60 GFR)</content> ID Date Data Source Coagulation 03/28/2019 07:06:00 AM [facility] Rout.[id number] EST Name Value Range Interpretation Description Data Sup porting Code Source(s) Document(s ) UNK 9.0-13.0 <content Saint styleCode="Bold" Jose >Protime Medical </content>11.9 Center SEC<content styleCode="Itali cs"> (9.0-13.0 SEC)</content> INR in 0.80-1.2 <content Saint Platelet poor 0 styleCode="Bold" [facility] plasma by >INR Medical Coagulation </content>1.07 Center assay #<content styleCode="Itali cs"> (0.80-1.20 #)</content> aPTT in 25.1-36. Below low normal <content Saint Platelet poor 5 styleCode="Bold" [facility] plasma by >Partial Medical Coagulation Thromboplastin Center assay Time </content>22.5 SEC L<content styleCode="Itali cs"> (25.1-36.5 SEC)</content> ID Date Data Source CHMROUTINECCDA.[id number] 03/28/2019 07:06:00 AM EST Arsh [facility] -0500 Name Value Range Interpretation Description Data Sup porting Code Source(s) Document(s ) Magnesium 1.6-2.3 <content Saint [Mass/volume] styleCode="Zulema Jose in Serum or d">Magnesium Medical Plasma </content>1.6 Center MG/DL<content styleCode="Marbella lics"> (1.6-2.3 MG/DL)</conten t> UNK 4.2-5.8 Above high normal <content Saint styleCode="Zulema Jose d">Hemoglobin Medical A1C Center </content>6.6 % H<content styleCode="Marbella lics"> (4.2-5.8 %)</content> Phosphate 2.5-4.5 <content Saint [Mass/volume] styleCode="Zulema Jose in Serum or d">Phosphorus Medical Plasma </content>3.6 Center MG/DL<content styleCode="Marbella lics"> (2.5-4.5 MG/DL)</conten t> ID Date Data Source [facility].[id number] 03/28/2019 07:06:00 AM EST [facility] Name Value Range Interpretation Description Data Sup porting Code Source(s) Document(s ) Sodium 137-145 <content [facility] [Moles/volume] styleCode="Zulema Jose in Serum or d">Sodium Medical Plasma </content>137 Center MEQ/L<content styleCode="Marbella lics"> (137-145 MEQ/L)</conten t> Potassium 3.5-5.3 <content [facility] [Moles/volume] styleCode="Zulema Jose in Serum or d">Potassium Medical Plasma </content>4.1 Center MEQ/L<content styleCode="Marbella lics"> (3.5-5.3 MEQ/L)</conten t> Carbon 22-30 <content Saint dioxide, total styleCode="Zulema Jose [Moles/volume] d">Carbon Medical in Serum or Dioxide Center Plasma </content>25 MEQ/L<content styleCode="Marbella lics"> (22-30 MEQ/L)</conten t> Chloride 98-107 <content [facility] [Moles/volume] styleCode="Zulema Jose in Serum or d">Chloride Medical Plasma </content>102 Center MEQ/L<content styleCode="Marbella lics"> (98-107 MEQ/L)</conten t> UNK 9-20 <content Saint styleCode="Zulema Jose d">BUN Medical </content>19 Center MG/DL<content styleCode="Marbella lics"> (9-20 MG/DL)</conten t> Creatinine 0.5-1.3 <content [facility] [Mass/volume] styleCode="Zulema Jose in Serum or d">Creatinine Medical Plasma </content>1.0 Center MG/DL<content styleCode="Marbella lics"> (0.5-1.3 MG/DL)</conten t> UNK > 60 <content Saint styleCode="Zulema Graces d">EGFR Medical </content>108 Center GFR<content styleCode="Marbella lics"> (> 60 GFR)</content> Glucose 74-106 Above high normal <content Saint [Mass/volume] styleCode="Zulema Graces in Serum or d">Glucose Medical Plasma </content>192 Center MG/DL H<content styleCode="Marbella lics"> (74-106 MG/DL)</conten t> Calcium 8.4-10.2 <content [facility] [Mass/volume] styleCode="Zulema Graces in Serum or d">Calcium Medical Plasma </content>9.6 Center MG/DL<content styleCode="Marbella lics"> (8.4-10.2 MG/DL)</conten t> ID Date Data Source Urinalysis.[id number] 03/28/2019 04:30:00 AM LORI Arsh [facility] 0 Name Value Range Interpretation Description Data Sup porting Code Source(s) Document(s ) Color of Urine YELLOW <content Saint styleCode="Zulema Garcia d">Color, Medical Urine Center </content>YELL OW <content styleCode="Marbella lics"> (YELLOW )</content> UNK NEGATIVE <content Saint styleCode="Zulema Garcia d">Urine Medical Bilirubin Center </content>NEGA TIVE <content styleCode="Marbella lics"> (NEGATIVE )</content> Glucose NEGATIVE <content Saint [Mass/volume] styleCode="Zulema Garcia in Urine by d">Urine Medical Test strip Glucose Center </content>250 MG/DL<content styleCode="Marbella lics"> (NEGATIVE MG/DL)</conten t> UNK CLEAR <content Saint styleCode="Zulema Graces d">Urine Medical Clarity Center </content>BEL R <content styleCode="Marbella lics"> (CLEAR )</content> Specific 1.015-1.02 <content [facility] gravity of 5 styleCode="Zulema Jose Urine by Test d">Urine Medical strip Specific Center [place] </content>1.02 5 <content styleCode="Marbella lics"> (1.015-1.025 )</content> Ketones NEGATIVE <content [facility] [Mass/volume] styleCode="Zulema Jose in Urine by d">Urine Medical Test strip Ketone Center </content>15 MG/DL<content styleCode="Marbella lics"> (NEGATIVE MG/DL)</conten t> Hemoglobin NEGATIVE <content Saint [Presence] in styleCode="Zulema Jose Urine by Test d">Urine Blood Medical strip </content>NEGA Center TIVE <content styleCode="Marbella lics"> (NEGATIVE )</content> pH of Urine by 4.5-8.0 <content Saint Test strip styleCode="Zulema Jose d">Urine pH Medical </content>6.0 Center <content styleCode="Marbella lics"> (4.5-8.0 )</content> Protein NEGATIVE <content Saint [Mass/volume] styleCode="Zulema Jose in Urine by d">Urine Medical Test strip Protein Center </content>NEGA TIVE MG/DL<content styleCode="Marbella lics"> (NEGATIVE MG/DL)</conten t> Urobilinogen 0.2-1.0 <content Saint [Units/volume] styleCode="Zulema Jose in Urine by d">Urine Medical Test strip Urobilinogen Center </content>0.2 MG/DL<content styleCode="Marbella lics"> (0.2-1.0 MG/DL)</conten t> Leukocyte NEGATIVE <content [facility] esterase styleCode="Zulema Jose [Presence] in d">Urine Medical Urine by Test Leukocyte Center strip </content>NEGA TIVE <content styleCode="Marbella lics"> (NEGATIVE )</content> Nitrite NEGATIVE <content Saint [Presence] in styleCode="Zulema Jose Urine by Test d">Urine Medical strip Nitrite Center </content>NEGA TIVE <content styleCode="Marbella lics"> (NEGATIVE )</content> ID Date Data Source [facility].[id number] 03/28/2019 04:30:00 AM LORI Caban [facility] -0500 Name Value Range Interpretation Description Data Sup porting Code Source(s) Document(s ) Cannabinoids <content Saint [Presence] in styleCode="[facility] Urine by Screen d">Cannabinoid Medical method >50 ng/mL s Center </content>PRES UMPTIVE POSITIVE NG/ML (Reference Range: not available)<br/ > ID Date Data Source Liver 03/27/2019 09:10:00 AM [facility] Profile.[id number] Name Value Range Interpretation Description Data Sup porting Code Source(s) Document(s ) Alanine 7-50 <content [facility] aminotransferase styleCode="Bold"> David hs [Enzymatic Alanine Medical activity/volume] Aminotransferase Center in Serum or Plasma (ALT) </content>25 IU/L<content styleCode="Italic s"> (7-50 IU/L)</content> Aspartate 17-59 <content [facility] aminotransferase styleCode="Bold"> David hs [Enzymatic Aspartate Medical activity/volume] Aminotransferase Center in Serum or Plasma (AST) </content>28 IU/L<content styleCode="Italic s"> (17-59 IU/L)</content> Bilirubin.total 0.2-1.3 <content [facility] [Mass/volume] in styleCode="Bold"> David hs Serum or Plasma Bilirubin Total Medical </content>0.7 Center MG/DL<content styleCode="Italic s"> (0.2-1.3 MG/DL)</content> Albumin 3.5-5.0 <content [facility] [Mass/volume] in styleCode="Bold"> David hs Serum or Plasma Albumin Medical </content>4.0 Center G/DL<content styleCode="Italic s"> (3.5-5.0 G/DL)</content> Alkaline 38-126 <content [facility] phosphatase styleCode="Bold"> Jose [Enzymatic Alkaline Medical activity/volume] Phosphatase (ALP) Cente r in Serum or Plasma </content>73 IU/L<content styleCode="Italic s"> (38-126 IU/L)</content> ID Date Data Source GFR(Creatinine).[id number] 03/27/2019 09:10:00 AM [facility] 0-0500 Name Value Range Interpretation Code Description Data Asmita rce(s) Supporting Document(s ) UNK > 60 <content [facility] styleCode="Bold"> Medical Cent er EGFR </content>122 GFR<content styleCode="Italic s"> (> 60 GFR)</content> ID Date Data Source CHMROUTINECCDA.[id number] 03/27/2019 09:10:00 AM [facility] -0500 Name Value Range Interpretation Description Data Sup porting Code Source(s) Document(s ) UNK >= 1.0 <content [facility] styleCode="Bold Medical ">AG Ratio Center </content>1.4 <content styleCode="Ital ics"> (>= 1.0 )</content> Protein 6.3-8.2 <content [facility] [Mass/volum styleCode="Bold Medical e] in Serum ">Total Protein Center or Plasma </content>6.8 G/DL<content styleCode="Ital ics"> (6.3-8.2 G/DL)</content> UNK 2.3-3.5 <content [facility] styleCode="Bold Medical ">Globulin Center </content>2.8 G/DL<content styleCode="Ital ics"> (2.3-3.5 G/DL)</content> ID Date Data Source CardiacMarkers.[id number] 03/27/2019 09:10:00 AM [facility] -0500 Name Value Range Interpretation Description Data Sup porting Code Source(s) Document(s ) Troponin < 0.034 <content [facility] I.cardiac styleCode="Bold Jose [Mass/volume ">Troponin I Medical ] in Serum </content>< Center or Plasma 0.012 NG/ML<content styleCode="Ital ics"> (< 0.034 NG/ML)</content > ID Date Data Source BMP.[id number] 03/27/2019 09:10:00 AM EST [facility] Name Value Range Interpretation Description Data Sup porting Code Source(s) Document(s ) Potassium 3.5-5.3 <content Saint [Moles/volume] in styleCode="Bold"> [facility] Serum or Plasma Potassium Medical </content>4.1 Center MEQ/L<content styleCode="Italic s"> (3.5-5.3 MEQ/L)</content> Sodium 137-145 <content Saint [Moles/volume] in styleCode="Bold"> [facility] Serum or Plasma Sodium Medical </content>138 Center MEQ/L<content styleCode="Italic s"> (137-145 MEQ/L)</content> Chloride 98-107 <content Saint [Moles/volume] in styleCode="Bold"> [facility] Serum or Plasma Chloride Medical </content>103 Center MEQ/L<content styleCode="Italic s"> (98-107 MEQ/L)</content> Carbon dioxide, 22-30 <content Saint total styleCode="Bold"> Jose [Moles/volume] in Carbon Dioxide Medical Serum or Plasma </content>24 Center MEQ/L<content styleCode="Italic s"> (22-30 MEQ/L)</content> Creatinine 0.5-1.3 <content [facility] [Mass/volume] in styleCode="Bold"> David hs Serum or Plasma Creatinine Medical </content>0.9 Center MG/DL<content styleCode="Italic s"> (0.5-1.3 MG/DL)</content> UNK 9-20 <content Saint styleCode="Bold"> Jose BUN </content>19 Medical MG/DL<content Center styleCode="Italic s"> (9-20 MG/DL)</content> Calcium 8.4-10. <content [facility] [Mass/volume] in 2 styleCode="Bold"> David hs Serum or Plasma Calcium Medical </content>9.2 Center MG/DL<content styleCode="Italic s"> (8.4-10.2 MG/DL)</content> UNK > 60 <content Saint styleCode="Bold"> Jose EGFR Medical </content>122 Center GFR<content styleCode="Italic s"> (> 60 GFR)</content> Aspartate 17-59 <content [facility] aminotransferase styleCode="Bold"> David hs [Enzymatic Aspartate Medical activity/volume] Aminotransferase Center in Serum or Plasma (AST) </content>28 IU/L<content styleCode="Italic s"> (17-59 IU/L)</content> Glucose 74-106 Above high <content Saint [Mass/volume] in normal styleCode="Bold"> David hs Serum or Plasma Glucose Medical </content>280 Center MG/DL H<content styleCode="Italic s"> (74-106 MG/DL)</content> Alanine 7-50 <content [facility] aminotransferase styleCode="Bold"> David hs [Enzymatic Alanine Medical activity/volume] Aminotransferase Center in Serum or Plasma (ALT) </content>25 IU/L<content styleCode="Italic s"> (7-50 IU/L)</content> Bilirubin.total 0.2-1.3 <content [facility] [Mass/volume] in styleCode="Bold"> David hs Serum or Plasma Bilirubin Total Medical </content>0.7 Center MG/DL<content styleCode="Italic s"> (0.2-1.3 MG/DL)</content> Alkaline 38-126 <content Saint phosphatase styleCode="Bold"> [facility] [Enzymatic Alkaline Medical activity/volume] Phosphatase (ALP) Cente r in Serum or Plasma </content>73 IU/L<content styleCode="Italic s"> (38-126 IU/L)</content> Albumin 3.5-5.0 <content [facility] [Mass/volume] in styleCode="Bold"> David hs Serum or Plasma Albumin Medical </content>4.0 Center G/DL<content styleCode="Italic s"> (3.5-5.0 G/DL)</content> ID Date Data Source CHMROUTINECCDA.[id number] 03/27/2019 07:52:00 AM EST Arsh [facility] -0500 Name Value Range Interpretation Description Data Sup porting Code Source(s) Document(s ) UNK <content [facility] Garcia styleCode="Bold Medical ">AG Ratio Center </content>Test not performed. (Reference Range: not available)
Lipase <content [facility] Jose [Enzymatic styleCode="Bold Medical activity/vol ">Lipase Center ume] in </content>Test Serum or not performed. Plasma IU/L (Reference Range: not available)
Protein <content [facility] Graces [Mass/volume styleCode="Bold Medical ] in Serum ">Total Protein Center or Plasma </content>Test not performed. G/DL (Reference Range: not available)
UNK <content [facility] Graces styleCode="Bold Medical ">Globulin Center </content>Test not performed. G/DL (Reference Range: not available)
ID Date Data Source Liver 03/27/2019 07:52:00 AM EST [facility] Profile.[id number] Name Value Range Interpretation Description Data Sup porting Code Source(s) Document(s ) Aspartate <content [facility] aminotransferase styleCode="Bold"> David hs [Enzymatic Aspartate Medical activity/volume] Aminotransferase Center in Serum or Plasma (AST) </content>Test not performed. IU/L (Reference Range: not available)
Alanine <content Saint aminotransferase styleCode="Bold"> David hs [Enzymatic Alanine Medical activity/volume] Aminotransferase Center in Serum or Plasma (ALT) </content>Test not performed. IU/L (Reference Range: not available)
Bilirubin.total <content Saint [Mass/volume] in styleCode="Bold"> David hs Serum or Plasma Bilirubin Total Medical </content>Test Center not performed. MG/DL (Reference Range: not available)
Alkaline <content [facility] phosphatase styleCode="Bold"> Jose [Enzymatic Alkaline Medical activity/volume] Phosphatase (ALP) Cente r in Serum or Plasma </content>Test not performed. IU/L (Reference Range: not available)
Albumin <content Saint [Mass/volume] in styleCode="Bold"> David hs Serum or Plasma Albumin Medical </content>Test Center not performed. G/DL (Reference Range: not available)
ID Date Data Source HematologyRou.[id number] 03/27/2019 07:52:00 AM LORI Caban [facility] 0500 Name Value Range Interpretation Description Data Sup porting Code Source(s) Document(s ) Hemoglobin 13.5-17. <content [facility] [Mass/volume] in 5 styleCode="Bold Jose Blood ">Hemoglobin Medical </content>15.2 Center G/DL<content styleCode="Ital ics"> (13.5-17.5 G/DL)</content> Erythrocytes 4.4-5.9 <content Saint [#/volume] in styleCode="Bold Jose Blood by ">Red Blood Medical Automated count Cell Count Center </content>4.76 MCUMM<content styleCode="Ital ics"> (4.4-5.9 MCUMM)</content > Leukocytes 4.4-11.0 Above high <content Saint [#/volume] in normal styleCode="Bold Jose Blood by ">White Blood Medical Automated count Cell Count Center </content>11.04 KCUMM H<content styleCode="Ital ics"> (4.4-11.0 KCUMM)</content > Hematocrit 41.0-53. <content Saint [Volume 0 styleCode="Bold [facility] Fraction] of ">Hematocrit Medical Blood by </content>43.4 Center Automated count %<content styleCode="Ital ics"> (41.0-53.0 %)</content> Erythrocyte mean 80.0-100 <content [facility] corpuscular .0 styleCode="Bold Jose volume [Entitic ">Mean Medical volume] by Corpuscular Center Automated count Volume </content>91.2 FL<content styleCode="Ital ics"> (80.0-100.0 FL)</content> Erythrocyte mean 26.0-34. <content [facility] corpuscular 0 styleCode="Bold Jose hemoglobin ">Mean Medical [Entitic mass] Corposcular Center by Automated Hemoglobin count </content>31.9 PG<content styleCode="Ital ics"> (26.0-34.0 PG)</content> Erythrocyte mean 32.0-37. <content [facility] corpuscular 0 styleCode="Bold Jose hemoglobin ">Mean Corpus. Medical concentration Hgb Center [Mass/volume] by Concentration Automated count (MCHC) </content>35.0 G/DL<content styleCode="Ital ics"> (32.0-37.0 G/DL)</content> Platelets 130-400 <content Saint [#/volume] in styleCode="Bold Jose Blood by ">Platelet Medical Automated count Count Center </content>321 KCUMM<content styleCode="Ital ics"> (130-400 KCUMM)</content > Erythrocyte 11.5-14. <content [facility] distribution 5 styleCode="Bold Jose width [Ratio] by ">Red Cell Medical Automated count Distribution Center Width </content>12.3 %<content styleCode="Ital ics"> (11.5-14.5 %)</content> UNK 1.6-7.3 Above high <content Saint normal styleCode="Bold Jose ">Neutrophil Medical Count Center </content>9.04 KCUMM H<content styleCode="Ital ics"> (1.6-7.3 KCUMM)</content > Neutrophils 36-66 Above high <content Saint [#/volume] in normal styleCode="Bold Jose Blood by ">Neutrophil Medical Automated count </content>81.9 Center % H<content styleCode="Ital ics"> (36-66 %)</content> Platelet mean 8.0-11.0 <content Saint volume [Entitic styleCode="Bold Jose volume] in Blood ">Mean Platelet Medical by Automated Volume Center count </content>9.7 FL<content styleCode="Ital ics"> (8.0-11.0 FL)</content> Lymphocytes 24.0-44. Below low normal <content Saint [#/volume] in 0 styleCode="Bold Jose Blood by ">Lymphocyte Medical Automated count </content>11.1 Center % L<content styleCode="Ital ics"> (24.0-44.0 %)</content> UNK 1.0-4.8 <content Saint styleCode="Bold Jose ">Lymphocyte Medical Count Center </content>1.23 KCUMM<content styleCode="Ital ics"> (1.0-4.8 KCUMM)</content > UNK 0.2-0.9 <content Saint styleCode="Bold Jose ">Monocyte Medical Count Center </content>0.71 KCUMM<content styleCode="Ital ics"> (0.2-0.9 KCUMM)</content > Monocytes 3.0-10.0 <content Saint [#/volume] in styleCode="Bold Jose Blood by ">Monocyte Medical Automated count </content>6.4 Center %<content styleCode="Ital ics"> (3.0-10.0 %)</content> Eosinophils 0-5.0 <content Saint [#/volume] in styleCode="Bold Jose Blood by ">Eosinophil Medical Automated count </content>0.0 Center %<content styleCode="Ital ics"> (0-5.0 %)</content> UNK 0.0-0.6 <content Saint styleCode="Bold Jose ">Eosinophil Medical Count Center </content>0.00 KCUMM<content styleCode="Ital ics"> (0.0-0.6 KCUMM)</content > UNK 0.0-0.3 <content Saint styleCode="Bold Jose ">Basophil Medical Count Center </content>0.01 KCUMM<content styleCode="Ital ics"> (0.0-0.3 KCUMM)</content > Basophils 0.0-1.0 <content Saint [#/volume] in styleCode="Bold Jose Blood by ">Basophil Medical Automated count </content>0.1 Center %<content styleCode="Ital ics"> (0.0-1.0 %)</content> UNK 0 <content Saint styleCode="Bold Jose ">Nucleated Red Medical Blood Cell Center </content>0.0 /100<content styleCode="Ital ics"> (0 /100)</content> UNK 0-0.1 <content Saint styleCode="Bold Jose ">Immature Medical Granulocyte Center Count </content>0.05 KCUMM<content styleCode="Ital ics"> (0-0.1 KCUMM)</content > UNK 0.0 <content Saint styleCode="Bold Jose ">Nucleated Red Medical Blood Cell Center Count </content>0.00 KCUMM<content styleCode="Ital ics"> (0.0 KCUMM)</content > UNK < 1 <content Saint styleCode="Bold Jose ">Immature Medical Granulocyte Center Ratio </content>0.5 %<content styleCode="Ital ics"> (< 1 %)</content> ID Date Data Source GFR(Creatinine).[id number] 03/27/2019 07:52:00 AM [facility] 0-0500 Name Value Range Interpretation Code Description Data Asmita rce(s) Supporting Document(s ) UNK <content [facility] Jose styleCode="Bold"> Medical Cent er EGFR </content>Test not performed. GFR (Reference Range: not available)
ID Date Data Source CardiacMarkers.[id number] 03/27/2019 07:52:00 AM [facility] -0500 Name Value Range Interpretation Description Data Sup porting Code Source(s) Document(s ) Troponin <content [facility] Jose I.cardiac styleCode="Bold Medical [Mass/volume ">Troponin I Center ] in Serum </content>Test or Plasma not performed. NG/ML (Reference Range: not available)
ID Date Data Source BMP.[id number] 03/27/2019 07:52:00 AM [facility] Name Value Range Interpretation Description Data Sup porting Code Source(s) Document(s ) Potassium <content Saint [Moles/volume] in styleCode="Bold"> Boo phs Serum or Plasma Potassium Medical </content>Test Center not performed. MEQ/L (Reference Range: not available)
Carbon dioxide, <content Saint total styleCode="Bold"> Jose [Moles/volume] in Carbon Dioxide Medical Serum or Plasma </content>Test Center not performed. MEQ/L (Reference Range: not available)
Chloride <content Saint [Moles/volume] in styleCode="Bold"> Boo phs Serum or Plasma Chloride Medical </content>Test Center not performed. MEQ/L (Reference Range: not available)
Sodium <content Saint [Moles/volume] in styleCode="Bold"> Boo phs Serum or Plasma Sodium Medical </content>Test Center not performed. MEQ/L (Reference Range: not available)
Calcium <content [facility] [Mass/volume] in styleCode="Bold"> [facility] hs Serum or Plasma Calcium Medical </content>Test Center not performed. MG/DL (Reference Range: not available)
UNK <content [facility] styleCode="Bold"> [facility] BUN Medical </content>Test Center not performed. MG/DL (Reference Range: not available)
Creatinine <content [facility] [Mass/volume] in styleCode="Bold"> [facility] hs Serum or Plasma Creatinine Medical </content>Test Center not performed. MG/DL (Reference Range: not available)
Glucose <content [facility] [Mass/volume] in styleCode="Bold"> [facility] hs Serum or Plasma Glucose Medical </content>Test Center not performed. MG/DL (Reference Range: not available)
UNK <content [facility] styleCode="Bold"> [facility] EGFR Medical </content>Test Center not performed. GFR (Reference Range: not available)
Alanine <content [facility] aminotransferase styleCode="Bold"> David hs [Enzymatic Alanine Medical activity/volume] Aminotransferase Center in Serum or Plasma (ALT) </content>Test not performed. IU/L (Reference Range: not available)
Aspartate <content [facility] aminotransferase styleCode="Bold"> [facility] hs [Enzymatic Aspartate Medical activity/volume] Aminotransferase Center in Serum or Plasma (AST) </content>Test not performed. IU/L (Reference Range: not available)
Alkaline <content [facility] phosphatase styleCode="Bold"> Jose [Enzymatic Alkaline Medical activity/volume] Phosphatase (ALP) Cente r in Serum or Plasma </content>Test not performed. IU/L (Reference Range: not available)
Albumin <content [facility] [Mass/volume] in styleCode="Bold"> David hs Serum or Plasma Albumin Medical </content>Test Center not performed. G/DL (Reference Range: not available)
Bilirubin.total <content [facility] [Mass/volume] in styleCode="Bold"> [facility] hs Serum or Plasma Bilirubin Total Medical </content>Test Center not performed. MG/DL (Reference Range: not available)
Procedure Social History Code Duration Value Status Description Data Source(s ) Smoking 03/27/2019 Former Smoker completed Former Smoker [facility] 04:50:00 PM EST Medical C enter Smoking 03/27/2019 Denies Ever completed Denies Ever Smoked [facility] 11:47:00 AM EST Smoked Medical C enter Smoking 03/27/2019 Denies Ever completed Denies Ever Smoked [facility] 07:30:00 AM EST Smoked Medical C enter Smoking 03/27/2019 Denies Ever completed Denies Ever Smoked [facility] 07:25:00 AM EST Smoked Medical C enter Smoking 03/27/2019 Denies Ever completed Denies Ever Smoked [facility] 07:24:00 AM EST Smoked Medical C enter Vital Signs ID Date Data Source UNK Name Value Range Interpretation Code Description Data Source(s) Body temperature 37.622336 37.527882 [facility] Respiratory rate 18 /min 18 /min [facility] Heart rate 72 /min 72 /min [facility] Diastolic blood 88 mm[Hg] 88 mm[Hg] Health system Systolic blood 147 mm[Hg] 147 mm[Hg] [facility] Body temperature 37.081154 37.040363 [facility] Respiratory rate 18 /min 18 /min [facility] Heart rate 78 /min 78 /min [facility] Diastolic blood 90 mm[Hg] 90 mm[Hg] Health system Systolic blood 140 mm[Hg] 140 mm[Hg] [facility] Body weight 70.182748 kg 70.204623 kg [facility] Measured [facility] Body height 180.276894 180.680149 cm [facility] [place] Body mass index 21.65 kg/m2 21.65 kg/m2 [facility] isac (BMI) [Ratio] Medical [facility] ter Body temperature 36.007662 36.523409 [facility] Respiratory rate 18 /min 18 /min [facility] Heart rate 80 /min 80 /min [facility] Diastolic blood 78 mm[Hg] 78 mm[Hg] [facility] pressure [facility] Center Systolic blood 136 mm[Hg] 136 mm[Hg] [facility] Medical [facility] [place] Body weight 70.164614 kg 70.865842 kg [facility] Measured [facility] Body height 180.473547 180.396655 cm [facility] Body mass index 21.65 kg/m2 21.65 kg/m2 [facility] osephs (BMI) [Ratio] Medical [address] Body temperature 36.177156 36.537396 [facility] Respiratory rate 18 /min 18 /min [facility] Heart rate 78 /min 78 /min [facility] Diastolic blood 81 mm[Hg] 81 mm[Hg] [facility] pressure Medical Center Systolic blood 138 mm[Hg] 138 mm[Hg] [facility] Body temperature 37.108706 37.948531 [facility] Respiratory rate 18 /min 18 /min [facility] Heart rate 84 /min 84 /min [facility] Diastolic blood 85 mm[Hg] 85 mm[Hg] [facility] Medical Center Systolic blood 136 mm[Hg] 136 mm[Hg] [facility] Body weight 70.659103 kg 70.849199 kg [facility] Measured [facility] Center Oxygen saturation 96 % 96 % [facility] Светлана chau in Arterial blood Medical Center by Pulse oximetry Body height 180.286843 180.967720 cm [facility] Body mass index 21.65 kg/m2 21.65 kg/m2 [facility] osephs (BMI) [Ratio] Medical [address] Body temperature 37.014696 37.772407 [facility] Respiratory rate 20 /min 20 /min [facility] Heart rate 86 /min 86 /min [facility] Diastolic blood 70 mm[Hg] 70 mm[Hg] [facility] Medical Center Systolic blood 129 mm[Hg] 129 mm[Hg] [facility] Body temperature 37.827880 37.752023 [facility] Respiratory rate 18 /min 18 /min [facility] Heart rate 83 /min 83 /min [facility] Diastolic blood 76 mm[Hg] 76 mm[Hg] Health system Systolic blood 128 mm[Hg] 128 mm[Hg] [facility] Body temperature 37.562407 37.895576 [facility] Respiratory rate 18 /min 18 /min [facility] Heart rate 92 /min 92 /min [facility] Diastolic blood 70 mm[Hg] 70 mm[Hg] [facility] Center Systolic blood 138 mm[Hg] 138 mm[Hg] [facility] Body weight 70.861068 kg 70.985613 kg [facility] Body height 180.783300 180.214055 cm [facility] Body mass index 21.65 kg/m2 21.65 kg/m2 [facility] (BMI) [Ratio] Medical [address] Body temperature 36.255661 36.048715 [facility] Respiratory rate 18 /min 18 /min [facility] Heart rate 80 /min 80 /min [facility] Diastolic blood 78 mm[Hg] 78 mm[Hg] Health system Systolic blood 122 mm[Hg] 122 mm[Hg] [facility] Oxygen saturation 98 % 98 % [facility] in [facility] blood [facility] by Pulse oximetry Body temperature 37.871463 37.039422 [facility] Respiratory rate 18 /min 18 /min [facility] Heart rate 85 /min 85 /min [facility] Diastolic blood 77 mm[Hg] 77 mm[Hg] Health system Systolic blood 124 mm[Hg] 124 mm[Hg] [facility] Oxygen saturation 97 % 97 % [facility] in Arterial blood Medical Center by Pulse oximetry Oxygen saturation 99 % 99 % [facility] in Arterial blood Medical Center by Pulse oximetry Oxygen saturation 100 % 100 % [facility] in Arterial blood Medical Center by Pulse oximetry
[2019-11-23] MEDS ORDERED: METOCLOPRAMIDE HCL INJECTION 10 MG/2 ML VIAL ONE (19:54)
[2019-11-23 19:57] LABS: BASO % 0.9 % (0-2.0); HEMATOCRIT 45.5 % (35.4-49); HEMOGLOBIN 15.3 GM/dL (11.7-16.9); LYMPH % 6.4 % (8-40); MCH 32.4 pg (25.7-33.7); MCHC 33.6 g/dl (32.0-35.9); MEAN CELL VOLUME 96.4 fl (80-96); MEAN PLT VOLUME 8.2 fl (7.5-11.1); NEUT % 88.7 % (42.8-82.8); PLATELET COUNT 240 K/MM3 (134-434); RBC 4.72 M/mm3 (4.00-5.60); RDW 13.3 % (11.9-15.9); WHITE BLOOD COUNT 11.8 K/mm3 (4.0-10.0)
[2019-11-23 20:24] LABS: ALBUMIN 4.1 g/dl (3.4-5.0); BLOOD UREA NITROGEN 15.1 mg/dL (7-18); CALCIUM 9.3 mg/dL (8.5-10.1); CREATININE 1.4 mg/dL (0.55-1.3); POTASSIUM 4.8 mmol/L (3.5-5.1); TOT PROT 7.6 g/dl (6.4-8.2)
--- NOTE | 2019-11-23 20:28 | PDOC ---
History of Present Illness - General Chief Complaint: Nausea/Vomiting Stated Complaint: ABD PAIN Time Seen by Provider: 11/23/19 18:33 - History of Present Illness Initial Comments: 39 YOM h/o insulin controlled diabetes and gastroparesis presents with nausea, vomiting, and abdominal pain since 11pm last night. Patient reports pain is located in epigastrum, is 9/10, sharp, no radiation. 6 bouts of vomiting, initially yellow/green then brown. Reports smoking marijuana regularly, last time yesterday prior to onset of symptoms. Reports warm showers improve sx. Otherwise denies CP, SOB, diarrhea, fever, chills, recent sick contacts, blood or discomfort with stool, blood or discomfort with urine. Constitutional: No Weight Change, No Fever, No Chills, No Night Sweats, No Fatigue, No Malaise ENT/Mouth: No Hearing Changes, No Ear Pain, No Nasal Congestion, No Sinus Pain, No Hoarseness, No sore throat, No Rhinorrhea, No Swallowing Difficulty Eyes: No Eye Pain, No Swelling, No Redness, No Foreign Body, No Discharge, No V ision Changes Cardiovascular: No Chest Pain, No SOB, No PND, No Dyspnea on Exertion, No Orthopnea, No Claudication, No Edema, No Palpitations Respiratory: No Cough, No Sputum, No Wheezing, No Smoke Exposure, No Dyspnea Gastrointestinal: No Nausea, No Vomiting, No Diarrhea, No Constipation, No Gisela n, No Heartburn, No Anorexia, No Dysphagia, No Hematochezia, No Melena, No Flatulence, No Jaundice Genitourinary: No Dyspareunia, No Dysuria, No Urinary Frequency, No Hematuria, No Urinary Incontinence, No Urgency, No Flank Pain, No Urinary Flow Changes, No Hesitancy Musculoskeletal: No Arthralgias, No Myalgias, No Joint Swelling, No Joint Stiffness, No Back Pain, No Neck Pain, No Injury History Skin: No Skin Lesions, No Pruritis, No Hair Changes, No Breast/Skin Changes, No Nipple Discharge Neuro: No Weakness, No Numbness, No Paresthesias, No Loss of Consciousness, No Syncope, No Dizziness, No Headache, No Coordination Changes, No Recent Falls Psych: No Anxiety/Panic, No Depression, No Insomnia, No Personality Changes, No Delusions, No Rumination, No SI/HI/AH/VH, No Social Issues, No Memory Changes, No Violence/Abuse Hx., No Eating Concerns Heme/Lymph: No Bruising, No Bleeding, No Transfusions History, No Lymphadenopathy Endocrine: No Polyuria, No Polydipsia, No Temperature Intolerance Past History - Medical History Allergies/Adverse Reactions: Allergies Allergy/AdvReac Type Severity Reaction Status Date / Time Penicillins AdvReac Verified 11/23/19 18:34 Home Medications: Ambulatory Orders Insulin Glargine,Hum.rec.anlog [Basaglar Kwikpen U-100] 20 unit SQ HS 08/12/19 Metoclopramide HCl [Reglan -] 10 mg PO DAILY 09/15/19 Ondansetron [Zofran -] 4 mg PO TID 09/15/19 Pantoprazole Sodium [Protonix] 40 mg PO DAILY 09/15/19 Sildenafil Citrate [Viagra] 50 mg PO DAILY 09/15/19 Erythromycin Base [Erythromycin] 250 mg PO TID #12 tablet 09/20/19 Anemia: No Asthma: No Cancer: No Cardiac Disorders: No CVA: No COPD: No CHF: No Dementia: No Diabetes: Yes GI Disorders: No Disorders: No HTN: Yes Hypercholesterolemia: No Liver Disease: No Seizures: No Thyroid Disease: No - Surgical History Abdominal Surgery: No Appendectomy: No Cardiac Surgery: No Cholecystectomy: No GI Surgery: No Lung Surgery: No Neurologic Surgery: No Orthopedic Surgery: No - Immunization History Td Vaccination: Yes Immunization Up to Date: Yes - Psycho-Social/Smoking History Smoking History: Current every day smoker Have you smoked in the past 12 months: No Number of Cigarettes Smoked Daily: 0 If you are a former smoker, when did you quit?: 3 years Information on smoking cessation initiated: Yes - Substance Abuse Hx (Audit-C & DAST Scrn) How often the patient has a drink containing alcohol: Never Score: In Men: 4 or > Positive; In Women: 3 or > Positive: 0 Screen Result (Pos requires Nsg. Audit-10AR): Negative In the last yr the pt used illegal drug/Rx for NonMed reason: Yes Score: Yes response is considered Positive: 1 Screen Result (Positive result requires Nsg. DAST-10): Positive *Physical Exam - Vital Signs Last Vital Signs Temp Pulse Resp BP Pulse Ox 97.8 F 88 18 150/100 98 11/23/19 18:34 11/23/19 18:34 11/23/19 18:34 11/23/19 18:34 11/23/19 18:34 - Physical Exam General Appearance: Yes: Nourished, Appropriately Dressed, Apparent Distress, Other (patient lying in position on stretcher in apparent discomfort) HEENT: positive: EOMI, PRO, Normal ENT Inspection, Normal Voice, Symmetrical, TMs Normal, Pharynx Normal Neck: positive: Trachea midline, Normal Thyroid Respiratory/Chest: positive: Lungs Clear, Normal Breath Sounds Cardiovascular: positive: Regular Rhythm, Regular Rate, S1, S2 Gastrointestinal/Abdominal: positive: Tender, Flat, Soft, Other (TTP in epigastrum) Musculoskeletal: positive: Normal Inspection Extremity: positive: Normal Capillary Refill, Normal Inspection ED Treatment Course - LABORATORY CBC & Chemistry Diagram: 11/23/19 19:44 11/23/19 19:44 - ADDITIONAL ORDERS Additional order review: 11/23/19 19:44 RBC 4.72 MCV 96.4 H MCHC 33.6 RDW 13.3 MPV 8.2 Neutrophils % 88.7 H Lymphocytes % 6.4 L Monocytes % 4.0 Eosinophils % 0.0 Basophils % 0.9 - Medications Given in the ED: ED Medications Discontinued Medications Generic Name Dose Route Start Last Admin Trade Name Freq PRN Reason Stop Dose Admin Metoclopramide HCl 10 mg 11/23/19 18:35 11/23/19 20:00 Reglan Injection - IVPUSH 11/23/19 18:36 10 mg ONCE ONE Administration Sodium Chloride 1,000 ml 11/23/19 18:36 11/23/19 20:00 Normal Saline - IV 11/23/19 18:37 1,000 ml ONCE ONE Administration Medical Decision Making - Medical Decision Making 39 YOM h/o diabetes and gastroparesis presents with abdominal pain and vomiting since 1 day - vitals wnl - ttp in epigastrum on exam - labs, fluids, reglan, reassess Reassess Patient continues to vomit and unable to hold down liquids Gave haldol IM and reassess reassess - patient is feeling better and is able to keep down 1 cup apple juice without v omiting - will dc patient to follow up Discharge - Discharge Information Problems reviewed: Yes Clinical Impression/Diagnosis: Diabetic gastroparesis, Vomiting Condition: Improved Disposition: HOME - Admission No - Follow up/Referral Referrals: Zita Ramos [Primary Care Provider] - - Patient Discharge Instructions Patient Printed Discharge Instructions: DI for Vomiting -- Adult Additional Instructions: You were seen in the ER for vomiting and abdominal pain. You received labs and medications. Your labs were not concerning. You reported feeling better after you were given medication and were observed to be able to drink fluids and not vomit. You were considered medically stable and safe to return home. You reported that you smoke marijuana. Marijuana is known to cause nausea and vomiting. It is a likely cause of your current symptoms. We recommend you stop using marijuana. Upon returning home you can drink clear liquids, and eat whatever is tolerable for you. Get plenty of rest and if these symptoms persist please follow up with your primary care provider or return to the ER. Please return to the ER if you experience the following: You see blood in your vomit or your bowel movements. You have sudden, severe pain in your chest and upper abdomen after hard vomiting or retching. You have swelling in your neck and chest. You are dizzy, cold, and thirsty and your eyes and mouth are dry. You are urinating very little or not at all. You have muscle weakness, leg cramps, and trouble breathing. Your heart is beating much faster than normal. You continue to vomit for more than 48 hours. You have frequent dry heaves (vomiting but nothing comes out). Your nausea and vomiting does not get better or go away after you use medicine. You have questions or concerns about your condition or treatment. - Post Discharge Activity
[2019-11-23] MEDS ORDERED: FAMOTIDINE 20 MG/50 ML IVPB 20 MG/50 ML MG IVPB ONE ×2 (20:36→21:11)
[2019-11-23] MEDS ORDERED: ACETAMINOPHEN 1000 MG/100 ML VIAL (NON FORMULARY) IVPB ONE (20:36)
--- NOTE | 2019-11-23 21:01 | PDOC ---
Documentation entered by Vero Gibbs SCRIBE, acting as scribe for Roxanne García MD. Roxanne García MD: This documentation has been prepared by the scribeSai Ana, SCRIBE, under my direction and personally reviewed by me in its entirety. I confirm that the documentation accurately reflects all work, treatment, procedures, and medical decision making performed by me. Attending Attestation - Resident Resident Name: DilipDale eaton - ED Attending Attestation I have performed the following: I have examined & evaluated the patient, The case was reviewed & discussed with the resident, I agree w/resident's findings & plan, Exceptions are as noted - HPI HPI: 11/23/19 20:43 Patient is a 39 year old male with a significant past medical istory of diabetes and gastroparesis who presents to the ED with nausea, vomiting, and abdominal pain since 11pm last night. Patient stated his pain is in the epigastrum area with a pain level of 9/10 and that it does not radiate. Patient also reports 6 episodes of first yellow then brown vomiting. Patient disclosed he smokes recreational marijuana frequently. Patient denies: fever, chills, SOB, chest pain, diarrhea, blood in stool or urine, recent sick contacts, or any other related symptoms. Allergies: Penicillins - Physicial Exam PE: GENERAL: Awake, alert, and fully oriented, in no acute distress HEAD: No signs of trauma EYES: PERRLA, EOMI, sclera anicteric, conjunctiva clear ENT: Auricles normal inspection, hearing grossly normal, nares patent, oropharynx clear without exudates. Dry mucosa NECK: Normal ROM, supple, no lymphadenopathy, JVD, or masses LUNGS: Breath sounds equal, clear to auscultation bilaterally. No wheezes, and no crackles HEART: Regular rate and rhythm, normal S1 and S2, no murmurs, rubs or gallops ABDOMEN: Soft, +mild periumbilical tenderness, normoactive bowel sounds. No guarding, no rebound. No masses EXTREMITIES: Normal range of motion, no edema. No clubbing or cyanosis. No c ords, erythema, or tenderness NEUROLOGICAL: Cranial nerves II through XII grossly intact. Normal speech, normal gait. Motor and sensation intact SKIN: Warm, dry, normal turgor, no rashes or lesions noted. - Medical Decision Making Pt with history of gastroparesis and cannabis use presents with N/V, similar to prior symptoms. Will treat symptomatically, DC home if improved. Discharge - Discharge Information Problems reviewed: Yes Clinical Impression/Diagnosis: Diabetic gastroparesis Condition: Stable - Follow up/Referral Referrals: Zita Ramos [Primary Care Provider] - - Patient Discharge Instructions - Post Discharge Activity
[2019-11-23] MEDS ORDERED: ACETAMINOPHEN INJECTION 100 ML IVPB ONE (21:10)
[2019-11-23 21:11] LABS: PLATELET ESTIMATE ADEQUATE
[2019-11-23] MEDS ORDERED: HALOPERIDOL DECANOATE 500 MG/5ML MDV IM ONE (21:45)
[2019-11-23] MEDS ORDERED: HALOPERIDOL LACTATE 5 MG/ML ONE (21:58)
[2019-11-23 23:39] VITALS: BP 155/89; PULSE 72; TEMP 99.2
== END 2019-11-24 00:41 | disposition home or self-care (01) ==
LOC: JER 18:32
PROC: 3E0333Z Introduction of Anti-inflammatory into Peripheral Vein, Percutaneous Approach (ICD-10-PCS; principal; 2019-11-23)
PROC: 3E033GC Introduction of Other Therapeutic Substance into Peripheral Vein, Percutaneous Approach (ICD-10-PCS; 2019-11-23)
PROC: 3E023GC Introduction of Other Therapeutic Substance into Muscle, Percutaneous Approach (ICD-10-PCS; 2019-11-23)
DX: E11.43 Type 2 diabetes mellitus with diabetic autonomic (poly)neuropathy (principal)
CPT/HCPCS: 36415; 80053; 83690; 85025; 99284-25; J0131

== ENCOUNTER 2020-01-19 20:07 | Inpatient (IN) | payer OTHER ==
[2020-01-19 20:12] VITALS: BMI 26.5
[2020-01-19] MEDS ORDERED: METOCLOPRAMIDE HCL INJECTION 10 MG/2 ML VIAL IVPB ONE (21:33)
[2020-01-19] MEDS ORDERED: SODIUM CHLORIDE 1,000 ML IV STA (21:33)
[2020-01-19] MEDS ORDERED: METOCLOPRAMIDE HCL INJECTION 10 MG/2 ML VIAL ONE (21:39)
[2020-01-19] MEDS ORDERED: HALOPERIDOL LACTATE 5 MG/ML IM ONE (22:03)
[2020-01-19 22:18] LABS: BASO % 0.5 % (0-2.0); EOS % 0.3 % (0-4.5); HEMATOCRIT 45.9 % (35.4-49); LYMPH % 5.2 % (8-40); MCH 31.4 pg (25.7-33.7); MCHC 32.7 g/dl (32.0-35.9); MEAN CELL VOLUME 96.1 fl (80-96); MEAN PLT VOLUME 8.6 fl (7.5-11.1); MONO % 2.7 % (3.8-10.2); NEUT % 91.3 % (42.8-82.8); PLATELET COUNT 211 K/MM3 (134-434); RBC 4.78 M/mm3 (4.00-5.60); RDW 13.9 % (11.9-15.9); WHITE BLOOD COUNT 12.7 K/mm3 (4.0-10.0)
[2020-01-19] MEDS ORDERED: HALOPERIDOL LACTATE 5 MG/ML ONE (22:41)
[2020-01-19 22:51] LABS: POTASSIUM 4.6 mmol/L (3.5-5.1)
[2020-01-19 22:52] LABS: ALBUMIN 4.3 g/dl (3.4-5.0); BLOOD UREA NITROGEN 12.8 mg/dL (7-18); CALCIUM 9.6 mg/dL (8.5-10.1)
[2020-01-19 22:55] LABS: CREATININE 1.3 mg/dL (0.55-1.3)
[2020-01-19 22:56] LABS: TOT PROT 7.7 g/dl (6.4-8.2)
[2020-01-19] MEDS ORDERED: SODIUM CHLORIDE 0.9% 500 ML INFUS.BAG IV ONE (23:19)
[2020-01-20] MEDS ORDERED: PANTOPRAZOLE SODIUM 40 MG VIAL IVPUSH ONE (00:36)
[2020-01-20] MEDS ORDERED: PANTOPRAZOLE SODIUM 40 MG VIAL ONE ×2 (01:09→10:44)
[2020-01-20] MEDS ORDERED: SODIUM CHLORIDE 1,000 ML IV SCH ×2 (02:00→08:15)
[2020-01-20] MEDS ORDERED: METOCLOPRAMIDE HCL INJECTION 10 MG/2 ML VIAL ONE ×2 (05:54→11:44)
[2020-01-20] MEDS: INSULIN SLIDING SCALE (NOVOLOG) 1 VIAL SQ SCH ×5 (06:13→22:28)
[2020-01-20] MEDS: METOCLOPRAMIDE HCL INJECTION 10 MG/2 ML VIAL IVPB SCH ×3 (07:35→18:31)
[2020-01-20 10:18] LABS: HEMOGLOBIN 11.1 GM/dL (11.7-16.9); MCH 32.4 pg (25.7-33.7); MCHC 33.7 g/dl (32.0-35.9); MEAN CELL VOLUME 96.2 fl (80-96); MEAN PLT VOLUME 8.3 fl (7.5-11.1); PLATELET COUNT 172 K/MM3 (134-434); RBC 3.43 M/mm3 (4.00-5.60); RDW 13.9 % (11.9-15.9); WHITE BLOOD COUNT 9.3 K/mm3 (4.0-10.0)
[2020-01-20 10:28] LABS: INR 1.5 (0.83-1.09); PROTHROMBIN TIME (PATIENT) 18.2 SEC (9.7-13.0)
[2020-01-20 10:31] LABS: ACTIVATED PTT 28.3 SECONDS (25.2-36.5)
[2020-01-20] MEDS: PANTOPRAZOLE SODIUM 40 MG VIAL IVPUSH SCH (10:44)
[2020-01-20 10:47] LABS: MAGNESIUM 1.3 mg/dL (1.8-2.4)
[2020-01-20 10:50] LABS: CREATININE 0.6 mg/dL (0.55-1.3); PHOSPHOROUS 1.7 mg/dL (2.5-4.9)
[2020-01-20 10:52] LABS: BILIRUBIN,TOTAL 0.7 mg/dL (0.2-1)
[2020-01-20 11:32] LABS: ALBUMIN 2.2 g/dl (3.4-5.0); TOT PROT 4.1 g/dl (6.4-8.2)
[2020-01-20] MEDS ORDERED: NAPH,MB-DB/K PH,MBDB POWDER PACKET PO ONE (11:37)
[2020-01-20] MEDS ORDERED: MAGNESIUM SULF 50% (8.12 MEQ/2 ML-1 GM VIAL) IVPB ONE (11:37)
[2020-01-20 11:41] LABS: CALCIUM 5.4 mg/dL (8.5-10.1); POTASSIUM 2.5 mmol/L (3.5-5.1)
[2020-01-20] MEDS ORDERED: KCL 10 MEQ IVPB 10 MEQ/100 ML INFUS.BAG IVPB ONE (11:44)
[2020-01-20] MEDS ORDERED: MAGNESIUM SULFATE IN WATER 2 GM/50 ML IVPB IVPB ONE ×2 (11:45→11:48)
[2020-01-20 13:44] LABS: BLOOD UREA NITROGEN 13.3 mg/dL (7-18); CALCIUM 8.3 mg/dL (8.5-10.1); CREATININE 1.1 mg/dL (0.55-1.3); MAGNESIUM 2.7 mg/dL (1.8-2.4); PHOSPHOROUS 3.5 mg/dL (2.5-4.9); POTASSIUM 4.5 mmol/L (3.5-5.1)
[2020-01-20] MEDS ORDERED: SODIUM CHLORIDE 500 ML IV STA (14:34)
[2020-01-20] MEDS ORDERED: METOCLOPRAMIDE HCL INJECTION 10 MG/2 ML VIAL IVPUSH ONE (21:49)
[2020-01-21] MEDS ORDERED: LACTATED RINGERS SOLUTION 1,000 ML/1,000 ML INFUS.BAG IV SCH ×2 (01:15→15:15)
[2020-01-21] MEDS: INSULIN SLIDING SCALE (NOVOLOG) 1 VIAL SQ SCH ×4 (06:46→21:14)
[2020-01-21] MEDS: METOCLOPRAMIDE HCL INJECTION 10 MG/2 ML VIAL IVPB SCH ×3 (07:41→16:52)
[2020-01-21] MEDS: PANTOPRAZOLE SODIUM 40 MG VIAL IVPUSH SCH (09:50)
[2020-01-21] MEDS ORDERED: NAPH,MB-DB/K PH,MBDB POWDER PACKET PO SCH (15:00)
[2020-01-21] MEDS ORDERED: ACETAMINOPHEN 1000 MG/100 ML VIAL (NON FORMULARY) IVPB ONE (20:15)
[2020-01-21 21:19] LABS: BASO % 0.2 % (0-2.0); EOS % 0.4 % (0-4.5); HEMATOCRIT 46.8 % (35.4-49); HEMOGLOBIN 15.3 GM/dL (11.7-16.9); LYMPH % 15.2 % (8-40); MCH 31.7 pg (25.7-33.7); MCHC 32.7 g/dl (32.0-35.9); MEAN PLT VOLUME 8.8 fl (7.5-11.1); MONO % 10.8 % (3.8-10.2); NEUT % 73.4 % (42.8-82.8); PLATELET COUNT 227 K/MM3 (134-434); RBC 4.83 M/mm3 (4.00-5.60); RDW 13.9 % (11.9-15.9); WHITE BLOOD COUNT 12.8 K/mm3 (4.0-10.0)
[2020-01-21 21:44] LABS: POTASSIUM 3.5 mmol/L (3.5-5.1)
[2020-01-21 21:46] LABS: BLOOD UREA NITROGEN 13.4 mg/dL (7-18); CALCIUM 8.9 mg/dL (8.5-10.1)
[2020-01-21 21:49] LABS: CREATININE 1.1 mg/dL (0.55-1.3)
[2020-01-21 21:50] LABS: PHOSPHOROUS 2.1 mg/dL (2.5-4.9)
[2020-01-22 01:10] LABS: URINE BARBITURATES NEGATIVE ng/ml (CUTOFF=200)
[2020-01-22 01:12] LABS: COCAINE, UR NEGATIVE ng/ml (CUTOFF=300); METHADONE, UR NEGATIVE ng/ml (CUTOFF=300); PHENCYCLIDINE,URINE NEGATIVE ng/ml (CUTOFF=25)
[2020-01-22 01:40] LABS: OPIATES, URI NEGATIVE ng/ml (CUTOFF=300); URINE AMPHETAMINES NEGATIVE ng/ml (CUTOFF=500); URINE BENZODIAZEPINES NEGATIVE ng/ml (CUTOFF=200)
[2020-01-22] MEDS ORDERED: TRIMETHOBENZAMIDE HCL 200MG/2ML INJ IM ONE (02:58)
[2020-01-22] MEDS ORDERED: ACETAMINOPHEN 1000 MG/100 ML VIAL (NON FORMULARY) IVPB ONE (02:59)
[2020-01-22] MEDS: INSULIN SLIDING SCALE (NOVOLOG) 1 VIAL SQ SCH ×2 (06:13→11:48)
[2020-01-22] MEDS: METOCLOPRAMIDE HCL INJECTION 10 MG/2 ML VIAL IVPB SCH ×2 (06:14→11:45)
[2020-01-22 08:39] LABS: BASO % 0.3 % (0-2.0); EOS % 0.2 % (0-4.5); HEMATOCRIT 44.6 % (35.4-49); HEMOGLOBIN 14.6 GM/dL (11.7-16.9); LYMPH % 12.5 % (8-40); MCH 31.1 pg (25.7-33.7); MCHC 32.8 g/dl (32.0-35.9); MEAN CELL VOLUME 94.9 fl (80-96); MEAN PLT VOLUME 9.1 fl (7.5-11.1); MONO % 9.4 % (3.8-10.2); NEUT % 77.6 % (42.8-82.8); PLATELET COUNT 245 K/MM3 (134-434); RDW 13.5 % (11.9-15.9); WHITE BLOOD COUNT 13.2 K/mm3 (4.0-10.0)
[2020-01-22 08:55] LABS: POTASSIUM 3.5 mmol/L (3.5-5.1)
[2020-01-22 08:57] LABS: BLOOD UREA NITROGEN 14.5 mg/dL (7-18)
[2020-01-22 09:00] LABS: CALCIUM 8.7 mg/dL (8.5-10.1)
[2020-01-22 09:04] LABS: PHOSPHOROUS 2.5 mg/dL (2.5-4.9)
[2020-01-22 09:06] LABS: MAGNESIUM 1.9 mg/dL (1.8-2.4)
[2020-01-22] MEDS: PANTOPRAZOLE SODIUM 40 MG VIAL IVPUSH SCH (09:33)
[2020-01-22 16:03] VITALS: BP 141/95; PULSE 83; TEMP 98.5
== END 2020-01-22 17:00 | disposition home or self-care (01) | DRG 48 ==
LOC: JER 20:07 → JERBED 01-20 01:53 → J6WEST-2 01-20 14:26
PROVIDERS: ADMIT Internal Medicine; ATTEND Internal Medicine
DX: E11.43 Type 2 diabetes mellitus with diabetic autonomic (poly)neuropathy (principal); K31.84 Gastroparesis; I10 Essential (primary) hypertension; F17.210 Nicotine dependence, cigarettes, uncomplicated; F12.90 Cannabis use, unspecified, uncomplicated; D72.829 Elevated white blood cell count, unspecified; R11.2 Nausea with vomiting, unspecified; J45.909 Unspecified asthma, uncomplicated; Z88.0 Allergy status to penicillin; Z79.4 Long term (current) use of insulin
CPT/HCPCS: 36415; 80048; 80053; 80307; 82010; 82962; 83036; 83735; 84100; 85025; 85027; 85610; 85730; 93005; 93010; 99285-25; C9803; J0131; U0003

== ENCOUNTER 2020-06-06 20:07 | Inpatient (IN) | payer OTHER ==
[2020-06-06] MEDS ORDERED: METOCLOPRAMIDE HCL INJECTION 10 MG/2 ML VIAL IVPUSH ONE (22:39)
[2020-06-06] MEDS ORDERED: LACTATED RINGERS SOLUTION 1000 ML INFUS.BAG IV ONE (22:40)
[2020-06-06] MEDS ORDERED: METOCLOPRAMIDE HCL INJECTION 10 MG/2 ML VIAL ONE (23:58)
[2020-06-07 00:02] LABS: BASO % 0.3 % (0-2.0); HEMOGLOBIN 14.9 GM/dL (11.7-16.9); LYMPH % 6.1 % (8-40); MCH 32.2 pg (25.7-33.7); MCHC 33.9 g/dl (32.0-35.9); MEAN CELL VOLUME 94.9 fl (80-96); MEAN PLT VOLUME 8.4 fl (7.5-11.1); MONO % 4.5 % (3.8-10.2); NEUT % 89.1 % (42.8-82.8); PLATELET COUNT 285 K/MM3 (134-434); RBC 4.63 M/mm3 (4.00-5.60); RDW 14.3 % (11.9-15.9); WHITE BLOOD COUNT 13.4 K/mm3 (4.0-10.0)
[2020-06-07 00:22] LABS: CALCIUM 9.6 mg/dL (8.5-10.1)
[2020-06-07 00:23] LABS: BLOOD UREA NITROGEN 17.3 mg/dL (7-18); MAGNESIUM 1.9 mg/dL (1.8-2.4)
[2020-06-07 00:26] LABS: CREATININE 1.4 mg/dL (0.55-1.3)
[2020-06-07 00:27] LABS: BILIRUBIN,TOTAL 0.8 mg/dL (0.2-1); TOT PROT 7.9 g/dl (6.4-8.2)
[2020-06-07] MEDS ORDERED: LACTATED RINGERS SOLUTION 1000 ML INFUS.BAG IV ONE (00:50)
[2020-06-07 00:57] LABS: URINE APPEARANCE CLEAR; URINE BILIRUBIN NEGATIVE (NEGATIVE); URINE COLOR YELLOW; URINE GLUCOSE (UA) 3+ (NEGATIVE); URINE KETONE 3+ (NEGATIVE); URINE LEUK ESTERASE NEGATIVE (NEGATIVE); URINE NITRITE NEGATIVE (NEGATIVE); URINE PROTEIN NEGATIVE (NEGATIVE); URINE UROBILINOGEN 0.2 mg/dL (0.2-1.0)
[2020-06-07 01:07] LABS: COCAINE, UR NEGATIVE ng/ml (CUTOFF=300); URINE AMPHETAMINES NEGATIVE ng/ml (CUTOFF=500); URINE BARBITURATES NEGATIVE ng/ml (CUTOFF=200)
[2020-06-07 01:08] LABS: METHADONE, UR NEGATIVE ng/ml (CUTOFF=300); OPIATES, URI NEGATIVE ng/ml (CUTOFF=300); PHENCYCLIDINE,URINE NEGATIVE ng/ml (CUTOFF=25); URINE BENZODIAZEPINES NEGATIVE ng/ml (CUTOFF=200)
[2020-06-07] MEDS ORDERED: ONDANSETRON 4 MG/2 ML VIAL IVPUSH ONE (04:44)
[2020-06-07] MEDS ORDERED: ONDANSETRON 4 MG/2 ML VIAL ONE (05:08)
[2020-06-07] MEDS ORDERED: HEPARIN NA (PORCINE) 5,000 UNITS/ML 1ML VIAL ONE (09:32)
[2020-06-07] MEDS: SODIUM CHLORIDE 1,000 ML IV SCH ×3 (09:45→23:40)
[2020-06-07] MEDS: HEPARIN NA (PORCINE) 5,000 UNITS/ML 1ML VIAL SQ SCH ×3 (09:45→21:24)
[2020-06-07] MEDS: METOCLOPRAMIDE HCL INJECTION 10 MG/2 ML VIAL IVPUSH PRN ×2 (11:40→20:03)
[2020-06-07] MEDS: INSULIN (LEVEMIR) 100 UNITS/ML UNITS SQ SCH (11:40)
[2020-06-07] MEDS: INSULIN SLIDING SCALE (NOVOLOG) 1 VIAL SQ SCH ×3 (11:40→21:23)
[2020-06-07 14:21] LABS: LIPASE 62 U/L (73-393)
[2020-06-07 14:22] LABS: AMYLASE 72 U/L (25-115)
[2020-06-07] MEDS: ONDANSETRON 4 MG/2 ML VIAL IVPUSH PRN (16:33)
[2020-06-07 17:19] VITALS: BMI 28.7
[2020-06-07] MEDS ORDERED: FAMOTIDINE 10 MG TABLET PO ONE (20:15)
[2020-06-07] MEDS ORDERED: MAG HYDROX/AL HYDROX/SIMETH 30 ML UNIT-DOSE CUP PO ONE (20:15)
[2020-06-07] MEDS ORDERED: ACETAMINOPHEN 325 MG TABLET (FP) PO PRN (20:16)
[2020-06-07] MEDS ORDERED: FAMOTIDINE 20 MG/50 ML IVPB 20 MG/50 ML MG IVPB ONE (20:25)
[2020-06-07] MEDS ORDERED: ACETAMINOPHEN 1000 MG/100 ML VIAL (NON FORMULARY) IVPB ONE (21:09)
[2020-06-08] MEDS: ONDANSETRON 4 MG/2 ML VIAL IVPUSH PRN ×2 (02:23→10:40)
[2020-06-08] MEDS: METOCLOPRAMIDE HCL INJECTION 10 MG/2 ML VIAL IVPUSH PRN ×2 (06:39→12:24)
[2020-06-08] MEDS: INSULIN SLIDING SCALE (NOVOLOG) 1 VIAL SQ SCH ×4 (06:39→22:17)
[2020-06-08] MEDS: HEPARIN NA (PORCINE) 5,000 UNITS/ML 1ML VIAL SQ SCH ×3 (06:40→21:46)
[2020-06-08] MEDS: SODIUM CHLORIDE 1,000 ML IV SCH ×2 (06:50→11:30)
[2020-06-08 07:49] LABS: BASO % 0.6 % (0-2.0); EOS % 0.1 % (0-4.5); HEMATOCRIT 41.7 % (35.4-49); LYMPH % 13.9 % (8-40); MCH 31.7 pg (25.7-33.7); MCHC 33.6 g/dl (32.0-35.9); MEAN CELL VOLUME 94.4 fl (80-96); MEAN PLT VOLUME 8.6 fl (7.5-11.1); MONO % 11.4 % (3.8-10.2); PLATELET COUNT 283 K/MM3 (134-434); RBC 4.42 M/mm3 (4.00-5.60); RDW 13.8 % (11.9-15.9); WHITE BLOOD COUNT 12.2 K/mm3 (4.0-10.0)
[2020-06-08 08:21] LABS: CALCIUM 9.1 mg/dL (8.5-10.1)
[2020-06-08 08:25] LABS: ALBUMIN 3.5 g/dl (3.4-5.0); BLOOD UREA NITROGEN 15.7 mg/dL (7-18); MAGNESIUM 2.1 mg/dL (1.8-2.4)
[2020-06-08 08:26] LABS: CREATININE 1.2 mg/dL (0.55-1.3)
[2020-06-08 08:28] LABS: PHOSPHOROUS 2.2 mg/dL (2.5-4.9)
[2020-06-08 08:29] LABS: BILIRUBIN,TOTAL 1.2 mg/dL (0.2-1); TOT PROT 6.9 g/dl (6.4-8.2)
[2020-06-08] MEDS: amLODIPine BESYLATE 5 MG TABLET (FP) PO SCH ×2 (09:13→09:18)
[2020-06-08] MEDS ORDERED: ERYTHROMYCIN INJECTION - 250 MG in SODIUM CHLORIDE 250 ML IVPB SCH (11:15)
[2020-06-08] MEDS: INSULIN (LEVEMIR) 100 UNITS/ML UNITS SQ SCH ×2 (11:30→22:17)
[2020-06-08] MEDS ORDERED: LISINOPRIL 20 MG TABLET PO ONE (14:30)
[2020-06-08] MEDS: SODIUM CHLORIDE IVPB SCH (16:30)
[2020-06-08] MEDS: ERYTHROMYCIN IVPB SCH (16:30)
[2020-06-08] MEDS: KCL 10 MEQ IVPB 10 MEQ/100 ML INFUS.BAG IVPB SCH ×3 (17:26→21:46)
[2020-06-08] MEDS ORDERED: PT OWN MED DRAWER 7, Y5N ONE (21:04)
[2020-06-08] MEDS ORDERED: INSULIN (NOVOLOG) ASPART 100 UNITS/ML 10ML VIAL ONE (22:13)
[2020-06-08] MEDS ORDERED: amLODIPine BESYLATE 5 MG TABLET (FP) PO ONE (23:48)
[2020-06-09] MEDS: ERYTHROMYCIN IVPB SCH ×2 (00:54→07:09)
[2020-06-09] MEDS: SODIUM CHLORIDE IVPB SCH ×2 (00:54→07:09)
[2020-06-09] MEDS: SODIUM CHLORIDE 1,000 ML IV SCH ×4 (02:56→13:38)
[2020-06-09] MEDS: HEPARIN NA (PORCINE) 5,000 UNITS/ML 1ML VIAL SQ SCH ×3 (06:50→22:25)
[2020-06-09] MEDS: INSULIN SLIDING SCALE (NOVOLOG) 1 VIAL SQ SCH ×4 (07:05→22:25)
[2020-06-09] MEDS: INSULIN (LEVEMIR) 100 UNITS/ML UNITS SQ SCH ×2 (07:06→22:25)
[2020-06-09] MEDS: METOCLOPRAMIDE HCL INJECTION 10 MG/2 ML VIAL IVPUSH PRN ×2 (07:06→15:28)
[2020-06-09 07:39] LABS: BASO % 0.4 % (0-2.0); EOS % 0.2 % (0-4.5); HEMATOCRIT 43.8 % (35.4-49); HEMOGLOBIN 14.8 GM/dL (11.7-16.9); LYMPH % 17.7 % (8-40); MCH 31.8 pg (25.7-33.7); MCHC 33.7 g/dl (32.0-35.9); MEAN CELL VOLUME 94.4 fl (80-96); MEAN PLT VOLUME 8.6 fl (7.5-11.1); MONO % 13.2 % (3.8-10.2); NEUT % 68.5 % (42.8-82.8); PLATELET COUNT 286 K/MM3 (134-434); RBC 4.65 M/mm3 (4.00-5.60); WHITE BLOOD COUNT 11.5 K/mm3 (4.0-10.0)
[2020-06-09 07:55] LABS: CALCIUM 8.8 mg/dL (8.5-10.1)
[2020-06-09 07:57] LABS: ALBUMIN 3.5 g/dl (3.4-5.0); BLOOD UREA NITROGEN 12.8 mg/dL (7-18); MAGNESIUM 2.3 mg/dL (1.8-2.4)
[2020-06-09 07:59] LABS: CREATININE 1.1 mg/dL (0.55-1.3); PHOSPHOROUS 2.1 mg/dL (2.5-4.9)
[2020-06-09 08:01] LABS: BILIRUBIN,TOTAL 1.2 mg/dL (0.2-1); TOT PROT 7.1 g/dl (6.4-8.2)
[2020-06-09] MEDS: amLODIPine BESYLATE 5 MG TABLET (FP) PO SCH (09:03)
[2020-06-09] MEDS: ERYTHROMYCIN BASE 250 MG TAB PO SCH ×2 (11:29→21:02)
[2020-06-09] MEDS: METOCLOPRAMIDE HCL INJECTION 10 MG/2 ML VIAL IVPUSH SCH ×2 (15:29→21:02)
[2020-06-09] MEDS ORDERED: NITROGLYCERIN 2% OINTMENT - 1GM PACKET TD PRN (18:59)
[2020-06-09] MEDS ORDERED: PT OWN MED DRAWER 7, Y5N ONE (20:58)
[2020-06-09] MEDS ORDERED: INSULIN (NOVOLOG) ASPART 100 UNITS/ML 10ML VIAL ONE (21:51)
[2020-06-10] MEDS: METOCLOPRAMIDE HCL INJECTION 10 MG/2 ML VIAL IVPUSH SCH ×4 (02:33→21:17)
[2020-06-10] MEDS: ERYTHROMYCIN BASE 250 MG TAB PO SCH ×2 (02:33→09:59)
[2020-06-10] MEDS ORDERED: ONDANSETRON 4 MG/2 ML VIAL IVPUSH ONE (03:23)
[2020-06-10] MEDS ORDERED: ACETAMINOPHEN 1000 MG/100 ML VIAL (NON FORMULARY) IVPB ONE (05:37)
[2020-06-10] MEDS: HEPARIN NA (PORCINE) 5,000 UNITS/ML 1ML VIAL SQ SCH ×3 (05:46→21:17)
[2020-06-10] MEDS: INSULIN SLIDING SCALE (NOVOLOG) 1 VIAL SQ SCH ×4 (06:29→22:04)
[2020-06-10] MEDS: INSULIN (LEVEMIR) 100 UNITS/ML UNITS SQ SCH ×2 (06:29→22:05)
[2020-06-10 07:38] LABS: BASO % 0.5 % (0-2.0); EOS % 0.2 % (0-4.5); HEMATOCRIT 42.3 % (35.4-49); HEMOGLOBIN 14.6 GM/dL (11.7-16.9); LYMPH % 18.4 % (8-40); MCH 31.8 pg (25.7-33.7); MCHC 34.4 g/dl (32.0-35.9); MEAN CELL VOLUME 92.2 fl (80-96); MEAN PLT VOLUME 8.3 fl (7.5-11.1); MONO % 14.1 % (3.8-10.2); NEUT % 66.8 % (42.8-82.8); PLATELET COUNT 282 K/MM3 (134-434); RBC 4.59 M/mm3 (4.00-5.60); RDW 13.8 % (11.9-15.9); WHITE BLOOD COUNT 11.3 K/mm3 (4.0-10.0)
[2020-06-10 08:07] LABS: ALBUMIN 3.3 g/dl (3.4-5.0)
[2020-06-10 08:08] LABS: BILIRUBIN,TOTAL 0.9 mg/dL (0.2-1); TOT PROT 6.5 g/dl (6.4-8.2)
[2020-06-10 08:10] LABS: CALCIUM 8.3 mg/dL (8.5-10.1); MAGNESIUM 2.1 mg/dL (1.8-2.4); PHOSPHOROUS 2.9 mg/dL (2.5-4.9)
[2020-06-10] MEDS: SODIUM CHLORIDE 1,000 ML IV SCH ×2 (09:57→20:47)
[2020-06-10] MEDS: amLODIPine BESYLATE 5 MG TABLET (FP) PO SCH (09:59)
[2020-06-10] MEDS ORDERED: ERYTHROMYCIN IVPB SCH (18:00)
[2020-06-10] MEDS ORDERED: SODIUM CHLORIDE IVPB SCH (18:00)
[2020-06-10] MEDS: SODIUM CHLORIDE IVPB SCH (18:18)
[2020-06-10] MEDS: ERYTHROMYCIN IVPB SCH (18:18)
[2020-06-10] MEDS ORDERED: PT OWN MED DRAWER 7, Y5N ONE ×2 (20:26→20:27)
[2020-06-11] MEDS ORDERED: PT OWN MED DRAWER 7, Y5N ONE (01:43)
[2020-06-11] MEDS: SODIUM CHLORIDE IVPB SCH ×2 (02:38→10:52)
[2020-06-11] MEDS: ERYTHROMYCIN IVPB SCH ×2 (02:38→10:52)
[2020-06-11] MEDS: METOCLOPRAMIDE HCL INJECTION 10 MG/2 ML VIAL IVPUSH SCH ×2 (04:29→10:53)
[2020-06-11] MEDS: HEPARIN NA (PORCINE) 5,000 UNITS/ML 1ML VIAL SQ SCH ×2 (05:48→15:10)
[2020-06-11 07:25] LABS: BASO % 1.2 % (0-2.0); EOS % 0.7 % (0-4.5); HEMATOCRIT 42.6 % (35.4-49); HEMOGLOBIN 14.5 GM/dL (11.7-16.9); LYMPH % 32.8 % (8-40); MCH 32.2 pg (25.7-33.7); MEAN CELL VOLUME 94.6 fl (80-96); MEAN PLT VOLUME 8.5 fl (7.5-11.1); MONO % 15.5 % (3.8-10.2); NEUT % 49.8 % (42.8-82.8); PLATELET COUNT 249 K/MM3 (134-434); RDW 13.7 % (11.9-15.9); WHITE BLOOD COUNT 8.3 K/mm3 (4.0-10.0)
[2020-06-11 07:49] LABS: ALBUMIN 3.1 g/dl (3.4-5.0); BLOOD UREA NITROGEN 14.5 mg/dL (7-18)
[2020-06-11 07:50] LABS: CALCIUM 7.9 mg/dL (8.5-10.1)
[2020-06-11 07:52] LABS: CREATININE 1.1 mg/dL (0.55-1.3); PHOSPHOROUS 2.8 mg/dL (2.5-4.9)
[2020-06-11] MEDS: INSULIN (LEVEMIR) 100 UNITS/ML UNITS SQ SCH (07:52)
[2020-06-11] MEDS: INSULIN SLIDING SCALE (NOVOLOG) 1 VIAL SQ SCH ×2 (07:52→11:06)
[2020-06-11 07:55] LABS: BILIRUBIN,TOTAL 0.8 mg/dL (0.2-1); TOT PROT 6.2 g/dl (6.4-8.2)
[2020-06-11 07:57] LABS: MAGNESIUM 1.8 mg/dL (1.8-2.4)
[2020-06-11] MEDS ORDERED: ENALAPRIL MALEATE 10 MG TABLET PO SCH (10:00)
[2020-06-11] MEDS: amLODIPine BESYLATE 5 MG TABLET (FP) PO SCH (10:53)
[2020-06-11 13:45] VITALS: BP 149/81; PULSE 80; TEMP 98.7
== END 2020-06-11 15:50 | disposition home or self-care (01) | DRG 48 ==
LOC: JER 20:07 → JERBED 06-07 04:44 → OBSVTOIN 06-07 09:17 → J7W 06-07 09:59
PROVIDERS: ADMIT Internal Medicine; ATTEND Student in an Organized Health Care Education/Training Program
DX: E11.43 Type 2 diabetes mellitus with diabetic autonomic (poly)neuropathy (principal); N17.9 Acute kidney failure, unspecified; K31.84 Gastroparesis; E86.0 Dehydration; F12.988 Cannabis use, unspecified with other cannabis-induced disorder; Z79.4 Long term (current) use of insulin
CPT/HCPCS: 36415; 71045-TC-FY; 74176-TC; 76775-TC; 80053; 80307; 81003; 82150; 82550; 82553; 82570; 82962; 83036; 83690; 83735; 84100; 84156; 84443; 84479; 84484; 85025; 87086; 93005; 93010; 99285-25; C9803; G0378; J0131; J1644; U0003; U0005

== ENCOUNTER 2020-08-09 04:20 | Inpatient (IN) | payer OTHER ==
[2020-08-09 04:29] VITALS: BMI 28.7
[2020-08-09] MEDS ORDERED: METOCLOPRAMIDE HCL INJECTION 10 MG/2 ML VIAL IVPB ONE (04:45)
[2020-08-09] MEDS ORDERED: SODIUM CHLORIDE 0.9% 500 ML INFUS.BAG IV ONE (04:45)
[2020-08-09] MEDS ORDERED: FAMOTIDINE 20 MG/50 ML IVPB 20 MG/50 ML MG IVPB ONE ×2 (04:45→05:33)
[2020-08-09] MEDS ORDERED: METOCLOPRAMIDE HCL INJECTION 10 MG/2 ML VIAL ONE (04:51)
[2020-08-09 05:21] LABS: BASO % 0.2 % (0-2.0); EOS % 0.2 % (0-4.5); HEMATOCRIT 47.6 % (35.4-49); HEMOGLOBIN 15.9 GM/dL (11.7-16.9); LYMPH % 7.8 % (8-40); MCH 31.4 pg (25.7-33.7); MCHC 33.4 g/dl (32.0-35.9); MEAN CELL VOLUME 94.1 fl (80-96); MEAN PLT VOLUME 8.1 fl (7.5-11.1); MONO % 3.1 % (3.8-10.2); NEUT % 88.7 % (42.8-82.8); PLATELET COUNT 310 10^3/uL (134-434); RBC 5.06 M/mm3 (4.00-5.60); RDW 14.6 % (11.9-15.9); WHITE BLOOD COUNT 15.7 K/mm3 (4.0-10.0)
[2020-08-09 05:29] LABS: VENOUS BASE EXCESS -8.8 mmol/L (-2-2); VENOUS O2 SATURATION 77.4 % (70-80); VENOUS PCO2 26.3 mmHg (38-52); VENOUS PH 7.361 (7.310-7.410)
[2020-08-09 05:41] LABS: CHLORIDE 105 mmol/L (98-107); SODIUM 137 mmol/L (136-145)
[2020-08-09 05:44] LABS: ALBUMIN 4.2 g/dl (3.4-5.0); ANION GAP 12 MMOL/L (8-16); BLOOD UREA NITROGEN 24.4 mg/dL (7-18); CALCIUM 9.5 mg/dL (8.5-10.1); CO2 20 mmol/L (21-32); GLUCOSE,RANDOM 273 mg/dL (74-106)
[2020-08-09 05:45] LABS: LIPASE 44 U/L (73-393)
[2020-08-09 05:47] LABS: CREATININE 1.5 mg/dL (0.55-1.3); SGOT/AST 47 U/L (15-37); SGPT/ALT 33 U/L (13-61)
[2020-08-09 05:48] LABS: BILIRUBIN,TOTAL 0.7 mg/dL (0.2-1)
[2020-08-09] MEDS ORDERED: ERYTHROMYCIN *INJECTION* 500 MG VIAL IVPB ONE ×2 (05:49→19:15)
[2020-08-09 05:50] LABS: ALK PHOS 106 U/L (45-117)
[2020-08-09] MEDS ORDERED: PROCHLORPERAZINE INJECTION 10 MG/2 ML VIAL IM ONE (05:51)
[2020-08-09] MEDS ORDERED: PROCHLORPERAZINE INJECTION 10 MG/2 ML VIAL ONE (05:55)
[2020-08-09 06:18] LABS: LACTIC ACID 3.6 mmol/L (0.4-2.0)
[2020-08-09] MEDS ORDERED: LACTATED RINGERS SOLUTION 1000 ML INFUS.BAG IV ONE (06:20)
[2020-08-09] MEDS ORDERED: ONDANSETRON 4 MG/2 ML VIAL IVPUSH ONE (07:55)
[2020-08-09] MEDS ORDERED: ONDANSETRON 4 MG/2 ML VIAL ONE (07:56)
[2020-08-09 09:18] LABS: PH,URINE 5.5 (5.0-8.0); URINE APPEARANCE CLEAR; URINE BILIRUBIN NEGATIVE (NEGATIVE); URINE COLOR YELLOW; URINE GLUCOSE (UA) 3+ (NEGATIVE); URINE KETONE 3+ (NEGATIVE); URINE LEUK ESTERASE NEGATIVE (NEGATIVE); URINE NITRITE NEGATIVE (NEGATIVE); URINE PROTEIN TRACE (NEGATIVE); URINE UROBILINOGEN 0.2 mg/dL (0.2-1.0)
[2020-08-09] MEDS: SODIUM CHLORIDE 1,000 ML IV SCH ×2 (10:55→21:43)
[2020-08-09] MEDS: METOCLOPRAMIDE HCL INJECTION 10 MG/2 ML VIAL IVPUSH SCH ×2 (10:55→16:17)
[2020-08-09] MEDS: amLODIPine BESYLATE 10 MG TABLET (FP) PO SCH (10:55)
[2020-08-09] MEDS: INSULIN SLIDING SCALE (NOVOLOG) 1 VIAL SQ SCH ×3 (12:33→21:53)
[2020-08-09] MEDS: INSULIN (LEVEMIR) 100 UNITS/ML UNITS SQ SCH (12:33)
[2020-08-09] MEDS: ACETAMINOPHEN 1000 MG/100 ML VIAL (NON FORMULARY) IVPB PRN ×2 (14:59→21:42)
[2020-08-09] MEDS: HEPARIN NA (PORCINE) 5,000 UNITS/ML 1ML VIAL SQ SCH ×2 (15:00→21:53)
[2020-08-09] MEDS ORDERED: PT OWN MED DRAWER 7, Y5N ONE (15:52)
[2020-08-09 16:55] LABS: CALCIUM 8.6 mg/dL (8.5-10.1)
[2020-08-09 16:56] LABS: BLOOD UREA NITROGEN 23.2 mg/dL (7-18)
[2020-08-09 16:59] LABS: CREATININE 1.5 mg/dL (0.55-1.3)
[2020-08-09 17:09] LABS: LACTIC ACID 2.4 mmol/L (0.4-2.0)
[2020-08-09] MEDS: ERYTHROMYCIN INJECTION - 250 MG in SODIUM CHLORIDE 100 ML IVPB SCH (17:27)
[2020-08-09] MEDS ORDERED: ERYTHROMYCIN INJECTION - 250 MG in SODIUM CHLORIDE 100 ML IVPB ONE (20:00)
[2020-08-10] MEDS: ACETAMINOPHEN 1000 MG/100 ML VIAL (NON FORMULARY) IVPB PRN (05:33)
[2020-08-10] MEDS: HEPARIN NA (PORCINE) 5,000 UNITS/ML 1ML VIAL SQ SCH ×3 (06:23→21:28)
[2020-08-10] MEDS: INSULIN SLIDING SCALE (NOVOLOG) 1 VIAL SQ SCH ×4 (06:24→21:28)
[2020-08-10] MEDS: INSULIN (LEVEMIR) 100 UNITS/ML UNITS SQ SCH (06:24)
[2020-08-10] MEDS: METOCLOPRAMIDE HCL INJECTION 10 MG/2 ML VIAL IVPUSH SCH ×3 (06:25→16:35)
[2020-08-10] MEDS: SODIUM CHLORIDE 1,000 ML IV SCH ×2 (06:53→09:48)
[2020-08-10] MEDS: ERYTHROMYCIN INJECTION - 250 MG in SODIUM CHLORIDE 100 ML IVPB SCH ×3 (06:53→16:17)
[2020-08-10 09:39] LABS: HEMATOCRIT 42.9 % (35.4-49); HEMOGLOBIN 14.1 GM/dL (11.7-16.9); MCH 31.3 pg (25.7-33.7); MCHC 32.9 g/dl (32.0-35.9); MEAN CELL VOLUME 95.1 fl (80-96); MEAN PLT VOLUME 8.9 fl (7.5-11.1); PLATELET COUNT 267 10^3/uL (134-434); RBC 4.51 M/mm3 (4.00-5.60); WHITE BLOOD COUNT 13.3 K/mm3 (4.0-10.0)
[2020-08-10] MEDS: amLODIPine BESYLATE 10 MG TABLET (FP) PO SCH (09:47)
[2020-08-10 09:54] LABS: BLOOD UREA NITROGEN 18.8 mg/dL (7-18)
[2020-08-10 09:55] LABS: ALBUMIN 3.6 g/dl (3.4-5.0); CALCIUM 8.5 mg/dL (8.5-10.1)
[2020-08-10 09:56] LABS: MAGNESIUM 2.3 mg/dL (1.8-2.4)
[2020-08-10 09:58] LABS: CREATININE 1.1 mg/dL (0.55-1.3)
[2020-08-10 09:59] LABS: PHOSPHOROUS 2.3 mg/dL (2.5-4.9)
[2020-08-10 10:00] LABS: BILIRUBIN,TOTAL 0.8 mg/dL (0.2-1); TOT PROT 6.8 g/dl (6.4-8.2)
[2020-08-10] MEDS ORDERED: PT OWN MED DRAWER 7, Y5N ONE (11:04)
[2020-08-10] MEDS ORDERED: LORazepam 2 MG/ML SDV VIAL IVPUSH ONE (11:41)
[2020-08-10] MEDS ORDERED: ACETAMINOPHEN 1000 MG/100 ML VIAL (NON FORMULARY) IVPB PRN (11:42)
[2020-08-10 15:47] LABS: URINE AMPHETAMINES NEGATIVE (NEGATIVE)
[2020-08-10 15:48] LABS: COCAINE, UR NEGATIVE (NEGATIVE); METHADONE, UR NEGATIVE (NEGATIVE); PHENCYCLIDINE,URINE NEGATIVE (NEGATIVE)
[2020-08-10 15:49] LABS: OPIATES, URI NEGATIVE (NEGATIVE); URINE BARBITURATES NEGATIVE (NEGATIVE); URINE BENZODIAZEPINES NEGATIVE (NEGATIVE)
[2020-08-10] MEDS ORDERED: INSULIN SLIDING SCALE (NOVOLOG) 1 VIAL SQ ONE (16:50)
[2020-08-10] MEDS: ACETAMINOPHEN 325 MG TABLET (FP) PO ONE ×2 (17:24→17:27)
[2020-08-10] MEDS ORDERED: ACETAMINOPHEN 1000 MG/100 ML VIAL (NON FORMULARY) IVPB ONE (17:44)
[2020-08-10] MEDS ORDERED: TRIMETHOBENZAMIDE HCL 200MG/2ML INJ IM ONE (22:40)
[2020-08-10] MEDS ORDERED: ONDANSETRON 4 MG/2 ML VIAL IVPUSH ONE (23:04)
[2020-08-11] MEDS ORDERED: ACETAMINOPHEN 1000 MG/100 ML VIAL (NON FORMULARY) IVPB ONE (01:06)
[2020-08-11] MEDS: SODIUM CHLORIDE 1,000 ML IV SCH ×4 (01:35→21:17)
[2020-08-11] MEDS ORDERED: hydrALAZINE HCL 20 MG/ML VIAL IVPUSH ONE (05:43)
[2020-08-11] MEDS: HEPARIN NA (PORCINE) 5,000 UNITS/ML 1ML VIAL SQ SCH ×3 (06:23→21:18)
[2020-08-11] MEDS: METOCLOPRAMIDE HCL INJECTION 10 MG/2 ML VIAL IVPUSH SCH ×3 (06:23→15:47)
[2020-08-11] MEDS: INSULIN (LEVEMIR) 100 UNITS/ML UNITS SQ SCH (06:24)
[2020-08-11] MEDS: INSULIN SLIDING SCALE (NOVOLOG) 1 VIAL SQ SCH ×4 (06:24→21:18)
[2020-08-11] MEDS: ERYTHROMYCIN INJECTION - 250 MG in SODIUM CHLORIDE 100 ML IVPB SCH ×3 (06:44→17:31)
[2020-08-11 09:04] LABS: BASO % 0.4 % (0-2.0); HEMATOCRIT 43.3 % (35.4-49); HEMOGLOBIN 14.6 GM/dL (11.7-16.9); MCH 31.5 pg (25.7-33.7); MCHC 33.6 g/dl (32.0-35.9); MEAN CELL VOLUME 93.7 fl (80-96); MEAN PLT VOLUME 8.5 fl (7.5-11.1); NEUT % 73.6 % (42.8-82.8); PLATELET COUNT 281 10^3/uL (134-434); RBC 4.62 M/mm3 (4.00-5.60); RDW 13.9 % (11.9-15.9); WHITE BLOOD COUNT 14.2 K/mm3 (4.0-10.0)
[2020-08-11 09:21] LABS: CALCIUM 8.5 mg/dL (8.5-10.1)
[2020-08-11 09:22] LABS: ALBUMIN 3.6 g/dl (3.4-5.0); BLOOD UREA NITROGEN 14.8 mg/dL (7-18)
[2020-08-11 09:26] LABS: PHOSPHOROUS 1.9 mg/dL (2.5-4.9)
[2020-08-11 09:27] LABS: BILIRUBIN,TOTAL 1.3 mg/dL (0.2-1)
[2020-08-11] MEDS ORDERED: PT OWN MED DRAWER 7, Y5N ONE (10:21)
[2020-08-11] MEDS: amLODIPine BESYLATE 10 MG TABLET (FP) PO SCH (10:25)
[2020-08-11] MEDS ORDERED: FAMOTIDINE 20 MG/50 ML IVPB 20 MG/50 ML MG IVPB SCH (10:45)
[2020-08-11] MEDS ORDERED: FAMOTIDINE 20 MG TABLET PO SCH (10:45)
[2020-08-11] MEDS: NAPH,MB-DB/K PH,MBDB POWDER PACKET PO SCH ×2 (16:49→21:18)
[2020-08-11] MEDS: KCL 10 MEQ IVPB 10 MEQ/100 ML INFUS.BAG IVPB SCH ×2 (16:49→18:54)
[2020-08-11] MEDS ORDERED: LORazepam 2 MG/ML SDV VIAL IVPUSH PRN (17:28)
[2020-08-11] MEDS: MORPHINE SULFATE 2 MG/ML VIAL IVPUSH PRN ×2 (18:16→23:55)
[2020-08-11] MEDS: FAMOTIDINE 20 MG/50 ML IVPB 20 MG/50 ML MG IVPB SCH (21:18)
[2020-08-12] MEDS: INSULIN (LEVEMIR) 100 UNITS/ML UNITS SQ SCH (06:03)
[2020-08-12] MEDS: HEPARIN NA (PORCINE) 5,000 UNITS/ML 1ML VIAL SQ SCH ×2 (06:03→14:40)
[2020-08-12] MEDS: INSULIN SLIDING SCALE (NOVOLOG) 1 VIAL SQ SCH ×2 (06:04→12:20)
[2020-08-12 08:30] LABS: BASO % 0.6 % (0-2.0); EOS % 0.1 % (0-4.5); HEMATOCRIT 44.5 % (35.4-49); LYMPH % 18.3 % (8-40); MCH 31.6 pg (25.7-33.7); MCHC 33.7 g/dl (32.0-35.9); MEAN CELL VOLUME 93.8 fl (80-96); MEAN PLT VOLUME 8.1 fl (7.5-11.1); MONO % 12.8 % (3.8-10.2); NEUT % 68.2 % (42.8-82.8); PLATELET COUNT 273 10^3/uL (134-434); RBC 4.75 M/mm3 (4.00-5.60); RDW 13.7 % (11.9-15.9); WHITE BLOOD COUNT 11.1 K/mm3 (4.0-10.0)
[2020-08-12 08:52] LABS: ALBUMIN 3.4 g/dl (3.4-5.0); BLOOD UREA NITROGEN 13.2 mg/dL (7-18); CALCIUM 8.3 mg/dL (8.5-10.1)
[2020-08-12 08:55] LABS: CREATININE 0.9 mg/dL (0.55-1.3)
[2020-08-12 08:56] LABS: BILIRUBIN,TOTAL 1.1 mg/dL (0.2-1); PHOSPHOROUS 1.8 mg/dL (2.5-4.9); TOT PROT 6.8 g/dl (6.4-8.2)
[2020-08-12] MEDS ORDERED: hydrALAZINE HCL 20 MG/ML VIAL IVPUSH PRN ×2 (09:30→09:33)
[2020-08-12] MEDS ORDERED: NAPH,MB-DB/K PH,MBDB POWDER PACKET PO ONE (09:31)
[2020-08-12] MEDS: amLODIPine BESYLATE 10 MG TABLET (FP) PO SCH (09:51)
[2020-08-12] MEDS: FAMOTIDINE 20 MG/50 ML IVPB 20 MG/50 ML MG IVPB SCH (09:52)
[2020-08-12] MEDS: KCL 10 MEQ IVPB 10 MEQ/100 ML INFUS.BAG IVPB SCH ×3 (10:55→14:40)
[2020-08-12 11:56] VITALS: PULSE 84
[2020-08-12] MEDS: SODIUM CHLORIDE 1,000 ML IV SCH (12:20)
[2020-08-12] MEDS ORDERED: hydrALAZINE HCL 10 MG TABLET PO SCH (14:00)
[2020-08-12 15:21] VITALS: BP 134/93; TEMP 98.7
[2020-08-12 20:08] LABS: TRANSGLUTAMINASE IGA < 2 U/mL (0-3); TRANSGLUTAMINASE IGG < 2 U/mL (0-5)
== END 2020-08-12 16:45 | disposition home or self-care (01) | DRG 48 ==
LOC: JER 04:20 → JERBED 08:33 → J5S 09:42
PROVIDERS: ATTEND Internal Medicine
DX: E11.43 Type 2 diabetes mellitus with diabetic autonomic (poly)neuropathy (principal); D72.829 Elevated white blood cell count, unspecified; N17.9 Acute kidney failure, unspecified; E86.0 Dehydration; E11.65 Type 2 diabetes mellitus with hyperglycemia; F12.229 Cannabis dependence with intoxication, unspecified; K31.84 Gastroparesis; M62.82 Rhabdomyolysis; R94.31 Abnormal electrocardiogram [ECG] [EKG]; E83.39 Other disorders of phosphorus metabolism; E87.6 Hypokalemia; K92.0 Hematemesis
CPT/HCPCS: 36415; 71045-TC-FY; 74176-TC; 80048; 80053; 80307; 81003; 82010; 82550; 82553; 82803; 82962; 83516; 83605; 83690; 83735; 84100; 84436; 84439; 84443; 84481; 84484; 85025; 85027; 87086; 93005; 93010; 99285-25; C9803; J0131; J1644; U0003; U0005

== ENCOUNTER 2022-01-24 13:57 | Emergency (ER) | payer OTHER ==
[2022-01-24 14:38] VITALS: BMI 28.7
[2022-01-24] MEDS ORDERED: LACTATED RINGERS SOLUTION 1000 ML INFUS.BAG IV ONE (15:05)
[2022-01-24] MEDS ORDERED: ONDANSETRON 4 MG/2 ML VIAL IVPUSH ONE (15:05)
[2022-01-24] MEDS ORDERED: FAMOTIDINE 20 MG/50 ML IVPB 20 MG/50 ML MG IVPB ONE ×2 (15:05→15:29)
[2022-01-24] MEDS ORDERED: ACETAMINOPHEN 1000 MG/100 ML BAG IVPB ONE (15:05)
[2022-01-24] MEDS ORDERED: ONDANSETRON 4 MG/2 ML VIAL ONE (15:29)
[2022-01-24] MEDS ORDERED: ACETAMINOPHEN INJECTION 100 ML IVPB ONE (15:29)
[2022-01-24 15:51] LABS: BASO % 0.8 % (0-2.0); EOS % 2.7 % (0-4.5); HEMATOCRIT 43.7 % (35.4-49); HEMOGLOBIN 14.7 GM/dL (11.7-16.9); LYMPH % 30.4 % (8-40); MCH 31.7 pg (25.7-33.7); MCHC 33.6 g/dl (32.0-35.9); MEAN CELL VOLUME 94.2 fl (80-96); MEAN PLT VOLUME 8.6 fl (7.5-11.1); NEUT % 57.1 % (42.8-82.8); PLATELET COUNT 309 10^3/uL (134-434); RBC 4.64 M/mm3 (4.00-5.60); RDW 13.8 % (11.9-15.9); WHITE BLOOD COUNT 8.1 K/mm3 (4.0-10.0)
[2022-01-24 16:09] LABS: ALBUMIN 3.6 g/dl (3.4-5.0); BLOOD UREA NITROGEN 14.4 mg/dL (7-18); MAGNESIUM 1.9 mg/dL (1.8-2.4)
[2022-01-24 16:12] LABS: CREATININE 1.2 mg/dL (0.55-1.3)
[2022-01-24 16:14] LABS: BILIRUBIN,TOTAL 0.6 mg/dL (0.2-1); TOT PROT 6.7 g/dl (6.4-8.2)
[2022-01-24] MEDS ORDERED: METOCLOPRAMIDE HCL INJECTION 10 MG/2 ML VIAL IVPUSH ONE ×2 (17:53→19:36)
[2022-01-24] MEDS ORDERED: METOCLOPRAMIDE HCL INJECTION 10 MG/2 ML VIAL ONE ×2 (18:01→20:07)
[2022-01-24 18:56] VITALS: BP 155/87; PULSE 72; RESP 16; TEMP 98.3
[2022-01-24] MEDS ORDERED: morphine CARPU-JECT 4 MG/1 ML DISP.SYRIN IVPUSH ONE ×2 (19:36→19:51)
== END 2022-01-24 22:11 | disposition home or self-care (01) ==
LOC: JER 13:57
PROC: 3E0333Z Introduction of Anti-inflammatory into Peripheral Vein, Percutaneous Approach (ICD-10-PCS; principal; 2022-01-24)
PROC: 3E033GC Introduction of Other Therapeutic Substance into Peripheral Vein, Percutaneous Approach (ICD-10-PCS; 2022-01-24)
PROC: 3E033GC Introduction of Other Therapeutic Substance into Peripheral Vein, Percutaneous Approach (ICD-10-PCS; 2022-01-24)
PROC: 3E033GC Introduction of Other Therapeutic Substance into Peripheral Vein, Percutaneous Approach (ICD-10-PCS; 2022-01-24)
PROC: 3E033NZ Introduction of Analgesics, Hypnotics, Sedatives into Peripheral Vein, Percutaneous Approach (ICD-10-PCS; 2022-01-24)
PROC: 3E033NZ Introduction of Analgesics, Hypnotics, Sedatives into Peripheral Vein, Percutaneous Approach (ICD-10-PCS; 2022-01-24)
PROC: 3E033GC Introduction of Other Therapeutic Substance into Peripheral Vein, Percutaneous Approach (ICD-10-PCS; 2022-01-24)
DX: R10.31 Right lower quadrant pain (principal)
CPT/HCPCS: 0241U-QW; 36415; 71045-TC-FY; 74177-TC; 76705-TC; 80053; 83690; 83735; 85025; 93005; 93010; 99285-25; Q9967